=== PATIENT | female | born 1995 | race Caucasian/White ===

== ENCOUNTER 2022-12-24 20:24 | Observation (INO) | payer OTHER, MEDICAID, SELFPAY ==
[2022-12-24 20:27] VITALS: BP 158/90; PULSE 95; RESP 20; TEMP 36.2; O2SAT 100
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
[2022-12-24] MEDS: ACETAMINOPHEN 500 MG TABLET 1000 MG PO (21:48)
[2022-12-24 22:10] VITALS: BMI 48.3
[2022-12-24 22:14] VITALS: BP 117/56; PULSE 75; RESP 18; TEMP 36.4
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
--- NOTE | 2022-12-24 22:34 | PC.NURSE ---
Dr. Dale aware of difficulty monitoring FHT due to maternal size and gestational age. FHR 135, no contractions noted, PT reports she does not feel contractions.
--- NOTE | 2022-12-24 22:40 | LDADM ---
This patient, Geneva Allen, was admitted to OB Post 116 on 12/24/22 at 21:53. Plans for labor, pain management and were discussed with patient. Patient/family oriented to hospital policies and general routines including ID bracelet, bed and alarms, visiting hours, pain management, procedures, bathroom and other care routines, personal items, smoking policy, room service/diet and guest tray routines, infant security routines, and visiting hours. Patient/Family are encouraged to report perceived risks to care and to ask questions if they do not understand what they are told or what they should do. See OBIX for further documentation.
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
== END 2022-12-24 23:09 | disposition home or self-care (01) ==
LOC: ANHED 21:40 → ANHOBPP 21:57
PROVIDERS: Admitting Provider Obstetrics & Gynecology; Emergency Provider Emergency Medicine; PCP Nurse Practitioner Family; Visit Provider Obstetrics & Gynecology
DX: Z04.1 Encounter for examination and observation following transport accident (principal); Z3A.21 21 weeks gestation of pregnancy
CPT/HCPCS: 99285; A9270; G0378; G0379

== ENCOUNTER 2023-03-10 17:06 | Outpatient (CLI) | payer OTHER, MEDICAID, SELFPAY ==
--- NOTE | ~2023-03-10 | US_ITS ---
EXAMINATION: US OB BPP wo non-stress DATE: 03/10/2023 21:14 INDICATION: Nonreactive NST. TECHNIQUE: Real-time ultrasound of the pelvis was performed. COMPARISON: None. FINDINGS: There is a single living fetus in breech presentation, transverse lie. The placenta is posterior to the right. The cervix was obscured. heart rate is 143 bpm. The amniotic fluid index is 18.1 cm, which is normal (5th to 95th percentile is 8.6 to 24.2 cm). Biophysical profile performed by the technologist: breathing (30 sec sustained breathing in 30 minutes): 2 out of 2. movement (3 gross body movements in 30 minutes: 2 out of 2. tone (one episode of dkgcebr-ksyfpseoh-gdqkpqd limb movement): 2 out of 2. Amniotic fluid pocket (2 cm): 2 out of 2. Total score: 8 out of 8. IMPRESSION: Single living fetus in breech presentation. Biophysical profile 8 out of 8. Reviewed, dictated and finalized at location K.
[2023-03-10 17:34] VITALS: BP 96/65; PULSE 90
[2023-03-10 17:38] LABS: Basophils Percent Auto 0.2 % (0.2-1.2); Eosinophils Absolute Auto 0.1 K/mm3 (0-0.3); Eosinophils Percent Auto 0.7 % (0-4.4); Hemoglobin 10.2 g/dL (12.0-15.0); Immature Granulocyte Absolute 0.06 K/mm3 (0.00-0.031); Immature Granulocyte Percent A 0.5 % (0-0.5); Lymphocytes Absolute Auto 2.15 K/mm3 (0.9-3.2); Lymphocytes Percent Auto 16.8 % (18.3-44.2); Mean Corpuscular HGB Conc 31.9 g/dl (32-36); Mean Corpuscular Hemoglobin 24.8 pg (26-34); Mean Corpuscular Volume 77.9 fl (80-100); Mean Platelet Volume 9.5 fl (7.4-10.4); Monocytes Absolute Auto 1.1 K/mm3 (0.1-0.6); Monocytes Percent Auto 8.8 % (2.6-8.5); Neutrophils Absolute Auto 9.3 K/mm3 (1.3-6.7); Platelet Count Result 341 k/mm3 (150-375); Red Blood Count 4.11 M/mm3 (4.2-5.4); Red Cell Distribution Width 15.9 % (11.5-14.5); White Blood Count 12.8 K/mm3 (4.5-10.0)
[2023-03-10 17:45] LABS: Appearance Urine Cloudy (Clear); Bacteria Urine 2+ /hpf; Bilirubin Urine Negative (Negative); Blood Urine Negative (Negative); Color Urine Yellow (Yellow); Glucose Urine UA Negative (Negative); Ketones Urine Trace mg/dL (Negative); Leukocyte Esterase Ur Trace LEU/UL (NEGATIVE); Nitrate Urine Negative (Negative); Non Pathogenic Casts 0-2; Protein Urine Trace mg/dL (Negative); RBC Urine 0-2 /hpf (0-2); Specific Grav Ur 1.028 (1.001-1.035); Squamous Epithelial Cell Urine Many /hpf (Few); pH Urine 5.5 (5.0-9.0)
[2023-03-10 17:46] VITALS: BP 120/73; PULSE 86; TEMP 36.5
[2023-03-10 17:48] LABS: Alanine Aminotransferase 19 U/L (6-35); Albumin Level 3.6 g/dL (3.5-5.1); Alkaline Phosphatase 90 U/L (38-126); Anion Gap 7 mmol/L (8-16); Aspartate Amino Transferase 23 U/L (14-36); Bilirubin,Total 0.3 mg/dL (0.2-1.3); Blood Urea Nitrogen 9 mg/dL (7-17); Calcium 9.2 mg/dL (8.4-10.2); Carbon Dioxide 23 mmol/L (22-30); Chloride 100 mmol/L (98-107); Estimated Glomerular Filt Rate > 60; Glucose 85 mg/dL (65-110); Potassium 3.9 mmol/L (3.4-5.0); Sodium 130 mmol/L (137-145); Uric Acid 3.9 mg/dL (2.5-7.5)
[2023-03-10 17:49] LABS: Add Urine Microscopic? YES; Creatinine Urine 213.3 mg/dL
[2023-03-10 18:01] VITALS: BP 145/81; PULSE 88
[2023-03-10] MEDS: ACETAMINOPHEN 500 MG TABLET 1000 MG PO (18:15)
[2023-03-10 18:31] VITALS: BP 122/84; PULSE 90
[2023-03-10 18:46] VITALS: BP 129/65; PULSE 90
[2023-03-10 18:47] LABS: Total Protein Urine Random < 5 mg/dL; Ur Ttl Prot Creatinine Ratio < 0.02 mg/mg (0-0.20)
== END 2023-03-10 21:10 | disposition home or self-care (01) ==
LOC: ANHOBOP 17:13 → ANHOBPP 17:13
PROVIDERS: Advanced Practice Midwife; PCP Nurse Practitioner Family; Visit Provider Obstetrics & Gynecology
DX: O13.9 Gestational [pregnancy-induced] hypertension without significant proteinuria, unspecified trimester (principal); Z3A.00 Weeks of gestation of pregnancy not specified
CPT/HCPCS: 36415; 76819; 80053; 81001; 82570; 84156; 84550; 85025; 87086; 99199; A9270

== ENCOUNTER 2023-04-20 16:13 | Inpatient (IN) | payer OTHER, MEDICAID, SELFPAY ==
[2023-04-20] VITALS (11 sets, daily range): BP systolic 94–129; BP diastolic 57–98; PULSE 80–113; TEMP 36.1–36.5; BMI 51.7
--- NOTE | 2023-04-20 16:36 | LDADM ---
This patient, Geneva Allen, was admitted to Labor/Delivery/Recovery 104 on 04/20/23 at 16:13. Plans for labor, pain management and were discussed with patient. Patient/family oriented to hospital policies and general routines including ID bracelet, bed and alarms, visiting hours, pain management, procedures, bathroom and other care routines, personal items, smoking policy, room service/diet and guest tray routines, security routines, and visiting hours. Patient/Family are encouraged to report perceived risks to care and to ask questions if they do not understand what they are told or what they should do. See OBIX for further documentation.
[2023-04-20] MEDS: DINOPROSTONE 10 MG VAG INSERT VAGINAL (16:40)
[2023-04-20 16:42] LABS: Basophils Percent Auto 0.1 % (0.2-1.2); Eosinophils Absolute Auto 0.1 K/mm3 (0-0.3); Eosinophils Percent Auto 0.6 % (0-4.4); Hemoglobin 10.6 g/dL (12.0-15.0); Immature Granulocyte Absolute 0.03 K/mm3 (0.00-0.031); Immature Granulocyte Percent A 0.3 % (0-0.5); Lymphocytes Absolute Auto 2.25 K/mm3 (0.9-3.2); Lymphocytes Percent Auto 18.8 % (18.3-44.2); Mean Corpuscular HGB Conc 32.1 g/dl (32-36); Mean Corpuscular Hemoglobin 24.6 pg (26-34); Mean Corpuscular Volume 76.6 fl (80-100); Mean Platelet Volume 9.8 fl (7.4-10.4); Monocytes Percent Auto 8.5 % (2.6-8.5); Neutrophils Absolute Auto 8.6 K/mm3 (1.3-6.7); Neutrophils Percent Auto 71.7 % (45.5-73.1); Platelet Count Result 326 k/mm3 (150-375); Red Blood Count 4.31 M/mm3 (4.2-5.4); Red Cell Distribution Width 15.1 % (11.5-14.5)
[2023-04-20] MEDS: ESCITALOPRAM OXALATE 10 MG TABLET 20 MG PO (21:24)
[2023-04-20] MEDS: LABETALOL HCL 100 MG TABLET 200 MG PO (21:24)
[2023-04-21] VITALS (97 sets, daily range): BP systolic 121–176; BP diastolic 46–133; PULSE 65–96; TEMP 36.1–36.9; O2SAT 90–100
[2023-04-21] MEDS: miSOPROStol 25 MCG TABLET PO ×3 (02:41→11:25)
[2023-04-21] MEDS: LEVOTHYROXINE SODIUM 88 MCG TABLET PO (07:09)
--- NOTE | 2023-04-21 07:24 | WPDOBADMIT ---
Obstetrics - Admit Note Admission Note: record reviewed. No pertinent additions to the history and/or any subsequent changes in the physical findings that are not consistent with the expected course of the were found. Admit for IOL for chronic hypertension, obesity,plan cytotec, anticipate vaginal delivery Additions to the history and/or subsequent changes in the physical findings follow. None.
[2023-04-21] MEDS: LABETALOL HCL 100 MG TABLET 200 MG PO ×2 (08:51→21:07)
[2023-04-21] MEDS: fentaNYL CITRATE INJ (*CRX) 100 MCG/2 ML VIAL IV PUSH ×2 (12:40→17:40)
[2023-04-21 15:21] LABS: Rapid Plasma Reagin Non-Reactive (NonReactive)
[2023-04-21] MEDS: LACTATED RINGERS 1,000 ML 125 ML IV CONT ×2 (16:00→21:07)
[2023-04-21] MEDS: OXYTOCIN 30 UNITS/NS 500 ML 30 UNITS/500 ML BAG 6 UNITS IV CONT (16:01)
--- NOTE | 2023-04-21 17:55 | PM.OBPNVD ---
OB - PN: Subj Subjective Date/time seen: 04/21/23 17:55 sve 1.5/60/-3, cooks catheter placed 60cc each balloon, pt tolerated well, pitocin, anticipate vaginal delivery OB - PN: Obj Data Labs 04/20/23 16:22 Labs: Laboratory Results - last 24 hr 04/20/23 16:22 RPR Non-reactive OB - PN A/P Time Spent With Patient Time: Total time spent is greater than 50% in coordination of care (as documented) at patient's floor/unit and/or counseling patient:
--- NOTE | 2023-04-21 21:56 | WPDANESEPN ---
Anes - Epidural Procedure Note Date/Time: 04/21/23 21:56 Consent: I have discussed with the patient/family/POA, the placement of an epidural catheter and the use of epidural narcotic/local anesthetic for labor analgesia and/or postoperative pain management, including associated potential risks, benefits, complications and side effects. I have discussed alternative methods of labor analgesia and/or postoperative pain management. The patient/family/POA, understand(s) and wish(es) to proceed with epidural narcotic/local anesthetic for labor analgesia and/or postoperative pain management. Time-Out: A pre-procedural Time-Out was completed immediately before starting the procedure and confirmed: Patient Identification, Site, Procedure, Patient Position and the Availability of Requisite Equipment. Clinical Indications: Labor pain Epidural Insertion Note Patient position: sitting Skin prep: chlorhexidine and sterile drape Needle: 18g Tuohy-Schliff Catheter: 20g Unstyleted Technique: Loss of resistance. Level of insertion: L4/5 Catheter skin darren (cm): 15 Length in epidural space (cm): 10 Skin anesthesia: lidocaine 1% Test dose: 1.5% Lidocaine with 1:[id number] Epi, negative for subarachnoid Inj and negative for intravascular Inj Time of test dose: 21:46 Observations: tolerated well Complications: none
[2023-04-22] VITALS (368 sets, daily range): BP systolic 86–211; BP diastolic 48–185; PULSE 50–161; TEMP 35.9–36.4; O2SAT 85–100
--- NOTE | 2023-04-22 08:06 | PM.OBPNVD ---
OB - PN: Subj Subjective Date/time seen: 04/22/23 08:06 comfortable with epidural SVE 5/-2, AROM clear, odorless fluid, anticipate vaginal delivery OB - PN: Obj Data Labs 04/20/23 16:22 Labs: Laboratory Results - last 24 hr 04/20/23 16:22 RPR Non-reactive OB - PN A/P Time Spent With Patient Time: Total time spent is greater than 50% in coordination of care (as documented) at patient's floor/unit and/or counseling patient:
[2023-04-22] MEDS: LABETALOL HCL 100 MG TABLET 200 MG PO ×2 (09:35→19:24)
[2023-04-22] MEDS: LEVOTHYROXINE SODIUM 88 MCG TABLET PO (09:35)
[2023-04-22] MEDS: LACTATED RINGERS 1,000 ML 125 ML IV CONT ×2 (09:59→17:46)
[2023-04-22] MEDS: ESCITALOPRAM OXALATE 10 MG TABLET 20 MG PO (19:24)
[2023-04-23] VITALS (126 sets, daily range): BP systolic 68–156; BP diastolic 40–111; PULSE 42–154; RESP 16–20; TEMP 35.9–36.8; O2SAT 77–100
[2023-04-23] MEDS: ONDANSETRON INJ 4 MG/2 ML VIAL IV PUSH (01:31)
--- NOTE | 2023-04-23 01:47 | WPDANESEPN ---
Anes - Epidural Procedure Note Date/Time: 04/23/23 01:47 Consent: I have discussed with the patient/family/POA, the placement of an epidural catheter and the use of epidural narcotic/local anesthetic for labor analgesia and/or postoperative pain management, including associated potential risks, benefits, complications and side effects. I have discussed alternative methods of labor analgesia and/or postoperative pain management. The patient/family/POA, understand(s) and wish(es) to proceed with epidural narcotic/local anesthetic for labor analgesia and/or postoperative pain management. Time-Out: A pre-procedural Time-Out was completed immediately before starting the procedure and confirmed: Patient Identification, Site, Procedure, Patient Position and the Availability of Requisite Equipment. Clinical Indications: labor pain Epidural Insertion Note Patient position: sitting Skin prep: chlorhexidine and sterile drape Technique: Loss of resistance. Skin anesthesia: lidocaine 1% Test dose: 1.5% Lidocaine with 1:[id number] Epi, negative for subarachnoid Inj and negative for intravascular Inj Time of test dose: 21:46 Observations: tolerated well Complications: none
[2023-04-23] MEDS: diphenhydrAMINE HCl INJ 50 MG/ML VIAL IV PUSH (02:10)
--- NOTE | 2023-04-23 04:36 | PM.IMHP ---
H&P: HPI History of Present Illness Date/Time: 04/23/23 04:36 Chief Complaint: pt in labor. pt has been admitted since 04/20 for Induction of labor. has been complicated by chronic hypertension , obsesity, hypothyroidism, anxiety, marginal umbilical cord insertion and circumvallate placenta. Blood pressures have been stable throughout and pt denies any complaints of headache, visual changes, or any pain. pt is currently comfortable with epidural. FHR category 2, contractions now occasional, pitocin has been stopped. Review of Systems Review of Systems: All systems reviewed & are unremarkable except as noted in HPI and below PMFSH Past Medical History Medical History Hypertension Family History Family History (Updated 04/10/23 @ 14:48 by Liz Madera RN) Grandparent Asthma Grandparent Leukemia Grandparent History of heart surgery Social History Social History Smoking status: Never smoker Substance use: never Lack of Transportation: No Lack of Food: Never True Current Housing: I Have Housing Concerned About Future Housing: No Difficulty Paying Gas/Electric Bills: No Difficulty Paying for Meds: No Currently Unemployed: No Education: Don't Know Difficulty w/ Childcare or Family Care: No Spiritual care concerns: No Meds Home Medications and Allergies Home Medications Medication Instructions Recorded Confirmed Type aspirin 81 mg chewable tablet 81 mg PO DAILY 04/10/23 04/20/23 History escitalopram oxalate 20 mg tablet 20 mg PO DAILY 04/10/23 04/10/23 History labetalol 200 mg tablet 200 mg PO BID 04/10/23 04/10/23 History levothyroxine 88 mcg tablet 88 mcg PO DAILY 04/10/23 04/10/23 History ondansetron 4 mg disintegrating 4 mg PO DAILY 04/10/23 04/10/23 History tablet vit#24-iron amino acid 1 tablet PO DAILY 04/10/23 04/10/23 History chelat-folic acid 30 mg-975 mcg tablet Allergies Allergy/AdvReac Type Severity Reaction Status Date / Time No Known Allergies Allergy Mild Verified 04/10/23 14:30 Vital Signs Vital Signs - 24 hr 04/22/23 04:41 04/22/23 04:46 04/22/23 04:47 Temperature Pulse Rate 78 Blood Pressure 111/64 Pulse Oximetry 96 94 04/22/23 04:51 04/22/23 04:56 04/22/23 05:01 Temperature Pulse Rate Blood Pressure Pulse Oximetry 92 97 95 04/22/23 05:02 04/22/23 05:06 04/22/23 05:11 Temperature Pulse Rate 80 Blood Pressure 128/68 Pulse Oximetry 96 97 04/22/23 05:16 04/22/23 05:17 04/22/23 05:21 Temperature Pulse Rate 88 Blood Pressure 130/63 Pulse Oximetry 96 100 04/22/23 05:26 04/22/23 05:31 04/22/23 05:32 Temperature Pulse Rate 64 Blood Pressure 134/65 Pulse Oximetry 100 98 04/22/23 05:36 04/22/23 05:41 04/22/23 05:46 Temperature Pulse Rate Blood Pressure Pulse Oximetry 100 100 99 04/22/23 05:47 04/22/23 05:51 04/22/23 05:56 Temperature Pulse Rate 82 Blood Pressure 134/63 Pulse Oximetry 98 97 04/22/23 06:01 04/22/23 06:02 04/22/23 06:06 Temperature Pulse Rate 61 Blood Pressure 147/56 H Pulse Oximetry 94 97 04/22/23 06:11 04/22/23 06:16 04/22/23 06:17 Temperature Pulse Rate 64 Blood Pressure 150/64 H Pulse Oximetry 95 89 L 04/22/23 06:21 04/22/23 06:26 04/22/23 06:31 Temperature Pulse Rate Blood Pressure Pulse Oximetry 95 94 99 04/22/23 06:36 04/22/23 06:41 04/22/23 06:46 Temperature Pulse Rate Blood Pressure Pulse Oximetry 100 100 99 04/22/23 06:47 04/22/23 06:51 04/22/23 06:56 Temperature Pulse Rate 76 Blood Pressure 114/98 H Pulse Oximetry 100 100 04/22/23 07:01 04/22/23 07:05 04/22/23 07:06 Temperature Pulse Rate 67 Blood Pressure 86/65 L Pulse Oximetry 100 100 04/22/23 07:08 04/22/23 07:11 04/22/23 07:16 Tempera
[2023-04-23] MEDS: KETOROLAC 30 MG/ML VIAL (*BKC) IV PUSH ×2 (05:30→15:01)
--- NOTE | 2023-04-23 05:52 | P.PNAN_ITS ---
Anes - Eval Final PreProcedure Day of Procedure 04/23/23 05:52 Patient weight: super morbidly obese Heart: regular rate and rhythm Lungs: clear to auscultation Neurological: alert and oriented ASA classification: III Emergent: no Anesthetic plan: proceed Anesthesia type and monitoring: regional epidural and standard monitoring Other findings: existing epid for c/s exam per GW Results Review: All pre-operative results and documents have been reviewed as part of the pre- operative evaluation. Informed Consent: The patient's anesthetic plan and its attendant risks and benefits were discussed with the patient/family/POA. Questions were solicited and answers provided to the satisfaction of the patient/family/POA.
[2023-04-23] MEDS: OXYTOCIN 30 UNITS/NS 500 ML 30 UNITS/500 ML BAG 125 UNITS IV CONT (06:13)
--- NOTE | 2023-04-23 10:07 | OBPPTRN ---
0800 Patient transferred to post room #284 via stretcher. Support person present. Oriented to unit, room, information board, rooming in, admission packet and security measures. Patient verbalizes understanding.
[2023-04-23] MEDS: LACTATED RINGERS 1,000 ML 125 ML IV CONT (10:42)
[2023-04-23] MEDS: LABETALOL HCL 100 MG TABLET 200 MG PO ×2 (10:43→21:12)
[2023-04-23] MEDS: ESCITALOPRAM OXALATE 10 MG TABLET 20 MG PO (10:44)
--- NOTE | 2023-04-23 12:14 | PC.NURSE ---
[id number] Introductions were made, then consulted with patient to assess needs related to . Mother led the conversation with her?plans to feed?her infant and the?experience so far. There is separation between mother and infant at this time. RN recommended to mother to initiate hand expression or pumping as she desires to feed infant the colostrum. Mother opts to initiate pumping. Breast pump provided due to separation. Instructions given on cleaning, care, usage, that there should be no pain, pumping schedule for milk production, collection, and storage of human milk. Patient was assessed for correct placement, flange size, to pump for comfort and nipple stretching/stimulation for adequate milk production every 3 hours (8 times in 24 hours) 1-2 times at night. Mother voiced understanding of the education shared along with mom and baby guide for additional resource information. Reported to the primary RN.
[2023-04-23] MEDS: HYDROcodone/acetaminophen (*CRX) 5-325 MG TABLET 1 TAB PO ×2 (19:46→22:46)
[2023-04-23] MEDS: SIMETHICONE 80 MG TAB.CHEW PO ×2 (19:47→22:47)
[2023-04-23] MEDS: DOCUSATE SODIUM 100 MG CAPSULE PO (19:47)
[2023-04-23] MEDS: IBUPROFEN 600 MG TABLET PO (22:47)
[2023-04-24 00:04] VITALS: BP 134/62; PULSE 88; RESP 18; TEMP 36.3; O2SAT 100
[2023-04-24] MEDS: LORATADINE 10 MG TABLET PO (01:12)
[2023-04-24] MEDS: SIMETHICONE 80 MG TAB.CHEW PO (04:06)
[2023-04-24] MEDS: HYDROcodone/acetaminophen (*CRX) 10-325 MG TABLET 1 TAB PO ×4 (04:06→22:45)
[2023-04-24 04:38] LABS: Basophils Percent Auto 0.1 % (0.2-1.2); Eosinophils Absolute Auto 0.1 K/mm3 (0-0.3); Eosinophils Percent Auto 0.3 % (0-4.4); Hematocrit 31.5 % (37.0-47.0); Immature Granulocyte Absolute 0.11 K/mm3 (0.00-0.031); Immature Granulocyte Percent A 0.5 % (0-0.5); Lymphocytes Percent Auto 9.1 % (18.3-44.2); Mean Corpuscular HGB Conc 31.7 g/dl (32-36); Mean Corpuscular Hemoglobin 24.8 pg (26-34); Mean Corpuscular Volume 78.2 fl (80-100); Mean Platelet Volume 9.8 fl (7.4-10.4); Monocytes Percent Auto 9.2 % (2.6-8.5); Neutrophils Absolute Auto 17.7 K/mm3 (1.3-6.7); Neutrophils Percent Auto 80.8 % (45.5-73.1); Platelet Count Result 305 k/mm3 (150-375); Red Blood Count 4.03 M/mm3 (4.2-5.4); Red Cell Distribution Width 15.1 % (11.5-14.5)
[2023-04-24 05:08] VITALS: BP 145/68; PULSE 84; RESP 18; TEMP 35.8; O2SAT 100
--- NOTE | 2023-04-24 05:12 | P.PNOB_ITS ---
OB - PN: Subj Subjective Date/time seen: 04/24/23 05:12 pp day 1 s/p section, primary baby at [facility] doing well, Iv antibiotics pain managed flatus present OB - PN: Obj Data Labs 04/20/23 16:22 OB - PN A/P Plan day: 1 Plan: routine care and other (may go out on pass to see baby today) Time Spent With Patient Time: Total time spent is greater than 50% in coordination of care (as documented) at patient's floor/unit and/or counseling patient: Review of Systems Review of Systems: All systems reviewed & are unremarkable except as noted in HPI and below Exam Const: General: cooperative and healthy appearing Chest: Chest palpation & inspection: normal inspection of the chest Resp: Effort & Inspection: normal respiratory effort Cardio: Rate: regular rate Rhythm: regular rhythm GI: Other: Incision CDI Skin: General skin exam: normal color Neuro: General: patient oriented x3 Extrem: Right lower extremity: edema Left lower extremity: edema Psych: Appearance: grossly normal
[2023-04-24] MEDS: LEVOTHYROXINE SODIUM 88 MCG TABLET PO ×2 (06:54→07:00)
[2023-04-24 10:30] VITALS: BP 137/68; PULSE 90; RESP 18; TEMP 36.4; O2SAT 100
[2023-04-24] MEDS: IBUPROFEN 600 MG TABLET PO ×2 (10:44→19:35)
[2023-04-24 10:46] VITALS: PULSE 90
[2023-04-24] MEDS: LABETALOL HCL 100 MG TABLET 200 MG PO ×2 (10:46→20:45)
[2023-04-24] MEDS: DOCUSATE SODIUM 100 MG CAPSULE PO ×2 (10:52→19:37)
[2023-04-24] MEDS: MULTIVIT/MIN/PREN/FOL AC/IRON TABLET 1 TAB PO (10:52)
--- NOTE | 2023-04-24 11:30 | PC.NURSE ---
Patient left on pass to see at [facility]. Documentation signed and on front of chart.
--- NOTE | 2023-04-24 17:20 | WPDANLDPN2 ---
Anes-Prog Note L&D Date/Time: 04/24/23 17:20 Comfortable throughout: section Neuraxial method: epidural Epidural/Spinal procedure site: clean & non-tender Neuro status: Neuro function grossly intact. Cardiovascular status: normal Respiratory status: normal Airway patency: baseline Mental status: baseline Post-Op hydration status: normal Vital Signs: Last Vital Signs Temp 36.4 C 04/24/23 10:30 Pulse 90 04/24/23 10:46 Resp 18 04/24/23 10:30 BP 137/68 04/24/23 10:30 Pulse Ox 100 04/24/23 10:30 O2 Del Method Room Air 04/24/23 10:30 Pain score (VAS): no complaints I/O: Intake & Output 04/24/23 04/24/23 04/24/23 07:59 15:59 23:59 Intake Total 700 Output Total 800 Balance -100 Post-procedural complaints: none Patient feedback: Patient satisfied with anesthetic care.
--- NOTE | 2023-04-24 17:21 | WPDANLDNPN2 ---
Anes-Prog Note L&D-Neuraxial Date/Time: 04/24/23 17:21 Neuraxial medications: epidural PF morphine Opiod-related complaints: none Patient feedback: Patient satisfied with post-operative pain management.
[2023-04-24] MEDS: POLYSACCHARIDE IRON COMPLEX 150 MG CAPSULE PO (19:34)
[2023-04-24 20:45] VITALS: PULSE 102
[2023-04-24] MEDS: ESCITALOPRAM OXALATE 10 MG TABLET 20 MG PO (20:45)
[2023-04-25 00:01] VITALS: BP 157/82; PULSE 102; RESP 18; TEMP 37.1; O2SAT 98
[2023-04-25] MEDS: LEVOTHYROXINE SODIUM 88 MCG TABLET PO (06:54)
[2023-04-25] MEDS: HYDROcodone/acetaminophen (*CRX) 10-325 MG TABLET 1 TAB PO (06:57)
[2023-04-25 07:00] VITALS: BP 133/75; PULSE 73; RESP 18; TEMP 36.5
--- NOTE | 2023-04-25 08:54 | W.PM.PROC2 ---
Procedure Note - Detailed Date of Procedure 04/25/23 Pre-op Diagnosis failure to descend, nonreassuring FHT's Post-op Diagnosis Same Procedure Performed Low-transverse section Surgeon Yani Dale MD Anesthesia Spinal Findings Normal gestational maternal anatomy, average size , normal Apgars. Description of Procedure The patient was taken the operating room. She was prepped and draped in dorsal supine position with a leftward tilt. This was done after spinal anesthetic was applied. A low-transverse skin incision was made and carried down till of the fascia with the knife. The fascial incision was made with the knife. The fascial incision was extended laterally with Martinez scissors. The fascia was tented upward superiorly and inferiorly the rectus muscles were dissected off bluntly. The rectus muscles were the midline. The preperitoneal fat and peritoneum were dissected open bluntly at the superior aspect of the rectus muscles. The peritoneal incision was extended superior and inferior with good position of bladder. The uterine incision was made with a scalpel down to the level of the amniotic cavity. The amniotic cavity was entered bluntly. The was delivered. The cord was clamped and cut and the was handed off to waiting pediatric staff. Cord bloods were obtained. The placenta was removed manually. The uterus was exteriorized. The uterus was cleared of all clots, debris and membranes. The uterus was closed in 0 Vicryl running lock fashion. An imbricating over a was placed along the incision line as well. The uterus was returned to the abdomen. The gutters were cleared of all clots and debris. The fascia was closed with 0 Vicryl running fashion. The subcutaneous tissue was irrigated pinpoint bleeders were cauterized. The skin was closed with subcuticular absorbable salvador. The skin incision line was covered with glue. The patient tolerated the procedure well. She has taken recovery room in stable condition. Sponge lap and needle counts were correct x2. Estimated Blood Loss -558.0 Urine Output 800 Complications No immediate complications Condition Stable Disposition PACU
[2023-04-25 09:53] VITALS: PULSE 100
[2023-04-25] MEDS: MULTIVIT/MIN/PREN/FOL AC/IRON TABLET 1 TAB PO (09:53)
[2023-04-25] MEDS: LABETALOL HCL 100 MG TABLET 200 MG PO (09:53)
[2023-04-25] MEDS: DOCUSATE SODIUM 100 MG CAPSULE PO (09:53)
[2023-04-25] MEDS: TETANUS,DIPHTHERIA,AC PERTUSSIS ADULT (0.5 ML) BOOSTRIX IM (09:54)
--- NOTE | 2023-04-25 09:54 | PM.OBPNVD ---
OB - PN: Subj Subjective Date/time seen: 04/25/23 09:54 Patient comments: no complaints, pain well controlled, incisional pain, tolerating diet and flatus present OB - PN: Obj Data Labs 04/24/23 04:01 OB - PN A/P Plan day: 2 Plan: routine care Comments: POD#2 LTCS - no problems, Time Spent With Patient Time: Total time spent is greater than 50% in coordination of care (as documented) at patient's floor/unit and/or counseling patient: Exam Const: General: comfortable, no acute distress and alert Resp: Effort & Inspection: normal respiratory effort Auscultation: no crackles, no rales and no rhonchi Cardio: Rate: regular rate Heart sounds: no click, no murmurs and no rubs GI: Inspection: non-distended Auscultation: normal bowel sounds Other: Incision - CDI Extrem: General: normal to inspection, no pedal edema and no calf tenderness
--- NOTE | 2023-04-25 09:54 | PM.OBDSVD ---
DS: Admitting Diagnosis Discharge Date 04/25/23 Admitting Diagnosis term OB - DS: Summary OB Procedures : None OB Procedures Intrapartum: OB Procedures: : None Peripartum Data Procedures: Procedures Operation Date: 04/23/23 04:46 <No data on this case meets the specified criteria> Time Spent with Patient Time attestation: Total time spent providing and/or coordinating discharge services: Discharge Plan Discharge Discharging Clinician: Yani Dale Patient Disposition: Home, Self-Care Activity: pelvic rest Diet: regular Patient Instructions: Antibiotic Form Stand Alone Forms: General Discharge Information Follow-up/Referrals: Yani Dale MD [Physician] - Discharge Medications: New oxycodone-acetaminophen 5-325 mg tablet 1 tablet PO Q4H PRN (Reason: pain) Qty: 25 0RF Continued labetalol 200 mg tablet 200 mg PO BID levothyroxine 88 mcg tablet 88 mcg PO DAILY escitalopram oxalate 20 mg tablet 20 mg PO DAILY aspirin 81 mg Tablet,Chewable 81 mg PO DAILY ondansetron 4 mg tablet,disintegrating 4 mg PO DAILY PNV no.[id number]-[id number] acid 30-975 mg-mcg Tablet 1 tablet PO DAILY Date of admission: 04/20/23 16:13 Primary Care Provider: JaquanMicaela Admitting Provider: Yani Dale Attending physician on admission: Yani Dale Condition: Stable
[2023-04-26 08:51] VITALS: BP 133/59; PULSE 73; RESP 20; TEMP 36.9; O2SAT 98
== END 2023-04-25 10:40 | disposition home or self-care (01) | DRG 788 ==
LOC: ANHLDR 04-22 14:28 → ANHOB2 04-23 08:04
PROVIDERS: Advanced Practice Midwife; Admitting Provider Obstetrics & Gynecology; PCP Nurse Practitioner Family; Visit Provider Obstetrics & Gynecology
PROC: (CPT 59514; principal; 2023-04-23 04:45)
DX: O10.92 Unspecified pre-existing hypertension complicating childbirth (principal); Z37.0 Single live birth; Z3A.38 38 weeks gestation of pregnancy; O36.8330 Maternal care for abnormalities of the fetal heart rate or rhythm, third trimester, not applicable or unspecified; O32.4XX0 Maternal care for high head at term, not applicable or unspecified; O99.214 Obesity complicating childbirth; E66.01 Morbid (severe) obesity due to excess calories; O99.344 Other mental disorders complicating childbirth; O99.284 Endocrine, nutritional and metabolic diseases complicating childbirth; E03.9 Hypothyroidism, unspecified; O43.123 Velamentous insertion of umbilical cord, third trimester
CPT/HCPCS: 36415; 85025; 86592; 86850; 86900; 86901; 90715; A9270; J1200; J1885; J2274; J2405; J2590; J2795; J3010; J7120

== ENCOUNTER 2024-08-23 09:07 | Outpatient (CLI) | payer OTHER, MEDICAID, SELFPAY ==
[2024-08-23 09:47] LABS: Immature Reticulocyte Fraction 16.5 % (3.0-15.9); Reticulocyte Hemoglobin Conten 27.2 pg (28.2-36.6); Reticulocyte Percent 1.48 % (0.7-4.3); Reticulocytes Absolute 0.07 10^6/uL (0.02-0.10)
[2024-08-23 11:16] LABS: Iron 47 ug/dL (37-170)
[2024-08-23 11:26] LABS: Percent Iron Saturation 12 % (20-50)
[2024-08-23 12:26] LABS: Folic Acid 9.9 ng/mL (2.76->20)
--- OUTSIDE RECORDS SUMMARY | 2024-08-24 22:16 | XMS_ITS | Data Portability ---
Author Organization [facility] Address [address] [place] [address] [place] [address] Assessment No assessment recorded. Plan of Treatment Reminders Order Date Submit Date Provider Last Modified By Organization Details Last Modified Time Details Appointments None recorded. Lab test, urine 2022 023 [email or web address] [facility] [address], [address], [place], [address], 16:09:28 TSH, serum or plasma 2022 023 [facility] (Lab), [address], [place], [address], 03:53:44 Referral None recorded. Procedures None recorded. Surgeries None recorded. Imaging None recorded. Medication Orders None recorded. Patient TargetsNo targets recorded. Patient InstructionsNo instructions recorded. Reason for Referral None Reported. Results Created Date Observation Date Name Description Value Unit Range Abnormal Flag Note LastModifiedBy Organization Detail LastModifiedTime 06/02/2006/02/2023 TSH, REFLE X FREE T4 TSH 1.46 uIU/m L 0.30-5 .33 Not Available [facility] (Lab) [address], [place], [address], 06/03/2023 03:53:42 06/02/20 23 06/02/2023 pregn stormy test, urine HCG negati ve Not Available [facility] [address], [place], [address], 06/02/2023 16:09:02 04/02/20 23 04/02/2023 US, obste tric, bioph ysica l profi le + non-s tress test No observ ation record ed. [email or web address] [facility] [address], [place], [address], 04/02/2023 13:52:50 04/02/20 23 04/02/2023 US, obste tric, bioph ysica l profi le + non-s tress test No observ ation record ed. LINDA Walker [address], [place], [address], 04/19/2023 05:33:48 04/02/20 23 04/02/2023 non-s tress test No observ ation record ed. [email or web address] [facility] [address], [place], [address], 04/02/2023 21:57:47 04/09/20 23 04/09/2023 US, obste tric, bioph ysica l profi le + non-s tress test No observ ation record ed. [email or web address] [facility] [address], [place], [address], 04/09/2023 12:12:48 04/09/2004/09/2023 US, obste tric, bioph ysica l profi le + non-s tress test No observ ation record ed. LINDA Walker [address], [place], [address], 04/26/2023 05:35:43 04/09/20 23 04/09/2023 non-s tress test No observ ation record ed. [email or web address] [facility] [address], [place], [address], 04/09/2023 10:33:04 04/16/20 23 04/16/2023 US, obste tric, follo w-up No observ ation record ed. LINDA Denise [address], [place], [address], 04/30/2023 06:03:41 04/16/2004/16/2023 US, obste tric, bioph ysica l profi le + non-s tress test No observ ation record ed. [address], [place], [address], 04/16/2023 14:17:35 04/16/2004/16/2023 US, obste tric, follo w-up No observ ation record ed. [email or web address], [place], [address], 04/16/2023 14:17:27 04/16/2004/16/2023 non-s tress test No observ ation record ed. [email or web address] [facility] [address], [place], [address], 04/16/2023 13:58:54 Result Notes None recorded. Problems Name Problem SNOMED Code Status Onset Date Resolution Date Notes Provider Name and Address Organization Details Recorded Time Abnormal uterine bleeding 1979855376 9100 Completed 201801/20/2021 Other specifie d abnormal uterine and vaginal bleeding ;Recorde d Elsewher e: No Locat ion: [facility] S ource: EHR Software Development Analyst pam: N Practi ce ID: 0001 Darvin lable Time: 03:15:00 PM Zoë rodríguez [place] - [facility] 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 14:26:31 Bleeding [id number] Completed 201801/20/2021 Abnormal uterine and vaginal bleeding , unspecif ied;Walker rded Elsewher e: No [facility]at [facility] S ource: EHR Software Development Analyst pam: N Yoko ce ID: 0001 Darvin lable Time: 01:15:32 PM Zoë rodríguez, [facility] 14:26:[address] Concept Completed 201501/20/2021 Encounte r for surveill ance of other contrace ptives;R ecorded Elsewher e: No Locat ion: [facility] S ource: EHR Software Development Analyst pam: Ron Babcock ce ID: 0001 Darvin lable Time: 02:00:00 PM Zoë rodríguez, [facility] 14:26:36 Clinical finding Completed 201601/20/2021 Obesity; Recorded Elsewher e: No Locat ion: [facility] S ource: EHR Software Development Analyst pam: N Yoko ce ID: 0001 Darvin lable Time: 02:45:00 PM Zoë rodríguez, [facility] 14:26:20 Secondar y amenorrh ea [id number] Completed 201801/20/2021 Secondar y amenorrh ea;Recor ded Elsewher e: No Locat ion: [facility] S ource: EHR Software Development Analyst pam: N Yoko ce ID: 0001 Darvin lable Time: 01:00:00 PM Zoë rodríguez, [facility] 14:26:23 Finding of body mass index 295027678 Completed 201501/20/2021 Body mass index (BMI) 40.0-44. 9, adult;Re corded Elsewher e: No Locat ion: [facility] S ource: EHR Software Development Analyst pam: N Maurati ce ID: 0001 Darvin lable Time: 05:15:00 PM Zoë rodríguez [facility] 14:26:28 Pregnanc y test negative [id number] Completed 201601/20/2021 Encounte r for pregnanc y test, result negative ;Recorde d Elsewher e: No Locat ion: [facility] S ource: EHR Software Development Analyst pam: N Maurati ce ID: 0001 Darvin lable Time: 01:00:00 PM Zoë rodríguez [facility] 14:26:26 Educatio n Completed 201601/20/2021 Encounte r for other general counseli ng and advice on contrace ption;Re corded Elsewher e: No Locat ion: [facility] S ource: EHR Software Development Analyst pam: N Maurati ce ID: 0001 Darvin lable Time: 02:45:00 PM Zoë rodríguez [facility] 14:26:32 Hyperten sive disorder 86331510 Completed 201601/20/2021 Hyperten layla;Rec orded Elsewher e: No Locat ion: [facility] S ource: EHR Software Development Analyst pam: N Maurati ce ID: 0001 Darvin lable Time: 02:45:00 PM Zoë rodríguez [facility] 14:26:38 Amenorrh ea [id number] Completed 201801/20/2021 Amenorrh ea;Recor ded Elsewher e: No Locat ion: [facility] S ource: EHR Software Development Analyst pam: N Maurati ce ID: 0001 Darvin lable Time: 03:30:00 PM Zoë rodríguez [facility] 14:26:21 Procedur e Completed 201601/20/2021 Encounte r for checking , reinsert ion or removal of implanta ble subderma l contrace ptive;Re corded Elsewher e: No Locat ion: [facility] S ource: EHR Software Development Analyst pam: Ron Babcock ce ID: 0001 Darvin lable Time: 02:45:00 PM Zoë rodríguez, [facility] [address] 14:26:[address] Concept Completed 201601/20/2021 Encntr for general adult medical exam w/o abnormal findings ;Recorde d Elsewher e: No Locat ion: [facility] S ource: EHR Software Development Analyst pam: N Yoko ce ID: 0001 Darvin lable Time: 08:30:00 AM Zoë rodríguez, [facility] 1 14:26:29 Pregnanc y 07931339 Completed 202205/03/2023 [facility] 3 14:26:38 Severe obesity complica ting pregnanc y 1583017324 4638064 Completed BMI 46 [facility], [facility] 3 14:26:28 Chronic hyperten layla in obstetri c context 4601097 Completed [employer] [facility] 3 14:26:28 Hypothyr oidism 43845544 Completed 11/23 increase d to 50 levo, rpt 4-6 wks Emmy [facility], [facility] 3 14:26:28 Polycyst ic ovary syndrome 407243413 Active 2022 Linda Chu MD [address], [place], [address], [place] [facility] 3 17:51:33 Severe obesity complica ting pregnanc y 5014566889 1768314 Active BMI 46 Britaney Leland null, [facility] 3 14:26:28 Chronic hyperten layla in obstetri c context 2515522 [facility] 14:26:28 Hypothyr oidism 89669262 Active 11/23 increase d to 50 levo, rpt 4-6 wks [facility]y [facility], [facility] 3 14:26:28 Anxiety in pregnanc y 4530906212 9109 Active Emmy Ha [facility] 3 14:26:28 Anxiety in pregnanc y 4183145664 9109 Completed [facility] 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 also MCI and circumva llate [facility], [facility] 3 15:48:22 Subchori onic hematoma 672836162 Completed SUBAMNIO TIC HEM [facility], [facility] 3 14:26:28 Placenta circumva llata 8384718 Completed [facility]y [facility], [facility] 3 14:26:28 Marginal insertio n of umbilica l cord 41458393 Completed Emmy Ha [facility] 3 14:26:28 Anemia 376121519 Completed 2022 1 tab slowfe BID Emm[facility] 3 14:26:28 Problem Notes None recorded. Procedures Surgical History Date Name Laterality Status Provider Name and Address Organization Details Recorded Time 06/02/20 23 Control Implant Insertion completed Crow Dale MD [address], [place], [address], [place] [facility] 06/02/2023 16:26:12 04/23/20 23 Caesarean Section completed Martina Greenwood [facility] 07/05/2024 15:40:47 09/15/19 23 Date of Last Pap Smear completed Alize Vaughan [facility] 09/15/2022 15:22:04 01/29/20 17 Tonsillectomy completed Zoë Eduardo [facility] 01/20/2021 14:29:08 08/02/19 14 extraction of wisdom tooth completed Alize Vaughan [facility] 09/15/2022 15:23:13 Imaging Results Imaging Date Name Status LastModified by Organiz ation Details LastModified Time 04/02/2023 US, obstetric, biophysical profile + non-stress test completed [address], [place], [address], 04/02/2023 13:52:50 04/02/2023 US, obstetric, biophysical profile + non-stress test active LINDA Denise [address], [place], [address], 04/19/2023 05:33:48 04/02/2023 non-stress test completed [email or web address], [place], [address], 04/02/2023 21:57:47 04/09/2023 US, obstetric, biophysical profile + non-stress test completed [address], [place], [address], 04/09/2023 12:12:48 04/09/2023 US, obstetric, biophysical profile + non-stress test active LINDA Denise [address], [place], [address], 04/26/2023 05:35:43 04/09/2023 non-stress test completed [email or web address] [facility] [address], [place], [address], 04/09/2023 10:33:04 04/16/2023 US, obstetric, follow-up active LINDA Walker [address] [facility], [place], [address], 04/30/2023 06:03:41 04/16/2023 US, obstetric, biophysical profile + non-stress test completed [address], [place], [address], 04/16/2023 14:17:35 04/16/2023 US, obstetric, follow-up completed [facility] [address] [place] [address] [address], [place], [address], 04/16/2023 14:17:27 04/16/2023 non-stress test completed [email or web address] [facility] [address], [place], [address], 04/16/2023 13:58:54 Procedure Notes None recorded. Medical Equipment None Reported. Allergies No known drug allergies Medications Name Sig Start Date Stop Date Status Note LastModified by Organization Details LastModified Time labetalol 200 mg tablet TAKE 1 TABLET BY MOUTH TWICE DAILY 07/05 completed Not Available Not Available Not Available fluconazo le 150 mg tablet TAKE 1 TABLET BY MOUTH EVERY 72 HOURS FOR 6 DAYS 02/10 completed Not Available Not Available Not Available ondansetr on HCl 4 mg tablet TAKE 1 TABLET BY MOUTH EVERY 4 TO 6 HOURS NEEDED 04/02 completed Not Available Not Available Not Available Prometriu m 100 mg capsule take 2 capsule by oral route every day for 12 days in the evening sequenti ally per 28 day cycle 12/09 completed Prescrib ed Elsewher e: No Locat ion: [facility] odify By: [email or web address] hale DateTime : 12/09/19 04:14:03 PM Not Available Not Available Not Available levothyro xine 25 mcg tablet TAKE 1 TABLET BY MOUTH EVERY DAY 12/16 completed Not Available Not Available Not Available oxycodone -acetamin ophen 5 mg-325 mg tablet TAKE 1 TABLET BY MOUTH EVERY 4 HOURS NEEDED FOR PAIN 07/05 completed Not Available Not Available Not Available levothyro xine 88 mcg tablet TAKE 1 TABLET BY MOUTH EVERY DAY 07/05 completed Not Available Not Available Not Available levothyro xine 50 mcg tablet TAKE 1 TABLET BY MOUTH EVERY DAY DIRECTED 07/05 completed Not Available Not Available Not Available lisinopri l 10 mg tablet TAKE 1 TABLET BY MOUTH EVERY DAY 09/15 completed Not Available Not Available Not Available progester one micronize d 200 mg capsule Take 1 capsule every day by oral route for 10 days. 09/15 completed Not Available Not Available Not Available norethind juan jose acetate 5 mg tablet TAKE 1 TABLET BY MOUTH EVERY DAY FOR 10 CONSECUT MISAEL DAYS PER MONTH 04/13 completed Not Available Not Available Not Available ergocalci ferol (vitamin D2) 1,250 mcg (50,000 unit) capsule TAKE 1 CAPSULE BY MOUTH 1 TIME EVERY WEEK FOR 8 WEEKS active Not Available Not Available No t Available lisinopri l 40 mg tablet TAKE 1 TABLET BY MOUTH EVERY DAY DIRECTED active Not Available Not Available No t Available ondansetr on 4 mg disintegr ating tablet Place 1 tablet every 8 hours by translin gual route. 07/05 completed Not Available Not Available Not Available metformin ER 500 mg tablet,ex tended release 24 hr TAKE 1 TABLET BY MOUTH EVERY DAY DIRECTED active Not Available Not Available No t Available Unisom (doxylami ne) 25 mg tablet Take 1 tablet every day by oral route. 02/10 completed Not Available Not Available Not Available escitalop tasha 10 mg tablet TAKE 1 TABLET BY MOUTH EVERY DAY 04/02 completed Not Available Not Available Not Available escitalop tasha 20 mg tablet TAKE 1 TABLET BY MOUTH EVERY DAY DIRECTED active Not Available Not Available No t Available Jolivette 0.35 mg tablet take 1 tablet by oral route every day 11/29 completed Prescrib ed Elsewher e: No Locat ion: [facility] odify By: mary Valadezte r DateTime : 04/01/20 18 02:15:00 PM Not Available Not Available Not Available Lexapro 5 mg tablet take 2 tablet by oral route every day 11/17 completed Prescrib ed Elsewher e: Yes Loca tion: [facility] odify By: renea Hilton ncounter DateTime : 04/01/20 18 02:15:00 PM Not Available Not Available Not Available Cymbalta 30 mg capsule,d elayed release take 1 capsule by oral route every day 11/06 completed Prescrib ed Elsewher e: Yes Loca tion: [facility] odify By: nader [address] ncounter DateTime : 11/18/19 19 11:15:00 AM Not Available Not Available Not Available aspirin 11/20 completed Not Available Not Available Not Available Unisom (doxylami ne) 11/20 completed Not Available Not Available Not Available 11/20 completed Not Available Not Available Not Available Vitamin B6 02/10 completed Not Available Not Available Not Available Asprin Ec Low Dose active Not Available Not Available Not Available Protonix 40 mg granules delayed-r elease packet take 1 packet by oral route every day mixed in 1 teaspoon ful of applesau ce or apple juice 01/20 completed Prescrib ed Elsewher e: Yes Loca tion: [facility] odify By: mary De Los Santos r DateTime : 12/24/19 19 02:15:00 PM Not Available Not Available Not Available Nexplanon 68 mg subdermal implant Inject by subcutan eous route. active Not Available Not Available No t Available + DHA 07/05 completed Not Available Not Available Not Available Trulicity 0.75 mg/0.5 mL subcutane ous pen injector ADMINIST ER 0.75 MG UNDER THE SKIN EVERY WEEK DIRECTED active Not Available Not Available No t Available Vitals Date Recorded Body height Body mass index (BMI) Body weight Systolic blood pressure Diastolic blood pressure Provider Name and Address Organization Details Last Updated DateTime 04/30/2023 171.45 cm 50 kg/m2 838786.9 2788 g 126 mm[Hg] 76 mm[Hg] [facility] 3 10:37:34 Date Recorded Body height Body mass index (BMI) Body weight Systolic blood pressure Diastolic blood pressure Provider Name and Address Organization Details Last Updated DateTime 05/05/2023 171.45 cm 49.4 kg/m2 572926.5 6 g 136 mm[Hg] 78 mm[Hg] [facility] 3 18:26:45 Date Recorded Body height Body mass index (BMI) Body weight Systolic blood pressure Diastolic blood pressure Provider Name and Address Organization Details Last Updated DateTime 05/27/2023 171.45 cm 50 kg/m2 762933.9 3 g 142 mm[Hg] 80 mm[Hg] [facility] 3 15:02:59 Date Recorded Body height Body mass index (BMI) Body weight Systolic blood pressure Diastolic blood pressure Provider Name and Address Organization Details Last Updated DateTime 06/02/2023 171.45 cm 50 kg/m2 438209.9 3 g 135 mm[Hg] 82 mm[Hg] [facility] 3 16:05:41 Date Recorded Body weight Body mass index (BMI) Body height Systolic blood pressure Diastolic blood pressure Provider Name and Address Organization Details Last Updated DateTime 07/05/2024 574735.6 7 g 51.2 kg/m2 171.45 cm 136 mm[Hg] 76 mm[Hg] Martina Greenwood [facility] 4 15:38:52 Social History Question Answer Notes LastModified by Organizat ion Details LastModified Time Tobacco Smoking Status Never [facility] 11/20/2022 16:55:49 Do You Have An Advance Directive? No Information not available 04/13/2022 What Is Your Level Of Alcohol Consumption? None [email or web address] Information not available 09/15/2022 If You Are , What Was Your Level Of Alcohol Consumption Prior To ? Occasional [email or web address] Information not available 11/20/2022 How Many Years Have You Consumed Alcohol? 3 Information not available 04/13/2022 Are You Blind Or Do You Have Difficulty Seeing? No Information not available 04/13/2022 What Is Your Level Of Caffeine Consumption? Occasional Information not available 04/13/2022 How Much Tobacco Do You Chew? None Information not available 04/13/2022 In The 14 Days Before Symptom Onset, Have You Had Close Contact With A Laboratory-confir med COVID-19 While That Case Was Ill? No Information not available 04/13/2022 In The 14 Days Before Symptom Onset, Have You Had Close Contact With A Person Who Is Under Investigation For COVID-19 While That Person Was Ill? No Information not available 04/13/2022 Have You Been To An Area Known To Be High Risk For COVID-19? No Information not available 04/13/2022 Are You Deaf Or Do You Have Serious Difficulty Hearing? No Information not available 04/13/2022 What Type Of Diet Are You Following? REGULAR Information not available 04/13/2022 What Is The Highest Grade Or Level Of School You Have Completed Or The Highest Degree You Have Received? 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 No Information not available 04/13/2022 Do You Use Protection During Sex? No Information not available 04/13/2022 Do You Use Your Seat Belt Or Car Seat Routinely? Yes Information not available 04/13/2022 Do You Have Smoke And Carbon Monoxide Detectors In Your Home? Yes Information not available 04/13/2022 How Much Tobacco Do You Smoke? No Information not available 04/13/2022 Do You Feel Stressed (tense, Restless, Nervous, Or Anxious, Or Unable To Sleep At Night)? [id number] Information not available 04/13/2022 Do You Use Any Illicit Or Recreational Drugs? No [email or web address] Information not available 09/15/2022 Do You Use Sunscreen Routinely? Yes Information not available 04/13/2022 Have You Used IV Drugs? No Information not available 04/13/2022 Sex: Unknown Functional Status Question Answer Note LastModified by Organizat ion Details LastModified Time Do you have difficulty walking or climbing stairs? No [email or web address] Information not available 11/20/2022 Are you able to walk? [email or web address] Information not available 04/13/2022 Are you able to care for yourself? Yes [email or web address] Information not available 11/20/2022 Do you have difficulty dressing or bathing? No [email or web address] Information not available 11/20/2022 What is your exercise level? Occasional Information not available 04/13/2022 Mental Status None recorded. Family History Relationship Description Onset Age of this Age Resolved Age Notes LastModified by Organization Details LastModified Time Maternal Grandmother Diabetes mellitus [email or web address] Not available 2020 14:28:11 Maternal Grandmother Asthma [email or web address] Not available 01/20 14:28:25 Paternal Grandfather Hypertensive disorder [email or web address] Not available 2020 14:28:18 Medical History Condition Response Allergies (Food, seasonal, environmental ) N Other N Drug/Latex Allergies/Reactions N Blood Transfusion N Breast Cancer N Dermatologic Disorders N Lung Disease N Defects or Inherited Disease N Breast Problem N Gestational Diabetes N Hematologic disorders N Anesthesia Complications N History of STI N Deep Vein Thrombosis N Polycystic ovary syndrome Y Anxiety Disorder Y Autoimmune disease N Arthritis N Polyps N Infertility N Acid Reflux (GERD) N History of abnormal pap N Cancer N Varicosities N Stroke N Neurologic/Epilepsy N Endometriosis N High Cholesterol N Fibromyalgia N Headaches N Kidney Disease N Heart Problems N Thyroid Problems N Kidney or Bladder Problems N GI Problems N Eating Disorder N Anemia N Art (IVF or FET) N Psychiatric Illness N Ovarian Cancer N Diabetes Y Pulmonary (TB, Asthma) N Hepatitis/Liver Disease N No Past Medical History N Eczema N Urinary Tract Infection N Abuse/Domestic Violence N Asthma N Trauma/Violence N Depression/ depression Y Heart Disease N Pre-Eclampsia N Hypertension Y Osteoporosis N Thrombophilias N Gynecological History Statement/Question Response Flow Moderate Date of LMP 05/19/2024 On BCP's at Conception? N N Was last menstrual period normal N STIs/STDs N HPV Vaccine Y Duration of Flow (days) 4 Current Control Method Implant Age at First Child 27 Are cycles usually normal N Frequency of Cycle (Q days) Sexually Active? Y Menses Monthly N Age of first menstrual cycle 15 Date of Last Pap Smear 09/15/2022 Sexual Problems? N Desired Control Method None LMP Definite N Obstetrics History GPAL:G 1 P 1 0 0 1 Type Value Full Term 1 Living 1 Total 1 Past Encounters Encounter ID Performer Location Encounter Start Date Encounter Closed Date Diagnosis/Indication Diagnosis SNOMED-CT Code Diagnosis ICD10 Code Diagnosis Note [id number] Kimmie Alfred [facility] [address] [address] 01/21/2021 15:23:43 01/21/2021 17:25:38 Hypertensive disorder 23487506 I10 Gynecologi c examination 17469711 Z01.419 Z11.3 Z11.8 Take Calcium with Vitamin D 1200mg daily if not receiving in daily diet. It is strongly advised to have an annual flu shot and up can obtain at most pharmacies . If you have not had a TDap shot in the last 10 years you should obtain one as well. Discussed with patient & provided with informatio n regarding Gardisil vaccine to prevent the 4 strains for HPV that cause cervical cancer if under age 26. Encourage safe sexual practices, to use condoms and limit partners if not already in a monogamous relationsh ip. Do monthly self breast exams. Have mammogram yearly or every other year depending on family history. BRCA testing is now available for patients with strong genetic history of female cancer. If interested contact the office. Engage in daily exercise of low impact aerobic exercise 45-60 minutes 4-5 times weekly. Avoid tobacco and illicit drugs as well as using moderation with alcohol intake less than 1-2 8 oz beverages daily. This lifestyle behavior pattern will lead to less health conditions and longer life span. If BMI greater than 25 weight watchers or dietary consult advised. Patient received above instructio ns, and questions have been answered. If you have any questions please call or respond to this email. Patient was made aware of the patient portal and may obtain a paper copy of today's plan if desired. [id number] SUSANNA Valera [facility] [address] [address] 04/13/2022 12:05:47 04/13/2022 14:01:57 Polycystic ovary syndrome 044766325 E28.2 Gynecologi c examination 84989982 Z01.419 Take Calcium with Vitamin D 1200mg daily if not receiving in daily diet. It is strongly advised to have an annual flu shot and up can obtain at most pharmacies . If you have not had a TDap shot in the last 10 years you should obtain one as well. Discussed with patient & provided with informatio n regarding Gardisil vaccine to prevent the 4 strains for HPV that cause cervical cancer if under age 26. Encourage safe sexual practices, to use condoms and limit partners if not already in a monogamous relationsh ip. Do monthly self breast exams. Have mammogram yearly or every other year depending on family history. BRCA testing is now available for patients with strong genetic history of female cancer. If interested contact the office. Engage in daily exercise of low impact aerobic exercise 45-60 minutes 4-5 times weekly. Avoid tobacco and illicit drugs as well as using moderation with alcohol intake less than 1-2 8 oz beverages daily. This lifestyle behavior pattern will lead to less health conditions and longer life span. If BMI greater than 25 weight watchers or dietary consult advised. Patient received above instructio ns, and questions have been answered. If you have any questions please call or respond to this email. Patient was made aware of the patient portal and may obtain a paper copy of today's plan if desired. WWEBC - not practiced. Not trying but not preventing . Encouraged daily PNV.Hx of PCOS - takings cyclic progestin monthly to produce a withdrawal bleed.No hx of abnormal papsLast pap 01/21/2021 NILMMonoga mous relationsh ipPap every 3 years per ASCCP guidelines We discussed PCOS, exercise, nutrition. She is interested in the weight management program at [facility], she will schedule an appointmen tBP today 136/90, encouraged her to schedule an appointmen t with PCP for BP check. No symptomsRT C in 1 year for WWE or sooner if needed [id number] SUSANNA Valera [facility] [address] [address] 05/15/2022 10:35:32 05/15/2022 11:53:02 Obesity [id number] E66.9 26yo R1Qtdzzdul for initial weight management consultati onShe has struggled to loose weight on her own over the yearsShe often eats / binge eats when she feels anxiousShe eats about 3 meals a day, often will snack. Her portion sizes are large, and will often eat fast foodsNo exercise currentlyM edical hx : PCOS, HTNMedicat ions: Lisinopril - started 4 days ago by PCP, cyclic prometrium Often feels anxious and that triggers binge eating. No thoughts of harming herself or othersSA with steady male partner, BC not currently practiced We discussed the weight management program in-depth. Discussed potential weight loss medication s.-Labs ordered-St art exercising . 150 minutes of moderate-i ntense exercise per week, 2 strength sessions per week-Start tracking food on my fitness pal-Andrés evans with distance education director- We discussed anxiety in-depth. Most of her binge eating is triggered by anxiety. We agreed to treat her anxiety with Lexapro. R/B of medication discussed and accepted by patient. Rx sent.ED precaution s discussed (any SI, etc)-Bing nue to monitor BP at home and notify PCP if elevation continues. ED precaution s discussed- RTC in 2 weeks for f/u appointmen t. Will discuss labs and medication options at that time Time spent in visit is a total of 50 mins with at least 50% of visit consisting of counseling and review of plan of care. Anxiety 48799164 F41.9 Family his tory of Obesity 992221139 Z83.49 [id number] SUSANNA Valera [facility] [address] [address] 05/29/2022 12:20:31 05/29/2022 13:15:42 Obesity 993907655 E66.9 Doing very well since ERIN, has lost 10lbs with diet and exercise alone!We discussed weight management medication options in-depthDi scussed R/B of all medication sShe denies any personal or fam hx of thyroid cancerShe is interested in the new GLP1 agonist mounjaro but she would like to do her own research about it first.We discussed BC options while being on weight loss medication - she is considerin g POP or strict condom use.She also could continue with diet and exercise alone as she is having successShe will RTC in 1 week for f/u Time spent in visit is a total of 30 mins with at least 50% of visit consisting of counseling and review of plan of care. [id number] SUSANNA Valera [facility] [address],[place] [address] 06/05/2022 12:40:19 06/05/2022 14:13:06 Obesity 075359742 E66.9 Doing very well since ERIN, has lost 18lbs with diet and exercise alone!We discussed weight management medication options in-depthSh e would like to hold off on starting any weight management medication s at this timeContin ue with exercise!C ontinue following with distance education director! Doing well!RTC for f/u in 4 weeks Time spent in visit is a total of 20 mins with at least 50% of visit consisting of counseling and review of plan of care. [id number] Gabby Metcalf [facility] [address],[place] [address] 09/15/2022 14:20:34 09/15/2022 15:03:01 [id number] Kimmie Lehungselena [facility] [address],[place] [address] 09/15/2022 14:22:07 09/16/2022 12:23:16 Amenorrhea 60875592 N91.2 Gynecologi c examination 12036278 Z01.419 Z11.3 test positive 762198861 Z32.01 Risk factors addressed: Tobacco Cessation, Safe Sexual Practices, environmen radha, work hazards, travel restrictio ns, seat belt use.Eat a health well balanced diet, avoid alcohol, tobacco, and street drugs.Enga ge in daily low impact exercise, avoid temperatur e extremes, and cat, rodent, and bird feces.Avoi d travel to areas where zika virus is a concern.Of fered cf/sma/nip t. Handouts given and discussed with patient.Ch ildbirth classes recommende d.New OB sheet given.If previous , counseling .Pt verbalizes that she understand s the importance of above instructio ns.All questions were answered.P atient reminded to have annual well woman examinatio n and address preventati ve healthcare . Chronic hy pertension complicating AND/OR reason for care during 56069298 O16.9 Doing well on Labetalol. Instructed to start a baby aspirin daily. Anticipate additional labs and testing. [id number] [facility] [address] [address] 10/02/2022 10:28:30 10/02/2022 11:16:16 [id number] Gabby Metcalf [facility] [address],[place] [address] 10/21/2022 11:31:16 10/21/2022 12:11:52 screening 577927279 Z36.82 [id number] Linda Chu MD [facility] [address],[place] [address] 10/21/2022 11:34:25 10/22/2022 15:05:02 Routine care 328344600 Z34.91 Chronic hy pertension in obstetric context 9441833 O16.9 Severe obe sity complicating 4464174161 0405259 O99.211 Anxiety in 507 8954916 9109 F41.9 [id number] [facility] [address] [place] [address] 11/20/2022 16:55:40 11/20/2022 17:35:41 Routine care 530390742 Z34.92 [id number] [facility] [address] [place] [address] 11/27/2022 12:29:29 11/27/2022 14:05:15 Routine care 386718021 Z34.92 [id number] [facility] [address] [place] [address] 12/16/2022 09:32:32 12/16/2022 12:29:50 Routine care 854941285 Z34.92 [id number] [facility] [address],[place] [address] 12/16/2022 09:33:05 12/16/2022 10:49:58 screening for malformation 619805902 Z36.3 [id number] [facility] [address],[place] [address] 12/25/2022 14:37:44 12/25/2022 15:59:42 Traumatic injury during 786610545 Z3A.21 [id number] [facility] [address],[place] [address] 01/13/2023 15:27:05 01/13/2023 16:45:06 screening 269160803 Z36.2 [id number] Linda Chu MD [facility] [address],[place] [address] 01/13/2023 15:27:28 01/13/2023 17:31:26 Chronic hypertension in obstetric context 3566711 O16.9 Hypothyroidism 47180744 E03.9 Severe obe sity complicating 2246700258 7526280 O99.211 Anomaly of placenta 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 O43.109 Candidal intertrigo 2661 03392 B37.2 [id number] Trudi Leonard CNM [facility] [address],[place] [address] 02/10/2023 10:09:15 02/10/2023 10:45:04 Routine care 758265872 Z34.92 [id number] Trudi Leonard CNM [facility] [address] [place] [address] 02/24/2023 16:58:37 02/24/2023 18:22:28 Routine care 034771031 Z34.92 [id number] Denia Delgadillo [facility] [address] [place] [address] 02/24/2023 16:57:23 02/25/2023 13:51:19 Marginal insertion of umbilical cord 51783683 O43.129 O16.9 O99.213 Z3A.30 [id number] [facility] [address],[place] [address] 03/12/2023 09:08:56 03/12/2023 10:52:09 Chronic hypertension complicating AND/OR reason for care during 10067734 O16.9 O99.210 Z3A.32 [id number] [facility] [address],[place] [address] 03/12/2023 09:09:14 03/12/2023 10:51:50 Severe obesity complicating 8059781262 5446296 O99.213 [id number] [facility] [address],[place] [address] 03/12/2023 09:09:37 03/12/2023 10:56:02 Routine care 407641922 Z34.92 [id number] [facility] [address],[place] [address] 03/19/2023 09:11:41 03/19/2023 10:37:12 Chronic hypertension complicating AND/OR reason for care during 24191103 O16.9 O99.210 Z3A.33 [id number] [facility] [address],[place] [address] 03/19/2023 09:12:31 03/19/2023 09:59:29 Chronic hypertension complicating AND/OR reason for care during 30703875 O16.9 O99.210 Z3A.33 [id number] [facility] [address],[place] [address] 03/19/2023 09:12:49 03/19/2023 10:57:22 Routine care 805118702 Z34.92 [id number] [facility] [address] [place] [address] 03/26/2023 10:00:39 03/26/2023 11:35:10 Routine care 654298922 Z34.92 [id number] Lisa Joelle [facility] [address],[place] [address] 03/26/2023 10:14:52 03/26/2023 11:36:16 Chronic hypertension complicating AND/OR reason for care during 75381070 O16.9 O99.210 Z3A.33 [id number] Denia Delgadillo [facility] [address],[place] [address] 03/26/2023 10:14:52 03/26/2023 11:36:16 Chronic hypertension complicating AND/OR reason for care during 45525443 O16.9 O43.109 Z3A.34 [id number] [facility] [address],[place] [address] 04/02/2023 09:16:13 04/02/2023 09:41:40 Chronic hypertension complicating AND/OR reason for care during 58118767 O16.9 O99.210 Z3A.35 [id number] Michelle Luevano [facility] [address],[place] [address] 04/02/2023 09:16:42 04/02/2023 12:16:36 Chronic hypertension in obstetric context 4846160 O16.9 [id number] [facility] [address],[place] [address] 04/02/2023 09:17:01 04/02/2023 12:17:31 Routine care 425300573 Z34.92 [id number] Nevaeh [facility] [address],[place] [address] 04/09/2023 09:12:17 04/09/2023 09:50:34 Chronic hypertension complicating AND/OR reason for care during 67528941 O16.9 O99.210 Z3A.36 [id number] Shelbi Fitzgerald [facility] [address],[place] [address] 04/09/2023 09:12:37 04/09/2023 11:44:26 Chronic hypertension complicating AND/OR reason for care during 27722241 O16.9 O99.210 Z3A.36 [id number] MARGARETTE TOPETE MD [facility] [address],[place] [address] 04/09/2023 09:12:56 04/09/2023 11:44:02 Routine care 996870314 Z34.93 [id number] Denia Delgadillo [facility] [address],[place] [address] 04/16/2023 09:11:49 04/16/2023 10:14:25 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 She is 1 week postop from a delivery. Her incision is clean dry and intact. She has no complaints . Her bleeding is minimal. She denies any nausea, vomiting, fever, chills. She denies any chest pain or shortness of breath. Her baby is doing well. Her mood is good. [id number] Crow Dale MD [facility] [address],[place] [address] 05/05/2023 17:46:03 05/06/2023 14:14:56 Complication of obstetrical surgical wound 81408723 O90.89 27-YEAR-OL D FEMALE PRESENTS FOR OBSTETRICA L WOUND CONCERNs. She feels a mass in the subcutaneo us tissue. Is on lateral aspect of the incision. Is palpated. Is bunched tissue at the start of the fascial closure. It is the area of the anchor of the running suture closing the fascia. It is nontender. It does not appear infected. Very unlikely that it is a hernia given her lack of pain. Otherwise she is doing well. She will follow-up in 3 weeks for routine . [id number] Crow Dale MD [facility] [address],[place] [address] 05/27/2023 14:54:02 05/27/2023 15:34:31 care 482630361 Z39.2 27-year-ol d female presents for follow-up. She is breastfeed ing, she is not bleeding, she would like Nexplanon for contracept ion. Her baby is doing well. Her mood is good. She is not had sex she will return in 2-3 months for well-woman . She will return for Nexplanon 1 week. [id number] Crow Dale MD [facility] [address],[place] [address] 06/02/2023 15:55:14 06/02/2023 16:28:15 Contraception care management 222187466 Z30.9 Nexplanon inserted without complicati ons. [id number] Crow Dale MD [facility] [address],[place] [address] 07/05/2024 15:24:13 07/05/2024 16:18:33 Contraception care management 380807669 Z30.9 Patient is a 28-year-ol d female with a recent Nexplanon insertion. She had concern about movement of the Nexplanon. It is at the site where her insertion scar is. It does not appear to have moved. It is palpable. She was given reassuranc e. She will contact us with any problems. Health Concerns Section Related Observation LastModified by Organization Detai ls LastModified Time None Recorded Concern Status LastModified by Organization Details LastModified Time None Recorded Advance Directives Directive N: Payers Encounter Date Sequence Insurance Name Policy Number Policy Ball Covered Member ID Ball Member ID Guarantor Name 04/30/2023 1 [facility] [id number] Kenny Castillo [id number] [facility] 04/30/2023 1 [place] [id number]/05/2023 1 [facility] [id number] Kenny Castillo [id number] [facility] 05[facility]05/2023 1 [place] [facility] [id number] [facility] 05/27/2023 1 [facility] [id number] Kenny Castillo [id number] [facility] 05/27/2023 1 [place] [facility] [id number] [facility] 06/02/2023 1 [facility] [id number] Kenny Castillo [id number] [facility] 06/02/2023 1 [place] [facility] [id number] [facility] 07/05/2024 1 [facility] (MEDICAID HMO) [id number] [facility] [id number] [facility] Notes Date Note Type Note Provider Name and Address Organization Details Recorded Time 04/30/2023 text/html This patient is a 27-year-old female who presents for postop follow-up. She is 1 week postop from a delivery. Her incision is clean dry and intact. She has no complaints. Her bleeding is minimal. She denies any nausea, vomiting, fever, chills. She denies any chest pain or shortness of breath. Her baby is doing well. Her mood is good. Crow Dale MD [address], [place], [address], [facility] 04/30/2023 11:23:03 05/05/2023 text/html 27-YEAR-OLD FEMA LE PRESENTS FOR OBSTETRICAL WOUND CONCERNs. She feels a mass in the subcutaneous tissue. Is on lateral aspect of the incision. Is palpated. Is bunched tissue at the start of the fascial closure. It is the area of the anchor of the running suture closing the fascia. It is nontender. It does not appear infected. Very unlikely that it is a hernia given her lack of pain. Otherwise she is doing well. She will follow-up in 3 weeks for routine . Crow Dale MD [address], [place], [address], [facility] 05/05/2023 18:38:12 05/27/2023 text/html 27-year-old femray evans presents for follow-up. She is , she is not bleeding, she would like Nexplanon for contraception. Her baby is doing well. Her mood is good. She is not had sex she will return in 2-3 months for well-woman. She will return for Nexplanon 1 week. Crow Dale MD [address], [place], [address], [facility] 05/27/2023 15:33:53 06/02/2023 text/html patient presents for Nexplanon insertion Crow Dale MD [address], [place], [address], [facility] 06/02/2023 16:26:48 07/05/2024 text/html Patient is a 28-year-old female with a recent Nexplanon insertion. She had concern about movement of the Nexplanon. It is at the site where her insertion scar is. It does not appear to have moved. It is palpable. She was given reassurance. She will contact us with any problems. Crow Dale MD [address], [place], [address], [facility] 07/05/2024 16:12:36 OBGyn Episode Ob Episode Information Episode Created Date Number of Fetuses Patient Bloodtype Patient rh Status Prepregnancy Weight lbs Domestic Partner Domestic Partner Phone Father Name Store Receiving Specialist Status 10/22/19 1 A Positive 295 CLOSED Fetus Data First Name Last Name Admitted to NICU Weight (g) Sex Living Outcome Pediatric Complications Fetus ID Race Codes Race Delivery Type 2919.99 85 F true Full Term failure to descend, arrest of dilation 24552 Primary Problems Problem Notes chorionic bump - 01/27/23 945 A u/s and ov Problem Name Start Date End Date Resolution Snomed Code Not e Severe obesity complicating [id number] BMI 46 Chronic hypertension in obstetric context 1385011 Anemia 03/12/2023 MEDICATION 380827630 1 tab sl owfe BID Hypothyroidism 10/26/2022 15320366 11/23 increased to 50 levo, rpt 4-6 wks Anxiety in 645352697 54856 Subchorionic hematoma 629190876 SUBAMNIOTIC HEM 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 16794257 Seferino Calculation Initial Seferino Date Initial Exam Date Initial Exam Provider Initial Ultrasound Date Last Menstrual Period Date Ultra Sound Weeks Gestation 05/03/2023 10/21/2022 09/15/2022 7 Eighteen To Twenty Week Seferino Update Ultra Sound Date Fundal Height At Umbil Quickening Date Ultra Sound Latest Weeks Gestation Final Seferino Confirmed By Final Seferino Confirmed Date Final Seferino Date Ultra Sound Latest Days Gestation 0 [id number] 10/21/2022 05/03/20 0 Pre-kanwal Flowsheet Flowsheet Date 10/21/2022 Marinelli Score Blood Edema Fundus Height Fundus Units Glucose Ketones Leukocytes Nitrite Labor Signs Protein Cervic Dilation Cervic Effacement Cervic Station neg none none trace Type Weight in lbs Pre/Post Dialysis Refused Weight 300.613250913229 BP Diastolic BP Location Tested BP Systolic BP Type 84 147 78 142 Fetus Heart Rate Present A 170 Fetus Movement A No Comments [place] is a 27yo G1 at 12.2 for care. She has cHTN and a BMI of 46+. She is on labetalol 200 BID and will start ASA. Will do baseline PIH labs with PNL. Discussed testing, growth US, and risks associated with cHTN and MO in . She is on escitalopram for anxiety for about a year. We discussed risks and benefits and she wishes to stay on it for now, at least until the third trimester. Normal NT today. Desires NIPT. Flowsheet Date 11/20/2022 Marinelli Score Blood Edema Fundus Height Fundus Units Glucose Ketones Leukocytes Nitrite Labor Signs Protein Cervic Dilation Cervic Effacement Cervic Station neg none none trace Type Weight in lbs Pre/Post Dialysis Refused Weight 312.265106591256 BP Diastolic BP Location Tested BP Systolic BP Type 70 136 Fetus Heart Rate Present Fetus Movement A Yes Comments patient states that having s ome leg pain, nausea and vomiting. discussed precautions FHR by US, ok for magnesium for leg cramps. precautions reviewed anatomy in 4 weeks Flowsheet Date 11/27/2022 Marinelli Score Blood Edema Fundus Height Fundus Units Glucose Ketones Leukocytes Nitrite Labor Signs Protein Cervic Dilation Cervic Effacement Cervic Station neg none none trace Type Weight in lbs Pre/Post Dialysis Refused Weight 311.053227698434 BP Diastolic BP Location Tested BP Systolic BP Type 60 140 Fetus Heart Rate Present A 144 Fetus Movement Comments patient is here for follow u p blood pressure check. has not been feeling well at school, dizzy and falling asleep in class, wants 2 week leave of absense note written for school, discussed hydration, small meals with protein, check bp over the weekend, precautions reviewed f/u anatomy as scheduled Flowsheet Date 12/16/2022 Marinelli Score Blood Edema Fundus Height Fundus Units Glucose Ketones Leukocytes Nitrite Labor Signs Protein Cervic Dilation Cervic Effacement Cervic Station Type Weight in lbs Pre/Post Dialysis Refused BP Diastolic BP Location Tested BP Systolic BP Type Fetus Heart Rate Present Fetus Movement Comments Flowsheet Date 12/16/2022 Marinelli Score Blood Edema Fundus Height Fundus Units Glucose Ketones Leukocytes Nitrite Labor Signs Protein Cervic Dilation Cervic Effacement Cervic Station neg none none trace Type Weight in lbs Pre/Post Dialysis Refused Weight 320.245456022893 BP Diastolic BP Location Tested BP Systolic BP Type 80 132 Fetus Heart Rate Present Fetus Movement A Yes Comments patient states that eye is t witching, nausea and vomiting. anatomy incomplete, MCI, circumvallate , reviewed , reviewed precautions, education done, planning bard/diedrikson for peds, planning classes at [employer] Flowsheet Date 12/25/2022 Marinelli Score Blood Edema Fundus Height Fundus Units Glucose Ketones Leukocytes Nitrite Labor Signs Protein Cervic Dilation Cervic Effacement Cervic Station Type Weight in lbs Pre/Post Dialysis Refused BP Diastolic BP Location Tested BP Systolic BP Type Fetus Heart Rate Present Fetus Movement Comments Flowsheet Date 01/13/2023 Marinelli Score Blood Edema Fundus Height Fundus Units Glucose Ketones Leukocytes Nitrite Labor Signs Protein Cervic Dilation Cervic Effacement Cervic Station Type Weight in lbs Pre/Post Dialysis Refused BP Diastolic BP Location Tested BP Systolic BP Type Fetus Heart Rate Present Fetus Movement Comments Flowsheet Date 01/13/2023 Marinelli Score Blood Edema Fundus Height Fundus Units Glucose Ketones Leukocytes Nitrite Labor Signs Protein Cervic Dilation Cervic Effacement Cervic Station none none trace Type Weight in lbs Pre/Post Dialysis Refused Weight 323.640913197841 BP Diastolic BP Location Tested BP Systolic BP Type 77 146 70 142 Fetus Heart Rate Present A 135 Fetus Movement A Yes Comments Doing fine except for painfu l axillary intertrigo- lotrimin cream and will send diflucan. Repeat TSH today. US today anatomy now complete and wnl, 47%. Placenta MCI and circumvallate but also today possible subamniotic hemorrhage vs venous anomaly/finnegan. Will have MFM take a look. testing at 32w for cHTN, growth US until then. GCT next visit. Flowsheet Date 02/10/2023 Marinelli Score Blood Edema Fundus Height Fundus Units Glucose Ketones Leukocytes Nitrite Labor Signs Protein Cervic Dilation Cervic Effacement Cervic Station neg none none trace Type Weight in lbs Pre/Post Dialysis Refused Weight 333.550322436286 BP Diastolic BP Location Tested BP Systolic BP Type 74 123 Fetus Heart Rate Present Fetus Movement A Yes Comments patient is having some nause a and vomiting. ok for zofran, testing scheduled, gct and tsh today f/u 2 weeks. precautions reviewed Flowsheet Date 02/24/2023 Marinelli Score Blood Edema Fundus Height Fundus Units Glucose Ketones Leukocytes Nitrite Labor Signs Protein Cervic Dilation Cervic Effacement Cervic Station Type Weight in lbs Pre/Post Dialysis Refused BP Diastolic BP Location Tested BP Systolic BP Type Fetus Heart Rate Present Fetus Movement Comments Flowsheet Date 02/24/2023 Marinelli Score Blood Edema Fundus Height Fundus Units Glucose Ketones Leukocytes Nitrite Labor Signs Protein Cervic Dilation Cervic Effacement Cervic Station neg none none trace Type Weight in lbs Pre/Post Dialysis Refused Weight 329.360504452988 BP Diastolic BP Location Tested BP Systolic BP Type 75 129 Fetus Heart Rate Present Fetus Movement A Yes Comments patient is having some leg c ramps, trouble sleeping, nausea and vomiting. Patient did have a rash on her face yesterday. rash resolved on its own, ok for magnesium at hs to help with leg cramps, unisom to sleep, check TSH today, refill zofran and lexapro, precautions reviewed testing scheduled Flowsheet Date 03/12/2023 Marinelli Score Blood Edema Fundus Height Fundus Units Glucose Ketones Leukocytes Nitrite Labor Signs Protein Cervic Dilation Cervic Effacement Cervic Station Type Weight in lbs Pre/Post Dialysis Refused BP Diastolic BP Location Tested BP Systolic BP Type Fetus Heart Rate Present Fetus Movement Comments Flowsheet Date 03/12/2023 Marinelli Score Blood Edema Fundus Height Fundus Units Glucose Ketones Leukocytes Nitrite Labor Signs Protein Cervic Dilation Cervic Effacement Cervic Station Type Weight in lbs Pre/Post Dialysis Refused BP Diastolic BP Location Tested BP Systolic BP Type Fetus Heart Rate Present Fetus Movement Comments Flowsheet Date 03/12/2023 Marinelli Score Blood Edema Fundus Height Fundus Units Glucose Ketones Leukocytes Nitrite Labor Signs Protein Cervic Dilation Cervic Effacement Cervic Station neg none none trace Type Weight in lbs Pre/Post Dialysis Refused Weight 328.48567529146 BP Diastolic BP Location Tested BP Systolic BP Type 75 113 Fetus Heart Rate Present Fetus Movement A Yes Comments patient is having issues wit h blood pressure, pain, nausea and vomiting. was in LD pressures wnl, labs ok, discussed staring NIMISHA at school. discussed spinning babies, delivery around 38 weeks, pih precautions, call for preadmit weekly f/u Flowsheet Date 03/19/2023 Marinelli Score Blood Edema Fundus Height Fundus Units Glucose Ketones Leukocytes Nitrite Labor Signs Protein Cervic Dilation Cervic Effacement Cervic Station Type Weight in lbs Pre/Post Dialysis Refused BP Diastolic BP Location Tested BP Systolic BP Type Fetus Heart Rate Present Fetus Movement Comments Flowsheet Date 03/19/2023 Marinelli Score Blood Edema Fundus Height Fundus Units Glucose Ketones Leukocytes Nitrite Labor Signs Protein Cervic Dilation Cervic Effacement Cervic Station Type Weight in lbs Pre/Post Dialysis Refused BP Diastolic BP Location Tested BP Systolic BP Type Fetus Heart Rate Present Fetus Movement Comments Flowsheet Date 03/19/2023 Marinelli Score Blood Edema Fundus Height Fundus Units Glucose Ketones Leukocytes Nitrite Labor Signs Protein Cervic Dilation Cervic Effacement Cervic Station neg none none trace Type Weight in lbs Pre/Post Dialysis Refused Weight 334.586819065242 BP Diastolic BP Location Tested BP Systolic BP Type 77 122 Fetus Heart Rate Present Fetus Movement A Yes Comments patient is having some nause a and vomiting. bpp 8/8 footling breech, cont exercises, discussed section, precautions reviewedbaby shower tomorrow! Flowsheet Date 03/26/2023 Marinelli Score Blood Edema Fundus Height Fundus Units Glucose Ketones Leukocytes Nitrite Labor Signs Protein Cervic Dilation Cervic Effacement Cervic Station Type Weight in lbs Pre/Post Dialysis Refused BP Diastolic BP Location Tested BP Systolic BP Type Fetus Heart Rate Present Fetus Movement Comments Flowsheet Date 03/26/2023 Marinelli Score Blood Edema Fundus Height Fundus Units Glucose Ketones Leukocytes Nitrite Labor Signs Protein Cervic Dilation Cervic Effacement Cervic Station Type Weight in lbs Pre/Post Dialysis Refused BP Diastolic BP Location Tested BP Systolic BP Type Fetus Heart Rate Present Fetus Movement Comments Flowsheet Date 03/26/2023 Marinelli Score Blood Edema Fundus Height Fundus Units Glucose Ketones Leukocytes Nitrite Labor Signs Protein Cervic Dilation Cervic Effacement Cervic Station neg none none trace Type Weight in lbs Pre/Post Dialysis Refused Weight 328.40687320748 BP Diastolic BP Location Tested BP Systolic BP Type 74 124 Fetus Heart Rate Present Fetus Movement A Yes Comments patient is having some disch arge, back pain, pressure, nausea and vomiting. bpp 8/8, rec birthing ball, hip circles, call for preadmit efw 58% discussed IOL around 38 weeks for CHTN Flowsheet Date 04/02/2023 Marinelli Score Blood Edema Fundus Height Fundus Units Glucose Ketones Leukocytes Nitrite Labor Signs Protein Cervic Dilation Cervic Effacement Cervic Station Type Weight in lbs Pre/Post Dialysis Refused BP Diastolic BP Location Tested BP Systolic BP Type Fetus Heart Rate Present Fetus Movement Comments Flowsheet Date 04/02/2023 Marinelli Score Blood Edema Fundus Height Fundus Units Glucose Ketones Leukocytes Nitrite Labor Signs Protein Cervic Dilation Cervic Effacement Cervic Station Type Weight in lbs Pre/Post Dialysis Refused BP Diastolic BP Location Tested BP Systolic BP Type Fetus Heart Rate Present Fetus Movement Comments Flowsheet Date 04/02/2023 Marinelli Score Blood Edema Fundus Height Fundus Units Glucose Ketones Leukocytes Nitrite Labor Signs Protein Cervic Dilation Cervic Effacement Cervic Station neg none none trace Type Weight in lbs Pre/Post Dialysis Refused Weight 330.296655751367 BP Diastolic BP Location Tested BP Systolic BP Type 79 132 Fetus Heart Rate Present Fetus Movement A Yes Comments patient is having some nause a and vomiting. IOL scheduled 04/13 cervidil at [facility]sbpp 8, preadmit done, doing well, education and precautions reviewed f/u one week, gbs collected Flowsheet Date 04/09/2023 Marinelli Score Blood Edema Fundus Height Fundus Units Glucose Ketones Leukocytes Nitrite Labor Signs Protein Cervic Dilation Cervic Effacement Cervic Station Type Weight in lbs Pre/Post Dialysis Refused BP Diastolic BP Location Tested BP Systolic BP Type Fetus Heart Rate Present Fetus Movement Comments Flowsheet Date 04/09/2023 Marinelli Score Blood Edema Fundus Height Fundus Units Glucose Ketones Leukocytes Nitrite Labor Signs Protein Cervic Dilation Cervic Effacement Cervic Station Type Weight in lbs Pre/Post Dialysis Refused BP Diastolic BP Location Tested BP Systolic BP Type Fetus Heart Rate Present Fetus Movement Comments Flowsheet Date 04/09/2023 Marinelli Score Blood Edema Fundus Height Fundus Units Glucose Ketones Leukocytes Nitrite Labor Signs Protein Cervic Dilation Cervic Effacement Cervic Station neg none none trace 0cm 50% -2 Type Weight in lbs Pre/Post Dialysis Refused Weight 334.68486179660 BP Diastolic BP Location Tested BP Systolic BP Type 75 117 Fetus Heart Rate Present Fetus Movement A Yes Comments patient states that having s ome pressure, nausea and vomiting. Denies preeclampsia sx. BPP 8, GBS neg Flowsheet Date 04/16/2023 Marinelli Score Blood Edema Fundus Height Fundus Units Glucose Ketones Leukocytes Nitrite Labor Signs Protein Cervic Dilation Cervic Effacement Cervic Station Type Weight in lbs Pre/Post Dialysis Refused BP Diastolic BP Location Tested BP Systolic BP Type Fetus Heart Rate Present Fetus Movement Comments Flowsheet Date 04/16/2023 Marinelli Score Blood Edema Fundus Height Fundus Units Glucose Ketones Leukocytes Nitrite Labor Signs Protein Cervic Dilation Cervic Effacement Cervic Station Type Weight in lbs Pre/Post Dialysis Refused BP Diastolic BP Location Tested BP Systolic BP Type Fetus Heart Rate Present Fetus Movement Comments Flowsheet Date 04/16/2023 Marinelli Score Blood Edema Fundus Height Fundus Units Glucose Ketones Leukocytes Nitrite Labor Signs Protein Cervic Dilation Cervic Effacement Cervic Station neg none none trace Type Weight in lbs Pre/Post Dialysis Refused Weight 332.945170002252 BP Diastolic BP Location Tested BP Systolic BP Type 83 137 Fetus Heart Rate Present Fetus Movement A Yes Comments patient is having pressure a nd discharge, nausea and vomiting. 0/50/-2, IOL next week, +FM EFW 56%, bpp 8/8 Flowsheet Date 04/30/2023 Marinelli Score Blood Edema Fundus Height Fundus Units Glucose Ketones Leukocytes Nitrite Labor Signs Protein Cervic Dilation Cervic Effacement Cervic Station Type Weight in lbs Pre/Post Dialysis Refused Weight 324.928088973975 BP Diastolic BP Location Tested BP Systolic BP Type 76 R arm 126 sitting Fetus Heart Rate Present Fetus Movement Comments Menstrual History Last Menstrual Date Menses Monthly On Bcp Conception Prior Menses Frequency Hcg Plus Date Menarche Onset Age Genetic Screening And Infection History Question Response Note Mental Retardation/Autism false Patient's Age Will Be 35 Years Or Older At Estim ated Date of Delivery false Thalassemia (Togolese, Estonian, Mediterranean, Or Background): MCV < 80 false Neural Tube Defect (Meningomyelocele, Spina Bifi da, Or Anencephaly) false Congenital Heart Defect false Down Syndrome false Brayden-Sachs (eg, Congregational, Cajun, Dutch-[place]) f alse Aleena Disease false Sickle Cell Disease Or Trait () false Hemophilia Or Other Blood Disorders false Muscular Dystrophy false Cystic Fibrosis false [place]'s [place] false Intellectual Disability/Autism false If Yes, Was Person Tested For Fragile X? false Other Inherited Genetic Or Chromosomal Disorder false Maternal Metabolic Disorder (eg, Type 1 Diabetes , PKU) false Patient Or Baby's Father Had A Child With Defects Not Listed Above false Recurrent Loss, Or A Stillbirth false Medications (including Suppl ements, Vitamins, Herbs, OTC Drugs), Illicit/Recreational Drugs, Alcohol true If Yes, Agent(s) And Strength/Dosage false Any Other Genetic History false Live With Someone With TB Or Exposed To TB false Patient Or Partner Has History Of Genital Herpes false Rash Or Viral Illness Since Last Menstrual Perio d false History Of STD, Gonorrhea, Chlamydia, HPV, Syphi lis false Other Infection History false History of HIV false History of Hepatitis false Prior GBS-infected child false Hemoglobinopathy Or Carrier false Other Structural Defect false Recent Travel History Outside of Country false Delivery Information Delivery Date Delivery Type Labor Anesthesia Weeks Gestation Incision Type Labor Labor Length Hrs Delivered By Post Complications Tubal Sterilization Discharge Date Comments 3 None Regional-Ep idural 38.4 false [place] MD Anemia, Anxiety in , Chronic hypertens ion in obstetric context, Hypothyro idism, Marginal insertion of umbilical cord, Placenta circumval ronaldo, Severe obesity complicat ing , Subchorio pam hematoma Discharge Information Feeding Method Contraceptive Method Maternal HG B and HCT Levels
--- OUTSIDE RECORDS SUMMARY | 2024-08-24 22:16 | XMS_ITS | Continuity of Care Document ---
Author Name [facility] Organization [facility] Care Team Providers Care Roping Tender Name Role Phone [facility] Unavailable Unavailable Social History Combined list of available smoking, tobacco, and other social history from [facility] Defense and [facility] facilities. Social History Type Response Date Comment Sourc e This section is an empty social history section. [facility]
--- OUTSIDE RECORDS SUMMARY | 2024-08-24 22:16 | XMS_ITS | Data Portability ---
Author Organization [facility] blog[employer], Main Office Address [address] [place] [address] Assessment Encounter Date Assessment Date Assessment LastModified by Organization Details LastModified Time 05/12/2024 05/12/2024 Flu shot: recommended at pharmacy COVID vaccines: declines Tdap: 2022 [email or web address] Not available 05/12/2024 14:46:52 Plan of Treatment Reminders Order Date Submit Date Provider Last Modified By Organization Details Last Modified Time Details Appointments Follow Up 15 2024 01:00P WILTON Bauman Not available Not available Not available Lab CMP, serum or plasma 2023 [facility] (Lab), [address] [place], [address], 05/12/2024 20:46:16 CBC w/ auto diff [address] (Lab), [address] [place], [address], 05/19/2024 08:02:26 lipid panel, serum [address] (Lab), [address] [place], [address], 05/19/2024 08:02:26 glycohemo globin, total, blood [address] (Lab), [address] [place], [address], 05/19/2024 08:02:26 TSH, serum or plasma [address] (Lab), [address] [place], [address], 05/19/2024 08:02:26 vitamin D, 25-hydrox y, total, serum [address] (Lab), [address] [place], [address], 05/19/2024 08:02:27 iron + total iron-bind ing capacity (TIBC), serum [address] (Lab), [address] [place], [address], 05/19/2024 08:02:27 CBC w/ auto diff 2023 024 [facility] (Lab), [address] [place], [address], 06/13/2024 20:48:03 iron + total iron-bind ing capacity (TIBC), serum [address] (Lab), [address] [place], [address], 06/20/2024 08:30:24 vitamin B12 + folate, serum or blood [address] (Lab), [address] [place], [address], 06/20/2024 08:30:24 Referral None recorded. Procedures None recorded. Surgeries None recorded. Imaging US, thyroid - Please call pt to schedule 2024 025 [facility] (One Call Scheduling), [address] [place], [address], 08/23/2024 09:32:41 Medication Orders escitalop tasha 20 mg tablet 10/11/ 2024 10/11/2 024 [facility] #54527, [address], [place], [place], [id number], 05/12/2024 14:42:15 Trulicity 0.75 mg/0.5 mL subcutane ous pen injector 2023 024 [facility] #58774, [address], [place], [place], [id number], 08/18/2024 15:00:53 lisinopri l 40 mg tablet 2023 024 [facility] #58676, [address], [place], [place], [id number], 06/13/2024 15:56:56 Trulicity 3 mg/0.5 mL subcutane ous pen injector 2024 025 [facility] #38452, [address], [place], [place], [id number], 08/18/2024 15:19:16 lisinopri l 20 mg tablet 2024 025 [facility] #49595, [address], [place], [place], [id number], 08/18/2024 15:19:17 Patient TargetsNo targets recorded. Patient InstructionsNo instructions recorded. Reason for Referral None Reported. Results Created Date Observation Date Name Description Value Unit Range Abnormal Flag Note LastModifiedBy Organization Detail LastModifiedTime 08/13/1908/14/2021 HEMOG LOBIN A1C hemoglobin A1C 5.4 %_of_ total _HGB <5.7 normal Not Available [email or web address] [address] [place], [address], 08/14/2021 09:57:12 08/13/1908/14/2021 VITAM IN D,25- OH,TO LILLY,I A vitamin D,25-oh,tota l,ia 17 NG/mL 30-100 low Vitam in D Statu s 25-OH Vitam in D: Defic iency : <20 ng/mL Insuf ficie ncy: 20 - 29 ng/mL Optim al: > or = 30 ng/mL For 25-OH Vitam in D testi ng on patie nts on D2-bishop pplem entat ion and patie nts for whom quant itati on of D2 and D3 fract ions is requi red, the [facility] eD(TM ) 25-OH VIT D, (D2,D 3), LC/MS /MS is recom shane d: order code 03802 (jamil ents >2yrs ). See Note 1 Note 1 For addit ional infor renae kelly refer to http: //[facility] corey mendez.Feroz stDia gnost ics.c om/fa q/FAQ 199 (This link is being provi ded for infor makayla vega/ promise roy purpo ses only. ) Not Available [email or web address] [facility] [address] [place], [address], 08/14/2021 09:57:12 08/13/19 22 08/14/2021 T4, FREE T4, free 1.2 NG/dL 0.8-1. 8 normal Not Available [email or web address] [address] [place], [address], 08/14/2021 09:57:11 08/13/19 22 08/14/2021 TSH W/REF ANAMIKA TO FT4 TSH w/reflex to FT4 8.18 mIU/L high Refer ence Range > or = 20 Years 0.40- 4.50 Pregn stormy Range s First trime ster 0.26- 2.66 Secon d trime ster 0.55- 2.73 Third trime ster 0.43- 2.91 Not Available [email or web address] [address] [place], [address], 08/14/2021 09:57:11 08/13/19 22 08/14/2021 CBC (INCL UDES DIFF/ PLT) white blood cell count 7.0 thous and/u L 3.8-10 .8 normal Not Available [address], [address], 08/14/2021 09:57:10 08/13/19 22 08/14/2021 CBC (INCL UDES DIFF/ PLT) red blood cell count 5.36 peggy on/uL 3.80-5 .10 high Not Available [address], [address], 08/14/2021 09:57:10 08/13/1908/14/2021 CBC (INCL UDES DIFF/ PLT) hemoglobin 12.0 g/dL 11.7-1 5.5 normal Not Available [address], [address], 08/14/2021 09:57:10 08/13/1908/14/2021 CBC (INCL UDES DIFF/ PLT) hematocrit 39.2 % 35.0-4 5.0 normal Not Available [address], [address], 08/14/2021 09:57:10 08/13/19 22 08/14/2021 CBC (INCL UDES DIFF/ PLT) MCV 73.1 fL 80.0-1 00.0 low Not Available [address], [address], 08/14/2021 09:57:10 08/13/19 22 08/14/2021 CBC (INCL UDES DIFF/ PLT) MCH 22.4 pg 27.0-3 3.0 low Not Available [address], [address], 08/14/2021 09:57:10 08/13/1908/14/2021 CBC (INCL UDES DIFF/ PLT) MCHC 30.6 g/dL 32.0-3 6.0 low Not Available [address], [address], 08/14/2021 09:57:10 08/13/19 22 08/14/2021 CBC (INCL UDES DIFF/ PLT) RDW 15.7 % 11.0-1 5.0 high Not Available [address], [address], 08/14/2021 09:57:10 08/13/19 22 08/14/2021 CBC (INCL UDES DIFF/ PLT) platelet count 384 thous and/u L 140-40 0 normal Not Available [address], [address], 08/14/2021 09:57:10 08/13/1908/14/2021 CBC (INCL UDES DIFF/ PLT) MPV 9.6 fL 7.5-12 .5 normal Not Available [address], [address], 08/14/2021 09:57:10 08/13/19 22 08/14/2021 CBC (INCL UDES DIFF/ PLT) absolute neutrophils 2870 cells /uL 1500-7 800 normal Not Available [address], [address], 08/14/2021 09:57:10 08/13/19 22 08/14/2021 CBC (INCL UDES DIFF/ PLT) absolute lymphocytes 3318 cells /uL 850-39 00 normal Not Available [address], [address], 08/14/2021 09:57:10 08/13/19 22 08/14/2021 CBC (INCL UDES DIFF/ PLT) absolute monocytes 686 cells /uL 200-95 0 normal Not Available [address], [address], 08/14/2021 09:57:10 08/13/19 22 08/14/2021 CBC (INCL UDES DIFF/ PLT) absolute eosinophils 98 cells /uL 15-500 normal Not Available [address], [address], 08/14/2021 09:57:10 08/13/19 22 08/14/2021 CBC (INCL UDES DIFF/ PLT) absolute basophils 28 cells /uL 0-200 normal Not Available [facility] [address], [address], 08/14/2021 09:57:10 08/13/19 22 08/14/2021 CBC (INCL UDES DIFF/ PLT) neutrophils 41 % normal Not Available [facility] [address], [address], 08/14/2021 09:57:10 08/13/19 22 08/14/2021 CBC (INCL UDES DIFF/ PLT) lymphocytes 47.4 % normal Not Available [facility] [address], [address], 08/14/2021 09:57:10 08/13/19 22 08/14/2021 CBC (INCL UDES DIFF/ PLT) monocytes 9.8 % normal Not Available [facility] [address], [address], 08/14/2021 09:57:10 08/13/19 22 08/14/2021 CBC (INCL UDES DIFF/ PLT) eosinophils 1.4 % normal Not Available [facility] [address], [address], 08/14/2021 09:57:10 08/13/19 22 08/14/2021 CBC (INCL UDES DIFF/ PLT) basophils 0.4 % normal Not Available [facility] [address], [address], 08/14/2021 09:57:10 08/13/19 22 08/14/2021 COMPR EHENS MISAEL METAB OLIC PANEL glucose 81 mg/dL 65-99 normal Fasti ng refer ence inter lydia Not Available [address], [address], 08/14/2021 09:57:09 08/13/19 22 08/14/2021 COMPR EHENS MISAEL METAB OLIC PANEL urea nitrogen (BUN) 10 mg/dL 7-25 normal Not Available [address], [address], 08/14/2021 09:57:09 08/13/19 22 08/14/2021 COMPR EHENS MISAEL METAB OLIC PANEL creatinine 0.59 mg/dL 0.50-1 .10 normal Not Available [address], [address], 08/14/2021 09:57:09 08/13/19 22 08/14/2021 COMPR EHENS MISAEL METAB OLIC PANEL eGFR non-afr. liberian 129 mL/mi n/1.7 3m2 > or = 60 normal Not Available [address], [address], 08/14/2021 09:57:09 08/13/19 22 08/14/2021 COMPR EHENS MISAEL METAB OLIC PANEL eGFR 150 mL/mi n/1.7 3m2 > or = 60 normal Not Available [address], [address], 08/14/2021 09:57:09 08/13/19 22 08/14/2021 COMPR EHENS MISAEL METAB OLIC PANEL BUN/creatini ne ratio not applic able (calc ) 6-22 Not Available [address], [address], 08/14/2021 09:57:09 08/13/19 22 08/14/2021 COMPR EHENS MISAEL METAB OLIC PANEL sodium 139 mmol/ L 135-14 6 normal Not Available [address], [address], 08/14/2021 09:57:09 08/13/19 22 08/14/2021 COMPR EHENS MISAEL METAB OLIC PANEL potassium 4.5 mmol/ L 3.5-5. 3 normal Not Available [address], [address], 08/14/2021 09:57:09 08/13/19 22 08/14/2021 COMPR EHENS MISAEL METAB OLIC PANEL chloride 103 mmol/ L 98-110 normal Not Available [address], [address], 08/14/2021 09:57:09 08/13/1908/14/2021 COMPR EHENS MISAEL METAB OLIC PANEL carbon dioxide 27 mmol/ L 20-32 normal Not Available [address], [address], 08/14/2021 09:57:09 08/13/19 22 08/14/2021 COMPR EHENS MISAEL METAB OLIC PANEL calcium 9.3 mg/dL 8.6-10 .2 normal Not Available [address], [address], 08/14/2021 09:57:09 08/13/1908/14/2021 COMPR EHENS MISAEL METAB OLIC PANEL protein, total 7.5 g/dL 6.1-8. 1 normal Not Available [address], [address], 08/14/2021 09:57:09 08/13/19 22 08/14/2021 COMPR EHENS MISAEL METAB OLIC PANEL albumin 4.5 g/dL 3.6-5. 1 normal Not Available [address], [address], 08/14/2021 09:57:09 08/13/19 22 08/14/2021 COMPR EHENS MISAEL METAB OLIC PANEL globulin 3.0 g/dL_ (calc ) 1.9-3. 7 normal Not Available [address], [address], 08/14/2021 09:57:09 08/13/19 22 08/14/2021 COMPR EHENS MISAEL METAB OLIC PANEL albumin/glob ulin ratio 1.5 (calc ) 1.0-2. 5 normal Not Available [address], [address], 08/14/2021 09:57:09 08/13/19 22 08/14/2021 COMPR EHENS MISAEL METAB OLIC PANEL bilirubin, total 0.7 mg/dL 0.2-1. 2 normal Not Available [address], [address], 08/14/2021 09:57:09 08/13/19 22 08/14/2021 COMPR EHENS MISAEL METAB OLIC PANEL alkaline phosphatase 66 U/L 31-125 normal Not Available [address], [address], 08/14/2021 09:57:09 08/13/19 22 08/14/2021 COMPR EHENS MISAEL METAB OLIC PANEL AST 16 U/L 10-30 normal Not Available [address], [address], 08/14/2021 09:57:09 08/13/19 22 08/14/2021 COMPR EHENS MISAEL METAB OLIC PANEL ALT 15 U/L 6-29 normal Not Available [address], [address], 08/14/2021 09:57:09 08/13/19 22 08/14/2021 LIPID PANEL , STAND KORI non HDL cholesterol 141 mg/dL _(rama c) <130 high For patie nts with diabe kristine plus 1 major ASCVD risk facto r, treat ing to a non-H DL-C goal of <100 mg/dL (LDL- C of <70 mg/dL ) is jake alejandro optio n. Not Available [address] [address] [place], [address], 08/14/2021 09:57:09 08/13/19 22 08/14/2021 LIPID PANEL , STAND KORI cholesterol, total 173 mg/dL <200 normal Not Available [facility] [address] [address] [place], [address], 08/14/2021 09:57:09 08/13/19 22 08/14/2021 LIPID PANEL , STAND KORI HDL cholesterol 32 mg/dL > or = 50 low Not Available [address], [address], 08/14/2021 09:57:09 08/13/19 22 08/14/2021 LIPID PANEL , STAND KORI triglyceride s 168 mg/dL <150 high Not Available [facility] [address], [address], 08/14/2021 09:57:09 08/13/1908/14/2021 LIPID PANEL , STAND KORI LDL-choleste rol 113 mg/dL _(rama c) high Refer ence range : <100 Margot able range <100 mg/dL for prima ry preve ntion ; <70 mg/dL for patie nts with CHD or diabe tic patie nts with > or = 2 CHD risk facto rs. LDL-C is now calcu lated using the Parul n-Hop kins nenita mendez, which is a valid ated novel jadao d anish carrington r accur acy than the Fried akshat equat ion in the estim ation of LDL-C . Parul mendez SS et al. HARSHAL. 2013; 310(1 9): 2061- 2068 (http ://ed ucati on.Qu estDi agnos LabourNet. com/f aq/FA Q164) Not Available [address], [address], 08/14/2021 09:57:09 08/13/19 22 08/14/2021 LIPID PANEL , STAND KORI chol/HDLC ratio 5.4 (calc ) <5.0 high Not Available [address], [address], 08/14/2021 09:57:09 08/13/19 22 08/14/2021 IRON, TIBC AND KYLE TIN PANEL iron, total 74 mcg/d L 40-190 normal Not Available [address], [address], 08/14/2021 09:57:08 08/13/1908/14/2021 IRON, TIBC AND KYLE TIN PANEL iron binding capacity 443 mcg/d L_(ca lc) 250-45 0 normal Not Available [address], [address], 08/14/2021 09:57:08 08/13/19 22 08/14/2021 IRON, TIBC AND KYLE TIN PANEL % saturation 17 %_(ca lc) 16-45 normal Not Available [address], [address], 08/14/2021 09:57:08 08/13/1908/14/2021 IRON, TIBC AND KYLE TIN PANEL ferritin 16 NG/mL 16-154 normal Not Available [address], [address], 08/14/2021 09:57:08 10/12/19 22 10/12/2021 TSH TSH 4.06 mIU/L normal Refer ence Range > or = 20 Years 0.40- 4.50 Pregn stormy Range s First trime ster 0.26- 2.66 Secon d trime ster 0.55- 2.73 Third trime ster 0.43- 2.91 Not Available [address], [address], 10/12/2021 12:35:36 10/12/19 22 10/12/2021 T4, FREE T4, free 1.0 NG/dL 0.8-1. 8 normal Not Available [address], [address], 10/12/2021 12:35:35 10/12/19 22 10/12/2021 LIPID PANEL , STAND KORI cholesterol, total 179 mg/dL <200 normal Not Available [address], [address], 10/12/2021 12:35:35 10/12/19 22 10/12/2021 LIPID PANEL , STAND KORI HDL cholesterol 35 mg/dL > or = 50 low Not Available [address], [address], 10/12/2021 12:35:35 10/12/19 22 10/12/2021 LIPID PANEL , STAND KORI triglyceride s 127 mg/dL <150 normal Not Available [address], [address], 10/12/2021 12:35:35 10/12/19 22 10/12/2021 LIPID PANEL , STAND KORI LDL-choleste rol 120 mg/dL _(rama c) high Refer ence range : <100 Margot able range <100 mg/dL for prima ry preve ntion ; <70 mg/dL for patie nts with CHD or diabe tic patie nts with > or = 2 CHD risk facto rs. LDL-C is now calcu lated using the Parul n-Hop kins calcu juan n, which is a valid ated novel metho d anish carrington r accur acy than the Fried akshat equat ion in the estim ation of LDL-C . Parul mendez SS et al. HARSHAL. 2013; 310(1 9): 2061- 2068 (http ://ed ucati on.LiveMinutes shereenEquaMetrics. Pinchd/f aq/FA Q164) Not Available [facility] [address], [place], [address], 10/12/2021 12:35:35 10/12/19 22 10/12/2021 LIPID PANEL , STAND KORI chol/HDLC ratio 5.1 (calc ) <5.0 high Not Available [facility] [address], [place], [address], 10/12/2021 12:35:35 10/12/19 22 10/12/2021 LIPID PANEL , STAND KORI non HDL cholesterol 144 mg/dL _(rama c) <130 high For patie nts with diabe kristine plus 1 major ASCVD risk facto r, treat ing to a non-H DL-C goal of <100 mg/dL (LDL- C of <70 mg/dL ) is consi dered a olenaa david c optio n. Not Available [facility] [address], [place], [address], 10/12/2021 12:35:35 03/10/20 23 03/10/2023 US, obste tric No observ ation record ed. [email or web address] [facility] [address], [place], [address], 03/11/2023 07:37:18 08/23/19 25 08/23/2024 US, thyro id No observ ation record ed. [facility] [address] [facility], [place], [address], 08/23/2024 14:40:37 Result Notes None recorded. Problems Name Problem SNOMED Code Status Onset Date Resolution Date Notes Provider Name and Address Organization Details Recorded Time Morbid obesity 883708245 Active 2021 Not Available [facility] 20:41:57 Mixed hyperlipidemi a 466840905 Active 10/20/ 2022 Not Available [facility] 3 20:41:57 Adult health examination Active 2021 Not Available [facility] 3 20:41:57 Thyroid stimulating hormone level above reference range 532452075 Active 2021 Not Available [facility] 3 20:41:57 Vitamin D deficiency 94736961 Active 2021 Not Available [facility] 3 20:41:57 Obese 885401006 Active 2021 Not Available [facility] 3 20:41:58 Hyperlipidemi a 28561294 Active 2021 Not Available [facility] 3 20:41:58 Essential hypertension 08465808 Active 2021 Not Available [facility] 3 20:41:58 Iron deficiency anemia 66971621 Active 2021 Not Available [facility] 3 20:41:58 Anxiety 19578223 Active 2023 WILTON Ramsay [address], [address], [place], [address] , [employer] [facility] [employer] [facility] 4 14:31:45 Fatigue 87867369 Active 2023 WILTON Ramsay [address], [address], [place], [address] , [employer] [facility] [employer] [facility] 4 14:41:50 Prediabetes 295168679 Active 2023 WILTON Ramsay [address], [address], [place], [address] , [employer] [facility] 4 09:28:23 Anemia 785714460 Active 2023 WILTON Ramsay [address], [address], [place], [address] , [employer] [facility] 4 15:44:11 Leukocytosis 471207624 Active [address], [place], [address] , [facility] [employer] 4 09:41:05 Alice thyroiditis 26017145 Active 2024 WILTON Ramsay [address] [facility], [address], [place], [address] , [facility] [employer] [facility] [employer] 10:19:49 Problem Notes None recorded. Procedures Surgical History Date Name Laterality Status Provider Name and Address Organization Details Recorded Time tonsilectom y/adenoids completed Not Available [facility] 09/30/2022 20:40:40 Imaging Results Imaging Date Name Status LastModified by Organiz ation Details LastModified Time 03/10/2023 US, obstetric completed [email or web address] Orlando romo [address] [facility] [address], [place], [address], 03/11/2023 07:37:18 08/23/2024 US, thyroid completed [facility] [address] [facility], [place], [address], 08/23/2024 14:40:37 Procedure Notes None recorded. Medical Equipment None Reported. Allergies No known drug allergies Medications Name Sig Start Date Stop Date Status Note LastModified by Organization Details LastModified Time labetalol 200 mg tablet TAKE 1 TABLET BY MOUTH TWICE DAILY 08/18 completed Not Available Not Available Not Available fluconazole 150 mg tablet TAKE 1 TABLET BY MOUTH EVERY 3 DAYS FOR 3 DOSES 08/12 completed Not Available Not Available Not Available lisinopril 20 mg tablet Take 1 tablet every day by oral route as directed for 90 days. 2024 active Not Available Not Available Not Avai lable ondansetron HCl 4 mg tablet 12/01 completed Not Available Not Available Not Available prednisone 20 mg tablet 12/01 completed Not Available Not Available Not Available metronidazo le 500 mg tablet 12/01 completed Not Available Not Available Not Available levothyroxi ne 25 mcg tablet Take 1 tablet every day by oral route as directed for 90 days. 2024 active Not Available Not Available Not Avai lable pantoprazol e 40 mg tablet,santhosh yed release Take 1 tablet every day by oral route. 01/19 completed Not Available Not Available Not Available oseltamivir 75 mg capsule 12/01 completed Not Available Not Available Not Available esomeprazol e magnesium 40 mg capsule,del ayed release Take 1 capsule every day by oral route. active Not Available Not Available No t Available ranitidine 150 mg tablet 12/01 completed Not Available Not Available Not Available lisinopril 10 mg tablet TAKE 1 TABLET BY MOUTH EVERY DAY 05/12 completed Not Available Not Available Not Available polymyxin B sulfate 10,000 unit-trimet hoprim 1 mg/mL eye drops INSTILL 1 DROP INTO AFFECTED EYE(S) BY OPHTHALMI C ROUTE EVERY 6 HOURS x 7 days 05/12 completed Not Available Not Available Not Available progesteron e micronized 200 mg capsule TK 1 C PO QD 05/12 completed Not Available Not Available Not Available norethindro ne acetate 5 mg tablet TAKE 1 TABLET BY MOUTH EVERY DAY FOR 10 CONSECUTI VE DAYS OF EACH MONTH 04/29 completed Not Available Not Available Not Available ergocalcife rol (vitamin D2) 1,250 mcg (50,000 unit) capsule TAKE 1 CAPSULE BY MOUTH 1 TIME EVERY WEEK FOR 8 WEEKS active Not Available Not Available No t Available levofloxaci n 500 mg tablet 12/01 completed Not Available Not Available Not Available norethindro ne (contracept misael) 0.35 mg tablet TK 1 T PO QD 12/01 completed Not Available Not Available Not Available lisinopril 40 mg tablet TAKE 1 TABLET BY MOUTH EVERY DAY DIRECTED active Not Available Not Available No t Available cefdinir 300 mg capsule 12/01 completed Not Available Not Available Not Available metformin ER 500 mg tablet,exte nded release 24 hr TAKE 1 TABLET BY MOUTH EVERY DAY DIRECTED 08/18 completed Not Available Not Available Not Available amoxicillin 875 mg-potassiu m clavulanate 125 mg tablet TAKE 1 TABLET BY MOUTH EVERY 12 HOURS FOR 10 DAYS 08/12 completed Not Available Not Available Not Available escitalopra m 10 mg tablet TAKE 1 TABLET BY MOUTH EVERY DAY 05/12 completed Not Available Not Available Not Available escitalopra m 20 mg tablet TAKE 1 TABLET BY MOUTH EVERY DAY DIRECTED active Not Available Not Available No t Available duloxetine 30 mg capsule,del ayed release TAKE 1 CAPSULE BY MOUTH EVERY DAY 01/19 completed Not Available Not Available Not Available duloxetine 60 mg capsule,del ayed release 01/19 completed Not Available Not Available Not Available progesteron e take 1 by mouth for 10 days a month 05/12 completed Not Available Not Available Not Available Trulicity 1.5 mg/0.5 mL subcutaneou s pen injector Inject 1.5 mg every week by subcutane ous route as directed for 28 days. active Not Available Not Available No t Available Trulicity 0.75 mg/0.5 mL subcutaneou s pen injector ADMINISTE R 0.75 MG UNDER THE SKIN EVERY WEEK DIRECTED 08/18 completed Not Available Not Available Not Available Trulicity 3 mg/0.5 mL subcutaneou s pen injector Inject 0.5 mL every week by subcutane ous route as directed for 28 days. 2024 active Not Available Not Available Not Avai lable Ozempic 0.25 mg or 0.5 mg (2 mg/3 mL) subcutaneou s pen injector Inject 0.25 mL every week by subcutane ous route. 08/18 completed Not Available Not Available Not Available Vitals Date Recorded Body mass index (BMI) Body height Oxygen saturation Oxygen saturation in Arterial blood by Pulse oximetry Heart rate Body temperature Body weight Systolic blood pressure Diastolic blood pressure Provider Name and Address Organization Details Last Updated DateTime 2 33.5 kg/m2 170.18 cm 98 % 98 % 67.98 /min 97.39 [degF] 12061.7 7 g 142 mm[Hg] 82 mm[Hg] Not Available [facility] 3 20:41:33 Date Recorded Body mass index (BMI) Body height Oxygen saturation Oxygen saturation in Arterial blood by Pulse oximetry Heart rate Body temperature Body weight Systolic blood pressure Diastolic blood pressure Provider Name and Address Organization Details Last Updated DateTime 2 47.5 kg/m2 170.18 cm 98 % 98 % 84 /min 98.5 [degF] 687009. 49 g 144 mm[Hg] 88 mm[Hg] Not Available [facility] 3 20:41:34 Date Recorded Body weight Body mass index (BMI) Body height Body temperature Heart rate Respiratory rate Oxygen saturation Oxygen saturation in Arterial blood by Pulse oximetry Systolic blood pressure Diastolic blood pressure Provider Name and Address Organization Details Last Updated DateTime 4 915214. 24 g 51 kg/m2 172.72 cm 97.3 [degF] 88 /min 20 /min 97 % 97 % 120 mm[Hg] 70 mm[Hg] Micaela Bliss RN [facility] [employer] [facility] 4 14:18:40 Date Recorded Body height Body mass index (BMI) Body weight Body temperature Heart rate Respiratory rate Oxygen saturation Oxygen saturation in Arterial blood by Pulse oximetry Systolic blood pressure Diastolic blood pressure Provider Name and Address Organization Details Last Updated DateTime 4 172.72 cm 50.4 kg/m2 005018. 17 g 97.2 [degF] 72 /min 20 /min 98 % 98 % 164 mm[Hg] 90 mm[Hg] Micaela Bliss RN [facility] [employer] [facility] 4 15:39:48 Date Recorded Body height Body mass index (BMI) Body weight Body temperature Heart rate Respiratory rate Oxygen saturation Oxygen saturation in Arterial blood by Pulse oximetry Systolic blood pressure Diastolic blood pressure Provider Name and Address Organization Details Last Updated DateTime 5 172.72 cm 48.4 kg/m2 276665. 77 g 97.5 [degF] 105 /min 24 /min 97 % 97 % 118 mm[Hg] 66 mm[Hg] Micaela Bliss RN [facility] [employer] [facility] 5 15:03:29 Social History Question Answer Notes LastModified by Organizat ion Details LastModified Time Tobacco Smoking Status Never Smoker Not Available [employer] 09/30/2022 20:40:26 Do You Have An Advance Directive? No Information not available 05/12/2024 What Is Your Level Of Caffeine Consumption? Occasional MIGRATION.[id number] Information not available 09/30/2022 In The 14 Days Before Symptom Onset, Have You Had Close Contact With A Laboratory-confi rmed COVID-19 While That Case Was Ill? No MIGRATION.[id number] Information not available 09/30/2022 In The 14 Days Before Symptom Onset, Have You Had Close Contact With A Person Who Is Under Investigation For COVID-19 While That Person Was Ill? No MIGRATION.24374 45753 Information not available 09/30/2022 Are You Currently Employed? Yes Information not available 05/12/2024 What Type Of Diet Are You Following? SPECIFIC MIGRATION.28862 04404 Information not available 09/30/2022 Do You Or Have You Ever Used E-cigarettes Or Vape? Current User Of Electronic Cigarettes MIGRATION.43217 67588 Information not available 09/30/2022 What Is The Highest Grade Or Level Of School You Have Completed Or The Highest Degree You Have Received? 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 No MIGRATION.35253 00956 Information not available 09/30/2022 Do You Use Insect Repellent Routinely? Yes MIGRATION.77909 08270 Information not available 09/30/2022 Where Do You Live? [place]House MIGRATION.16365 08357 Information not available 09/30/2022 Do You Have A Medical Power Of Integration Project Manager? No Information not available 05/12/2024 How Many Children Do You Have? 1 Information not available 05/12/2024 Do You Have Any Pets? Yes MIGRATION.09056 86801 Information not available 09/30/2022 What Is Your Relationship Status? Single MIGRATION.38311 00666 Information not available 09/30/2022 Do You Use Your Seat Belt Or Car Seat Routinely? Yes MIGRATION.58743 36614 Information not available 09/30/2022 Do You Have Smoke And Carbon Monoxide Detectors In Your Home? Yes MIGRATION.48592 53119 Information not available 09/30/2022 Are You Passively Exposed To Smoke? No MIGRATION.07928 29401 Information not available 09/30/2022 Are There Any Smokers In Your House? No MIGRATION.53623 52043 Information not available 09/30/2022 Do You Participate In Social Media? Yes MIGRATION.78853 08569 Information not available 09/30/2022 Do You Feel Stressed (tense, Restless, Nervous, Or Anxious, Or Unable To Sleep At Night)? [id number] Information not available 05/12/2024 Do You Use Sunscreen Routinely? Yes MIGRATION.01553 89641 Information not available 09/30/2022 Have You Recently Traveled Abroad? No Information not available 05/12/2024 Are You Currently In School? No MIGRATION.73419 94363 Information not available 09/30/2022 Do You Have Any Dietary Restrictions? No MIGRATION.58016 80739 Information not available 09/30/2022 Sex: Female Functional Status Question Answer Note LastModified by Organizat ion Details LastModified Time What is your exercise level? Occasional [id number] 26 Information not available 09/30/2022 Mental Status None recorded. Family History Relationship Description Onset Age of this Age Resolved Age Notes LastModified by Organization Details LastModified Time Unspecified Relation Diabetes mellitus MIGRATION.466 [id number] Not available 09/30/2022 20:40:42 Unspecified Relation Family history of malignant neoplasm MIGRATION.184 [id number] Not available 09/30/2022 20:40:42 Unspecified Relation Hypertensive disorder MIGRATION.783 [id number] Not available 09/30/2022 20:40:42 Unspecified Relation Chronic obstructive pulmonary disease MIGRATION.811 [id number] Not available 09/30/2022 20:40:42 Medical History Condition Response BLINDNESS N RHEUMATIC FEVER N BLADDER PROBLEMS N KIDNEY STONES N MRSA N OTHER # 1 Y POLIO N LUNG DISEASE/DISORDER N RADIATION / CHEMOTHERAPY N COPD N Other # 2 Y BLOOD DISEASES N SURGERY N EAR OR HEARING PROBLEMS N MUMPS N BOWEL PROBLEMS N DEPRESSION (INCLUDING POST ) N FEMALE PROBLEMS / INFECTIONS N STROKE/TIA N THYROID DISEASE N ULCERS N BENIGN PROSTATIC HYPERPLASIA N MEASLES N CERVICALGIA N TB SKIN TEST N MYOCARDIAL INFARCTION N PARAPELGIA N OBESITY N GERD/NAUSEA N ANEURYSM N URINARY/BLADDER/KIDNEY PROBLEMS N CORONARY ARTERY DISEASE (CAD) N MENIERE'S DISEASE N ADDICTION CONCERNS N ENDOMETRIOSIS N USE OF BLOOD THINNERS N SKIN PROBLEMS N EMPHYSEMA N GASTROINTESTINAL DISORDER N MUSCLE,JOINT OR BONE PROBLEMS N GASTROINTESTINAL BLEEDING N BLOOD CLOTS N ASTHMA N CATARACTS N ERECTILE DYSFUNCTION N GI PROBLEMS N CHF N Low Testosterone N NEUROPATHY N INFERTILITY N AIDS/HIV N FRACTURES N CHEMOTHERAPY / RADIATION N VISION/EYE PROBLEMS N LIVER DISEASE N MALE HYPOGONADISM N HYPERTENSION Y ANXIETY DISORDER N BLOOD TRANSFUSION N ANEMIA/BLOOD DISORDER N CHRONIC EAR INFECTIONS N BRONCHITIS N TUBERCULOSIS N GLAUCOMA N FOOT PROBLEM N DIVERTICULITIS N SLEEP APNEA N CHICKENPOX N ALLERGIES/HAYFEVER N INFECTIOUS DISEASE N PROSTATE N HEART ARRHYTHMIA N INSOMNIA N HIGH CHOLESTEROL / HYPERLIPIDEMIA N EYE PROBLEMS N HYPERTHYROIDISM N EATING DISORDER N NEUROLOGICAL PROBLEMS N EDEMA N CHRONIC PAIN SYNDROME N HYPOTHYROIDISM N CAROTID BLOCKAGE N CONSTIPATION N BACK / NECK PROBLEMS N HAVE YOU BEEN HOSPITALIZED OR SEEN IN [facility] ER IN THE PAST YEAR ? N ATHEROSCLEROSIS N BREAST PROBLEMS N DIALYSIS N ECZEMA N FIBROMYALGIA N OSTEOPOROSIS N ARTHRITIS N NO SIGNIFICANT PAST MEDICAL HISTORY N APPENDICITIS N DIABETES, TYPE N BAD TEETH N HEARTBURN / REFLUX N ADD/ADHD N AUTISM SPECTRUM DISORDER (ASD) N HEPATITIS / LIVER DISEASE N PULMONARY DISEASE N GOUT N SLEEP DISORDER N ALZHEIMER'S DISEASE N PAIN N DEMENTIA N HERPES N SEIZURES/EPILEPSY N HEADACHES/MIGRAINES N VASCULAR DISEASE N PACEMAKER N DIZZINESS N HEART DISEASE/HEART PROBLEMS N KIDNEY DISEASE N SCARLET FEVER N MULTIPLE SCLEROSIS N DEVELOPMENTAL OR BEHAVIORAL DISORDERS N MENTAL DISORDER/ILLNESS N CANCER: SPECIFY N CARDIAC ARRHYTHMIA N PNEUMONIA N ATRIAL FIBRILLATION N Gall Stones N PULMONARY EMBOLISM N AUTOIMMUNE DISEASE N Gynecological History Statement/Question Response Date of Last Colonoscopy Date of LMP 08/31/2021 Most Recent Bone Density Date of Last Pap Smear Current Control Method Other Most Recent Mammogram Obstetrics History GPAL:G 0 P 0 0 0 0 Past Encounters Encounter ID Performer Location Encounter Start Date Encounter Closed Date Diagnosis/Indication Diagnosis SNOMED-CT Code Diagnosis ICD10 Code Diagnosis Note [id number] [address] [address] 11/01/2020 00:00:00 01/29/2021 18:03:[id number] [address] 1 08/12/2021 00:00:00 08/12/2021 12:01:[id number] [address] 1 09/12/2021 00:00:00 09/12/2021 19:08:[id number] [address] 1 04/29/2022 00:00:00 04/29/2022 16:42:07 [id number] WILTON Ramsay [address] [address] 1 05/12/2024 14:07:51 05/12/2024 14:52:22 Adult health examination 380363284 Z00.00 Encouraged high protein, low carb, low sugar foodEncour aged increased cardiovasc ular exercise Essential hypertension 96717135 I10 She will trial 1/2 tab of labetlol BID and keep BP log Anxiety 33676291 F41.9 Fatigue 30768994 R53.83 [id number] WILTON Ramsay [address] [address] 06/13/2024 15:27:12 06/13/2024 16:49:16 Anemia 440545871 D64.9 Prediabetes 395359379 R7 3.03 Did not tolerate Metformin, N/V/DOzemp ic sample given in office Essential hypertension 63316653 I10 She will trial 1/2 tab of labetlol BID and keep BP log [id number] WILTON Ramsay [facility] [address] [place] [address] 08/18/2024 14:50:46 08/18/2024 17:07:53 Prediabetes 219666532 R73.03 Did not tolerate Metformin, N/V/D, stopping metforminO zempic sample given in office Essential hypertension 79778332 I10 She will trial 1/2 tab of labetlol BID and keep BP log Thyroid st imulating hormone level above reference range 506354621 R79.89 Health Concerns Section Related Observation LastModified by Organization Detai ls LastModified Time None Recorded Concern Status LastModified by Organization Details LastModified Time None Recorded Advance Directives Directive N: Payers Encounter Date Sequence Insurance Name Policy Number Policy Ball Covered Member ID Ball Member ID Guarantor Name 05/12/2024 1 [employer] (MEDICAID HMO) [id number] Geneva Allen [id number] Geneva Allen 06/13/2024 1 [employer] (MEDICAID HMO) [id number] Geneva Allen [id number] Geneva Allen 08/18/2024 1 [employer] (MEDICAID HMO) [id number] Geneva Allen [id number] Geneva Allen Notes Date Note Type Note Provider Name and Address Organization Details Recorded Time 05/12/2024 text/html Geneva Allen is a 28 year old female patient here today for an annual wellness visit. He has a history of anxiety. She is taking lexapro 20 mg PO daily, states her anxiety is well managed. She is taking labetalol 200 mg BID for hypertension. Her BP on arrival is 120/70. States at home will averages 120s/65-80. She has concerns with weight. Her BMI is 51. She is watching her food and exercising as tolerated.She has a history of PCOS She has a history of iron deficiency anemia. She states she is feeling fatigued. Flu shot: recommended at [facility] vaccines: declinesTdap: 2022 WILTON Ramsay [address], [place], [address], [employer] 05/12/2024 14:47:33 06/13/2024 text/html Geneva Allen is a 28 year old female patient here today to follow up on labs. She had annual labs on 05/12/24 which identified an abnormal CBC, vitamin D, and A1C. She began Metformin and had GI side effects included nausea and diarrhea. She has concerns with menstrual abnormalities since starting Metformin and Ozempic sample. WILTON Ramsay [address], [place], [address], [employer] 06/13/2024 16:48:56 08/18/2024 text/html Geneva Allen is a 28 year old female patient here today to follow up on medications. She had annual labs on 05/12/24 which identified an abnormal CBC, vitamin D, and A1C. She began Metformin and had GI side effects included nausea and diarrhea.Is Has had some issues with blood pressure. She was taking labetalol during this was not controlling BP. Bp is now controlled 120s/60s.Has concerns with light headedness with changing positions. WILTON Ramsay [address], [place], [address], [employer] 08/18/2024 16:47:48 OBGyn Episode No OBEpisode recorded.
== END 2024-08-23 09:08 | disposition home or self-care (01) ==
LOC: ANHLAB 09:08
PROVIDERS: Internal Medicine Medical Oncology; PCP Nurse Practitioner Family; Visit Provider Internal Medicine Hematology & Oncology
DX: D72.829 Elevated white blood cell count, unspecified (principal); D50.9 Iron deficiency anemia, unspecified
CPT/HCPCS: 36415; 82607; 82728; 82746; 83540; 83550; 85046; 88184

== ENCOUNTER 2024-08-31 11:12 | Outpatient (CLI) | payer OTHER, MEDICAID, SELFPAY ==
--- OUTSIDE RECORDS SUMMARY | 2024-08-31 12:10 | XMS_ITS | Encounter Summary ---
Author Organization [facility] Address [address] [place] [address] Care Team Providers Care Warble Saw Operator Name Role Phone Jacquelyn Craft MD Primary Care Provider + Encounter Details Date Type Department Care Team (Late st Contact Info) Description 08/21/2016 Orders Only [facility] ProviderJuan MD [address] [place] [address] Social History Tobacco Use Types Packs/Day Years Used Date Smoking Tobacco: Never Assessed Comments Unknown Sex and Gender Information Value Date Recorded Sex Assigned at Not on file 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 Historical Provider [facility] ARIE CASTRO Final Result documented in this encounter Visit Diagnoses Not on filedocumented in this encounter Care Teams Warble Saw Operator Relationship Specialty Start Date End Date Jacquelyn Craft MD [address] [place] [address] PCP - General 10/30/16 documented as of this encounter
--- OUTSIDE RECORDS SUMMARY | 2024-08-31 12:10 | XMS_ITS | Referral Summary ---
Author Organization [facility] [address] Address [address] [place] [address] Care Team Providers Care Heel Splitter Name Role Phone Jacquelyn Craft MD Primary Care Provider + Allergies No known active allergies Medications etonogestrel (NEXPLANON) 68 mg implant 68 mg. 0 0 7 Active Additional Information Patient not taking.Reported on 03/02/2017 NORETHINDRONE (JOLIVETTE ORAL) Take by mouth daily. Active Active Problems Problem Noted Date Diagnosed Date Morbid obesity with BMI of 45.0-49.9, adult 12/2016 Assessment & Plan (03/07/2017 10:12 PM CDT): Wt up 8#; unable to loose wt Discussed low carb diets, risks and benefits; discussed [place] and [place] diet, etc. Precordial pain 03/07/2017 Assessment & Plan (03/07/2017 10:12 PM CDT): Noncardiac CP seems to have abated. Lifestyle problems 03/07/2017 Assessment & Plan (03/07/2017 10:14 PM CDT): Has some poor lifestyle habits. Congratualted on reducing soda consumption. 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 Gender Identity Not on file Sexual Orientation Not on file Last Filed Vital Signs Vital Sign Reading Time Taken Comments Blood Pressure 126/74 03/02/2017 9:13 AM CDT Pulse 78 03/02/2017 9:13 AM CDT Temperature - - Respiratory Rate - - Oxygen Saturation 98% 03/02/2017 9:13 AM CDT Inhaled Oxygen Concentration - - Weight 137.9 kg (304 lb) 03/02/2017 9:13 AM CDT Height 170.2 cm (5' 7 ) 03/02/2017 9:13 AM CDT Body Mass Index 47.61 03/02/2017 9:13 AM CDT Plan of Treatment Not on file Insurance Care Teams Heel Splitter Relationship Specialty Start Date End Date Jacquelyn Craft MD [address] [place] [address] PCP - General 10/30/16
--- OUTSIDE RECORDS SUMMARY | 2024-08-31 12:10 | XMS_ITS | Encounter Summary ---
Author Organization [facility] Address [address] [place] [address] Care Team Providers Care Medical Genetics Director Name Role Phone Jacquelyn Craft MD Primary Care Provider + Encounter Details Date Type Department Care Team (Late st Contact Info) Description 09/17/2016 Orders Only [facility] ProviderJuan MD [address] [place] [address] Social History Tobacco Use Types Packs/Day Years Used Date Smoking Tobacco: Never Alcohol Use Standard Drinks/Week Comments No 0 (1 standard drink = 0.6 oz pur e alcohol) Comments Unknown Sex and Gender Information Value Date Recorded Sex Assigned at Not on file 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 Historical Provider [facility] PROCE DURES Final Result * CARDIOLOGY REPORT (09/17/2016) Anatomical Region Laterality Modality Other Narrative 09/17/2016 Ordered by an unspecified provider. Historical Provider [facility] PROCE DURES Final Result documented in this encounter Visit Diagnoses Not on filedocumented in this encounter Care Teams Medical Genetics Director Relationship Specialty Start Date End Date Jacquelyn Craft MD [address] [place] [address] PCP - General 10/30/16 documented as of this encounter
--- OUTSIDE RECORDS SUMMARY | 2024-08-31 12:10 | XMS_ITS | Encounter Summary ---
Author Organization [facility] [employer] [facility] Address [address] [place] [address] Care Team Providers Care Fourdrinier Machine Tender Name Role Phone Unavailable Primary Care Provider Unavailabl e Encounter Details Date Type Department Care Team (Late Contact Info) Description 08/29/2024 Orders Only [facility] Oncology and Hematology [facility] [address] [place] [address] Jonathon Ordonez MD [facility] [address] [place] [address] Social History Tobacco Use Types Packs/Day Years Used Date Smoking Tobacco: Never Smokeless Tobacco: Never Alcohol Use Standard Drinks/Week Comments Yes 0 (1 standard drink = 0.6 oz pur e alcohol) Occasionally Comments Unknown Sex and Gender Information Value Date Recorded Sex Assigned at Not on file Legal Sex Female 10:24 AM TACK PICKER Gender Identity Not on file Sexual Orientation Not on file documented as of this encounter Plan of Treatment Upcoming Encounters Date Type Department Care Team (Late Contact Info) Description 09/07/2024 4:30 PM TACK PICKER Telephone Check Up [facility] Oncology and Hematology [place] [address] [place] [address] Jonathon Ordonez MD [facility] [address] [place] [address] documented as of this encounter Procedures Procedure Name Priority Date/Time Associated Diagnosis Comments BCR/ABL DIAGNOSTIC ASSAY W/REFLEX Routine 08/23/2024 3:15 PM TACK PICKER documented in this encounter Results * BCR/ABL DIAGNOSTIC ASSAY W/REFLEX (08/23/2024 3:15 PM TACK PICKER) us Jonathon Ordonez MD BODY FLUIDS AND STOOLS Final Re sult documented in this encounter Visit Diagnoses Not on filedocumented in this encounter
--- OUTSIDE RECORDS SUMMARY | 2024-08-31 12:10 | XMS_ITS | Patient Health Summary ---
Author Organization [facility] Address [address] [place] [address] Care Team Providers Care Customer Service Correspondence Clerk Name Role Phone Ana Akins MD Primary Care Provider [phone] Note from [facility],non-owned Affiliates and Associated Physician Practices is amultiple site organization consisting of ambulatory clinics and hospital sitesin [place], [place], [place] and [place]. This disclosure is being madepursuant to the Care Everywhere program and may not contain all information available regarding this patient. Last updated 18.[facility] Allergies No known active allergies Medications Be aware that medications may not be up to date on this document. Always verify current medications with the patient. No known medications Active Problems Problem Noted Date Diagnosed Date Marginal insertion of umbili rama cord affecting management of mother 01/25/2023 Circumvallate placenta in second trimester 01/25 Placental abnormality in second trimester 2022 Social History Tobacco Use Types Packs/Day Years Used Date Smoking Tobacco: Never Smokeless Tobacco: Never Alcohol Use Standard Drinks/Week Comments No 0 (1 standard drink = 0.6 oz pur e alcohol) Sex and Gender Information Value Date Recorded Sex Assigned at Not on file Gender Identity Not on file Sexual Orientation Not on file Last Filed Vital Signs Vital Sign Reading Time Taken Comments Blood Pressure 123/65 01/27/2023 10:51 AM CDT Pulse 79 01/27/2023 10:51 AM CDT Temperature 37.2 ??C (99 ??F) 12/24/2017 5:58 PM CDT Respiratory Rate 16 12/24/2017 5:58 PM CDT Oxygen Saturation 98% 12/24/2017 5:58 PM CDT Inhaled Oxygen Concentration - - Weight 148.2 kg (326 lb 12.8 oz) 2022 10:51 AM CDT Height 170.2 cm (5' 7 ) 01/27/2023 10:5 1 AM CDT Body Mass Index 51.18 01/27/2023 10:51 AM CDT Procedures * SONOGRAM - COMPLETE(Performed 01/27/2023) Performed for Placental abnormality in second trimester ([facility]), Circumvallate placenta in second trimester ([facility]), Marginal insertion of umbilical cord affecting management of mother ([facility]), History of chronic hypertension, Morbid obesity with BMI of 50.0-59.9, adult ([facility]), Subclinical hypothyroidism,PCOS (polycystic ovarian syndrome), 26 weeks gestation of ([facility]) Results * SONOGRAM - COMPLETE (01/27/2023 10:03 AM CDT) Anatomical Region Laterality Modality Other 01/27/2023 10:0 3 AM CDT Narrative 01/27/2023 10:55 AM CDT ? [facility] ?PHONE: ??FAX: Pat. Name: ?GENEVA NIELSEN Pat. No: ?[id number] Study Date: ?? 01/27/2023 ??10:03am , Age: ? 1995, 27 Pregnancies: ?? 1 Height: ? 67 in Weight: ? 323 lb LMP: ?Unknown GA by US: ? 26w3d ?? MELANIE: 05/02/2023 GA Selected: ??26w2d (From Known E) MELANIE: ?05/03/2023 Referring MD: Linda Chu MD Footwear Sales Leader: ??Nancy Fajardo RDMS CPT4: ? 49012 BMI: ?50.58 Hist/Ind: ? Possible [place] ?CHTN: Labetalol ?Class IV Obesity (50) ?Hypothyroidism ?LR NIPT (F) MEASUREMENTS & AGE ? GROWTH EVALUATION Measurement ??GA ? Range ? Srce %for GA Ratios ----- ---- ------- BPD ??6.6 cm 26w4d (70l1d-05z1h) Hadl BPD 50% FL/BPD 0.73 (0.71 - 0.87) HC ??23.9 cm 26w0d (79k2l-67r6o) Hadl HC ??15% FL/AC ??0.21 (0.20 - 0.24) AC ??22.8 cm 27w1d (06z8p-52x9t) Hadl AC ??70% HC/AC ??1.05 (1.00 - 1.19) FL ?? 4.8 cm 26w0d (71c9n-33o8y) Hadl FL ??27% CI ? 0.78 (0.70 - 0.86) HL ?? 4.5 cm 26w5d (21g1u-85z9d) Zaheer HL ??56% Cere 3.1 cm 26w4d (93g4b-80f4b) Hill Cere58% GA for sonogram 26w3d (03x5r-51c0b) ?? Weight Estimate: based on (BPD,HC,AC,FL,Cere) Avg ? Weight: 961 gm (821-1101gm) Hadlo ? : 2lbs, 1oz ? Normal: 954 gm (715- 1192gm) Hadlo ? Wt% ? 53% for 26w2d Heart Rate: 138 bpm Amniotic Fluid Index: 07.4cm (Deepest Pocket) EVAL, PLACENTA Presentation: cephalic Umbilical Cord: 3 Vessels Placenta: right lateral Heart Rate: 138 bpm Amniotic Fluid Volume: normal Anatomy!Normal!Abnormal!Suboptimal!Prev. Seen!Comments Cranium ?! ?? x ??! ?! ?! ?! Mdl (CSP/Thal! ?? x ??! ?! ?! ?! Ventricles ?? ! ?? x ??! ?! ?! ?! Choroid Plexu! ?? x ??! ?! ?! ?! Cerebellum ?? ! ?? x ??! ?! ?! ?! Cisterna M. ??! ?? x ??! ?! ?! ?! Orbits ? ! ?? x ??! ?! ?! ?! Profile ?! ?? x ??! ?! ?! ?! Nasal Bone ?? ! ?? x ??! ?! ?! ?! Lip ?! ?! ?! ? x ?! ?! Lungs ?! ?? x ??! ?! ?! ?! 4 Chamber Hea! ?? x ??! ?! ?! ?! LVOT ? ! ?? x ??! ?! ?! ?! RVOT ? ! ?! ?! ? x ?! ?! 3 Vessel View! ?? x ??! ?! ?! ?! 3 Vessel Trac! ?! ?! ? x ?! ?! Cross-over ?? ! ?! ?! ? x ?! ?! Ductal Arch ??! ?? x ??! ?! ?! ?! Aortic Arch ??! ?? x ??! ?! ?! ?! Caval View ?? ! ?? x ??! ?! ?! ?! Situs ?! ?! ?! ? x ?! ?! Diaphragm ?! ?? x ??! ?! ?! ?! Stomach ?! ?? x ??! ?! ?! ?! Bowel ?! ?? x ??! ?! ?! ?! Kidneys ?! ?? x ??! ?! ?! ?! Bladder ?! ?? x ??! ?! ?! ?! 3 Vessel Cord! ?? x ??! ?! ?! ?! Cord In! ?? x ??! ?! ?! ?! Upper Extremi! ?? x ??! ?! ?! ?! Hands ?! ?? x ??! ?! ?! ?! Lower Extremi! ?? x ??! ?! ?! ?! Feet ? ! ?? x ??! ?! ?! ?! Placental Cor! ?? x ??! ?! ?! ?! CLINICAL SUMMARY A single fetus is seen in cephalic presentation. ??The measurements today are consistent with appropriate growth for the MELANIE provided. ??The MELANIE is based on a prior ultrasound examination (confirmed). ??The amniotic fluid volume is within normal limits. ?? We were asked to consult on the appearance of the placenta which is normal. ??She has cHTN and is on Labetalol with reported good control. ??Also on Levothyroxine for hypothyroid, also reportedly under good control. ??She is M.O. and is on LDASA. ??She has no comps today. ??She reports good FM, denies LOF, bleeding, DC, cramps/ctxs/pain, HAs, vis change or significant swelling. ??This is her first . IMPRESSION: Single, live, intrauterine at 26w2d ?? size is within normal limits ?? Amniotic fluid volume: within normal limits ?? Incomplete anatomic survey No major malformations were seen within the limitations of ultrasound RECOMMEND: Ultrasound in 4 weeks for growth and to complete anatomic survey Begin weekly BPP at 32 weeks, sooner if clinically indicated Cont LD ASA, 162 mg/day Cont Labetalol and Levothyroxine Reviewed kick counts, preecl, PTL warning signs/symptoms Keep all appts with Dr. Dale's office Thank you for allowing us the opportunity to care for your patient Ish Vasquez MD <Electronic Signature> ??01/27/2023 10:54am Linda Chu MD [facility] ORDERABLES Care Teams Customer Service Correspondence Clerk Relationship Specialty Start Date End Date Ana Akins MD [facility] [address] [place] [address] PCP - General Pediatrics 05/09/15
--- OUTSIDE RECORDS SUMMARY | 2024-08-31 12:10 | XMS_ITS | Clinical Summary ---
Author Organization [facility] [address] Address [address] [place] [address] Care Team Providers Care Footwear Sales Associate Name Role Phone Jacquelyn Craft MD Primary [...] Morbid obesity with BMI of 45.0-49.9, adult Surgical History Surgery Date Site/Laterality Comments ADENOIDECTOMY Adenoidectomy TONSILLECTOMY Tonsillectomy Family History Medical History Relation Name Comments Other Father A&W, oc neded t x for HTN; Other Mother 2 Alive and well; Cancer Other Family history of Cancer, unknown; Diabetes Other Family history of Diabetes mellitus; Heart disease Other Family history of Cardiovascular disease; Hyperlipidemia Other Family histor y of Hyperlipidemia; Hypertension Other Family history of Hypertension; Relation Name Status Comments Father Mother 1 Alive Mother 2 Other Social History Tobacco Use Types Packs/Day Years [...] on file 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
--- OUTSIDE RECORDS SUMMARY | 2024-08-31 12:10 | XMS_ITS | Continuity of Care Document ---
Author Name [facility] Organization [facility] Care Team Providers Care Furniture Arranger Name Role Phone [facility] Unavailable Unavailable Social History Combined list of available smoking, tobacco, and other social history from Department of Defense and Veterans Affairs facilities. Social History Type Response Date Comment Sourc e This section is an empty social history section. [facility]
--- OUTSIDE RECORDS SUMMARY | 2024-08-31 12:10 | XMS_ITS | Encounter Summary ---
Author Organization [facility] Address [address] [place] [address] Care Team Providers Care Rehabilitation Counselor Name Role Phone Jacquelyn Craft MD Primary Care Provider + Encounter Details Date Type Department Care Team (Late st Contact Info) Description 09/21/2016 Orders Only [facility] ProviderJuan MD [address] [place] [id number] Social History Tobacco Use Types Packs/Day Years Used Date Smoking Tobacco: Never Alcohol Use Standard Drinks/Week Comments No 0 (1 standard drink = 0.6 oz pur e alcohol) Comments Unknown Sex and Gender Information Value Date Recorded Sex Assigned at Not on file 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 Historical Provider [facility] ARIE CASTRO Final Result documented in this encounter Visit Diagnoses Not on filedocumented in this encounter Care Teams Rehabilitation Counselor Relationship Specialty Start Date End Date Jacquelyn Craft MD [address] [place] [address] PCP - General 10/30/16 documented as of this encounter
--- OUTSIDE RECORDS SUMMARY | 2024-08-31 12:11 | XMS_ITS | Data Portability ---
Author Organization [facility] [place] Address [address] [place] [address] [place] [address] Assessment No assessment recorded. Plan of Treatment Reminders Order Date Submit Date Provider Last Modified By Organization Details Last Modified Time Details Appointments None recorded. Lab test, urine 2022 023 [email or web address] [place] [facility] [address], [address], [place], [address], 16:09:28 TSH, serum or plasma 2022 023 [facility] (Lab), [address], [place], [address], 03:53:44 Referral None recorded. Procedures None recorded. Surgeries None recorded. Imaging None recorded. Medication Orders None recorded. Patient TargetsNo targets recorded. Patient InstructionsNo instructions recorded. Reason for Referral None Reported. Results Created Date Observation Date Name Description Value Unit Range Abnormal Flag Note LastModifiedBy Organization Detail LastModifiedTime 06/02/2006/02/2023 TSH, REFLE X FREE T4 TSH 1.46 uIU/m L 0.30-5 .33 Not Available [facility] (Lab) [address], [place], [address], 06/03/2023 03:53:42 06/02/20 23 06/02/2023 pregn stormy test, urine HCG negati ve Not Available [place] [address], [place], [address], 06/02/2023 16:09:02 04/02/20 23 04/02/2023 US, obste tric, bioph ysica l profi le + non-s tress test No observ ation record ed. [email or web address] [place] [address], [place], [address], 04/02/2023 13:52:50 04/02/20 23 04/02/2023 US, obste tric, bioph ysica l profi le + non-s tress test No observ ation record ed. LINDA Walker [address], [place], [address], 04/19/2023 05:33:48 04/02/20 23 04/02/2023 non-s tress test No observ ation record ed. [email or web address] [place] [address], [place], [address], 04/02/2023 21:57:47 04/09/20 23 04/09/2023 US, obste tric, bioph ysica l profi le + non-s tress test No observ ation record ed. [email or web address] [place] [address], [place], [address], 04/09/2023 12:12:48 04/09/2004/09/2023 US, obste tric, bioph ysica l profi le + non-s tress test No observ ation record ed. LINDA Walker [address], [place], [address], 04/26/2023 05:35:43 04/09/20 23 04/09/2023 non-s tress test No observ ation record ed. [email or web address] [place] [address], [place], [address], 04/09/2023 10:33:04 04/16/20 23 04/16/2023 US, obste tric, follo w-up No observ ation record ed. LINDA Denise [address], [place], [address], 04/30/2023 06:03:41 04/16/2004/16/2023 US, obste tric, bioph ysica l profi le + non-s tress test No observ ation record ed. [address], [place], [address], 04/16/2023 14:17:35 04/16/2004/16/2023 US, obste tric, follo w-up No observ ation record ed. [email or web address], [place], [address], 04/16/2023 14:17:27 04/16/2004/16/2023 non-s tress test No observ ation record ed. [email or web address] [place] [address], [place], [address], 04/16/2023 13:58:54 Result Notes None recorded. Problems Name Problem SNOMED Code Status Onset Date Resolution Date Notes Provider Name and Address Organization Details Recorded Time Abnormal uterine bleeding 7515171901 9100 Completed 201801/20/2021 Other specifie d abnormal uterine and vaginal bleeding ;Recorde d Elsewher e: No Locat ion: [facility] S ource: EHR Computational Geneticist pam: N Practi ce ID: 0001 Darvin lable Time: 03:15:00 PM Zoë rodríguez [place] - [facility] 14:26:[address] Concept Completed 201501/20/2021 Encounte r for routine cancer program director exam w/o abnormal finding; Recorded Elsewher e: No [facility]: EHR Computational Geneticist pam: N Practi ce ID: 0001 Darvin lable Time: 05:15:00 PM Zëo rodríguez, [facility] 14:26:31 Bleeding 165088059 Completed 201801/20/2021 Abnormal uterine and vaginal bleeding , unspecif ied;Walker rded Elsewher e: No [facility] S ource: EHR Computational Geneticist pam: N Yoko ce ID: 0001 Darvin lable Time: 01:15:32 PM Zoë rodríguez, [facility] 14:26:[address] Concept Completed 201501/20/2021 Encounte r for surveill ance of other contrace ptives;R ecorded Elsewher e: No Locat ion: [facility] S ource: EHR Computational Geneticist pam: Ron Babcock ce ID: 0001 Darvin lable Time: 02:00:00 PM Zoë rodríguez, [facility] 14:26:36 Clinical finding Completed 201601/20/2021 Obesity; Recorded Elsewher e: No Locat ion: [facility] S ource: EHR Computational Geneticist pam: N Yoko ce ID: 0001 Darvin lable Time: 02:45:00 PM Zoë rodríguez, [facility] 14:26:20 Secondar y amenorrh ea 759136807 Completed 201801/20/2021 Secondar y amenorrh ea;Recor ded Elsewher e: No Locat ion: [facility] S ource: EHR Computational Geneticist pam: N Yoko ce ID: 0001 Darvin lable Time: 01:00:00 PM Zoë rodríguez, [facility] 14:26:23 Finding of body mass index 913835262 Completed 201501/20/2021 Body mass index (BMI) 40.0-44. 9, adult;Re corded Elsewher e: No Locat ion: [facility] S ource: EHR Computational Geneticist pam: N Maurati ce ID: 0001 Darvin lable Time: 05:15:00 PM Zoë rodríguez [facility] 14:26:28 Pregnanc y test negative 956600802 Completed 201601/20/2021 Encounte r for pregnanc y test, result negative ;Recorde d Elsewher e: No Locat ion: [facility] S ource: EHR Computational Geneticist pam: N Maurati ce ID: 0001 Darvin lable Time: 01:00:00 PM Zoë rodríguez [facility] 14:26:26 Educatio n Completed 201601/20/2021 Encounte r for other general counseli ng and advice on contrace ption;Re corded Elsewher e: No Locat ion: [facility] S ource: EHR Computational Geneticist pam: N Maurati ce ID: 0001 Darvin lable Time: 02:45:00 PM Zoë rodríguez [facility] 14:26:32 Hyperten sive disorder 28572244 Completed 201601/20/2021 Hyperten layla;Rec orded Elsewher e: No Locat ion: [facility] S ource: EHR Computational Geneticist pam: N Maurati ce ID: 0001 Darvin lable Time: 02:45:00 PM Zoë rodríguez [facility] 14:26:38 Amenorrh ea 39806901 Completed 201801/20/2021 Amenorrh ea;Recor ded Elsewher e: No Locat ion: [facility]ani [facility] S ource: EHR Computational Geneticist pam: N Maurati ce ID: 0001 Darvin lable Time: 03:30:00 PM Zoë rodríguez [facility] 14:26:21 Procedur e Completed 201601/20/2021 Encounte r for checking , reinsert ion or removal of implanta ble subderma l contrace ptive;Re corded Elsewher e: No Locat ion: [facility] S ource: EHR Computational Geneticist pam: Ron Babcock ce ID: 0001 Darvin lable Time: 02:45:00 PM Zoë rodríguez, [facility] [address] 14:26:[address] Concept Completed 201601/20/2021 Encntr for general adult medical exam w/o abnormal findings ;Recorde d Elsewher e: No Locat ion: [facility] S ource: EHR Computational Geneticist pam: N Yoko ce ID: 0001 Darvin lable Time: 08:30:00 AM Zoë rodríguez, [facility] 1 14:26:29 Pregnanc y 29622423 Completed 202205/03/2023 Sonjaevens [facility], [facility] 3 14:26:38 Severe obesity complica ting pregnanc y 1673358011 4616193 Completed BMI 46 [facility], [facility] 3 14:26:28 Chronic hyperten layla in obstetri c context 8288796 [facility] 3 14:26:28 Hypothyr oidism 28340103 Completed 11/23 increase d to 50 levo, rpt 4-6 wks Emmy L[facility], [facility] 3 14:26:28 Polycyst ic ovary syndrome 072076913 Active 2022 Linda Chu MD [address], [place], [address], [place] [facility] 3 17:51:33 Severe obesity complica ting pregnanc y 2274600950 5178351 Active BMI 46 Britaney Leland null, [facility] 3 14:26:28 Chronic hyperten layla in obstetri c context 3746510 [facility] 14:26:28 Hypothyr oidism 49167910 Active 11/23 increase d to 50 levo, rpt 4-6 wks Emmy Ha [facility], [facility] 3 14:26:28 Anxiety in pregnanc y 8979071961 9109 Active Emmy Ha [facility] 3 14:26:28 Anxiety in pregnanc y 3857948632 9109 [facility]pleted [facility] 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 also MCI and circumva llate [facility], [facility] 3 15:48:22 Subchori onic hematoma 123370300 Completed SUBAMNIO TIC HEM [facility], [facility] 3 14:26:28 Placenta circumva llata 7836559 Completed Emmy Ha [facility], [facility] 3 14:26:28 Marginal insertio n of umbilica l cord 74063165 Completed Emmy Ha [facility] 3 14:26:28 Anemia 337470478 Completed 2022 1 tab slowfe BID Emmy Ha [facility] 3 14:26:28 Problem Notes None recorded. Procedures Surgical History Date Name Laterality Status Provider Name and Address Organization Details Recorded Time 06/02/20 23 Control Implant Insertion completed Crow Dale MD [address], [place], [address], [place] [facility] 06/02/2023 16:26:12 04/23/20 23 Caesarean Section completed Martina Greenwood [facility] 07/05/2024 15:40:47 09/15/19 23 Date of Last Pap Smear completed Alize Vaughan [facility] 09/15/2022 15:22:04 01/29/20 17 Tonsillectomy completed Zoë Eduardo [facility] 01/20/2021 14:29:08 08/02/19 14 extraction of wisdom tooth completed Alize Vaughan [facility] 09/15/2022 15:23:13 Imaging Results Imaging Date Name Status LastModified by Organiz ation Details LastModified Time 04/02/2023 US, obstetric, biophysical profile + non-stress test completed [address], [place], [address], 04/02/2023 13:52:50 04/02/2023 US, obstetric, biophysical profile + non-stress test active LINDA Denise [address], [place], [address], 04/19/2023 05:33:48 04/02/2023 non-stress test completed [email or web address], [place], [address], 04/02/2023 21:57:47 04/09/2023 US, obstetric, biophysical profile + non-stress test completed [address], [place], [address], 04/09/2023 12:12:48 04/09/2023 US, obstetric, biophysical profile + non-stress test active LINDA Denise [address], [place], [address], 04/26/2023 05:35:43 04/09/2023 non-stress test completed [email or web address] [place] [address], [place], [address], 04/09/2023 10:33:04 04/16/2023 US, obstetric, follow-up active LINDA Walker [address], [facility], [place], [address], 04/30/2023 06:03:41 04/16/2023 US, obstetric, biophysical profile + non-stress test completed [address], [place], [address], 04/16/2023 14:17:35 04/16/2023 US, obstetric, follow-up [email or web address] [place] [address] [address], [place], [address], 04/16/2023 14:17:27 04/16/2023 non-stress test completed [place] [address], [place], [address], 04/16/2023 13:58:54 Procedure Notes None recorded. Medical [...] Elsewher e: No Locat ion: [facility] M odify By: [email or web address] hale DateTime [...] Elsewher e: No Locat ion: [facility] odify By: mary Valadezte r DateTime : 04/01/20 18 02:15:00 PM Not Available Not Available Not Available Lexapro 5 mg tablet take 2 tablet by oral route every day 11/17 completed Prescrib ed Elsewher e: Yes Loca tion: [facility] odify By: renea [address] ncounter DateTime : 04/01/20 18 02:15:00 PM Not Available Not Available Not Available Cymbalta 30 mg capsule,d elayed release take 1 capsule by oral route every day 11/06 completed Prescrib ed Elsewher e: Yes Loca tion: [place] [facility] odify By: nader Hilton ncounter DateTime : [...] Elsewher e: Yes Loca tion: [place] [facility] odify By: mary De Los Santos r [...] Updated DateTime 04/30/2023 171.45 cm 50 kg/m2 523325.9 2788 g 126 mm[Hg] 76 mm[Hg] [facility] 3 10:37:34 Date Recorded Body height Body mass index (BMI) Body weight Systolic blood pressure Diastolic blood pressure Provider Name and Address Organization Details Last Updated DateTime 05/05/2023 171.45 cm 49.4 kg/m2 526796.5 6 g 136 mm[Hg] 78 mm[Hg] [facility] 3 18:26:45 Date Recorded Body height Body mass index (BMI) Body weight Systolic blood pressure Diastolic blood pressure Provider Name and Address Organization Details Last Updated DateTime 05/27/2023 171.45 cm 50 kg/m2 557692.9 3 g 142 mm[Hg] 80 mm[Hg] [facility] 3 15:02:59 Date Recorded Body height Body mass index (BMI) Body weight Systolic blood pressure Diastolic blood pressure Provider Name and Address Organization Details Last Updated DateTime 06/02/2023 171.45 cm 50 kg/m2 013112.9 3 g 135 mm[Hg] 82 mm[Hg] [facility] 3 16:05:41 Date Recorded Body weight Body mass index (BMI) Body height Systolic blood pressure Diastolic blood pressure Provider Name and Address Organization Details Last Updated DateTime 07/05/2024 181245.6 7 g 51.2 kg/m2 171.45 cm 136 mm[Hg] 76 mm[Hg] Martina Greenwood [facility] 4 15:38:52 Social History Question Answer Notes LastModified by Organizat ion Details LastModified Time Tobacco Smoking Status Never Smoker [facility] 11/20/2022 16:55:49 Do You Have An Advance Directive? No Information not available 04/13/2022 What Is Your Level Of Alcohol Consumption? None [email or web address] Information not available 09/15/2022 If You Are , What Was Your Level Of Alcohol Consumption Prior To ? Occasional [email or web address] Information not available 11/20/2022 How Many Years [...] Or The Highest Degree You Have Received? 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 [id number] Information not available 04/13/2022 Do You Use Any Illicit Or Recreational Drugs? No [email or web address] Information not available 09/15/2022 Do You Use Sunscreen Routinely? Yes Information not available 04/13/2022 Have You Used IV Drugs? No Information not available 04/13/2022 Sex: Unknown Functional Status Question Answer Note LastModified by Organizat ion Details LastModified Time Do you have difficulty walking or climbing stairs? No [email or web address] Information not available 11/20/2022 Are you able to walk? YESWOREST Information not available 04/13/2022 Are you able to care for yourself? Yes Information not available 11/20/2022 Do you have difficulty dressing or bathing? No [email or web address] Information not available 11/20/2022 What is your exercise level? Occasional Information not available 04/13/2022 Mental Status None recorded. Family History Relationship Description Onset Age of this Age Resolved Age Notes LastModified by Organization Details LastModified Time Maternal Grandmother Diabetes mellitus [email or web address] Not available 2020 14:28:11 Maternal Grandmother Asthma [email or web address] Not available 01/20 14:28:25 Paternal Grandfather Hypertensive disorder Not available 2020 14:28:18 Medical History Condition Response Allergies (Food, seasonal, environmental ) N Other N Breast Cancer N Drug/Latex Allergies/Reactions N Blood Transfusion N Dermatologic Disorders N Lung Disease N Defects or Inherited Disease N Breast Problem N Gestational Diabetes N Hematologic disorders N Anesthesia Complications N History of STI N Deep Vein Thrombosis N Polycystic ovary syndrome Y Anxiety Disorder Y Autoimmune disease N Arthritis N Infertility N Polyps N Acid Reflux (GERD) N History of abnormal pap N Cancer N Stroke N Varicosities N Neurologic/Epilepsy N Endometriosis N High Cholesterol N Headaches N Fibromyalgia N Kidney Disease N Heart Problems N Kidney or Bladder Problems N Thyroid Problems N GI Problems N Eating Disorder [...] SNOMED-CT Code Diagnosis ICD10 Code Diagnosis Note [id number] Kimmie Alfred [place] [address] [address] 01/21/2021 15:23:43 01/21/2021 17:25:38 Hypertensive disorder 05800533 I10 Gynecologi c examination 18199275 Z01.419 Z11.3 Z11.8 Take Calcium with Vitamin [...] paper copy of today's plan if desired. [id number] SUSANNA Valera [place] [address] [address] 04/13/2022 12:05:47 04/13/2022 14:01:57 Polycystic ovary syndrome 351329856 E28.2 Gynecologi c examination 21330143 Z01.419 Take Calcium with Vitamin D 1200mg [...] interested in the weight management program at [facility], she will schedule an appointmen tBP today 136/90, encouraged her to schedule an appointmen t with PCP for BP check. No symptomsRT C in 1 year for WWE or sooner if needed [id number] SUSANNA Valera [place] [address] [address] 05/15/2022 10:35:32 05/15/2022 11:53:02 Obesity 967750003 E66.9 26yo H1Vipoilgm for initial weight management consultati onShe has [...] food on my fitness pal-Andrés evans with straddle bug- We discussed anxiety in-depth. Most of her [...] and review of plan of care. Anxiety 56218658 F41.9 Family his tory of Obesity 826201623 Z83.49 [id number] SUSANNA [place] [address] [address] 05/29/2022 12:20:31 05/29/2022 13:15:42 Obesity 045204988 E66.9 Doing very well since ERIN, has [...] counseling and review of plan of care. [id number] SUSANNA Valera [place] [address] [address] 06/05/2022 12:40:19 06/05/2022 14:13:06 Obesity 084235773 E66.9 Doing very well since ERIN, has lost 18lbs with diet and exercise alone!We discussed weight management medication options in-depthSh e would like to hold off on starting any weight management medication s at this timeContin ue with exercise!C ontinue following with straddle bug! Doing well!RTC for f/u in 4 weeks Time spent in visit is a total of 20 mins with at least 50% of visit consisting of counseling and review of plan of care. [id number] Gabby Metcalf [place] [address],[place] [address] 09/15/2022 14:20:34 09/15/2022 15:03:01 [id number] Kimmie Lehungselena [place] [address] [address] 09/15/2022 14:22:07 09/16/2022 12:23:16 Amenorrhea 14314738 N91.2 Gynecologi c examination 54192696 Z01.419 Z11.3 test positive 462708395 Z32.01 Risk factors addressed: Tobacco Cessation, Safe [...] pertension complicating AND/OR reason for care during 21359005 O16.9 Doing well on Labetalol. Instructed to start a baby aspirin daily. Anticipate additional labs and testing. [id number] [facility] [address],[place] [address] 10/02/2022 10:28:30 10/02/2022 11:16:16 [id number] Gabyb Metcalf [place] [address],[place] [address] 10/21/2022 11:31:16 10/21/2022 12:11:52 screening 868513351 Z36.82 [id number] Linda Chu MD [place] [address],[place] [address] 10/21/2022 11:34:25 10/22/2022 15:05:02 Routine care 038257769 Z34.91 Chronic hy pertension in obstetric context 7140236 O16.9 Severe obe sity complicating 6944543681 3519993 O99.211 Anxiety in 093 7193499 9109 F41.9 [id number] Trudi Leonard [facility] [address] [place] [address] 11/20/2022 16:55:40 11/20/2022 17:35:41 Routine care 676692624 Z34.92 [id number] [facility] [address] [place] [address] 11/27/2022 12:29:29 11/27/2022 14:05:15 Routine care 009006306 Z34.92 [id number] [facility] [address] [place] [address] 12/16/2022 09:32:32 12/16/2022 12:29:50 Routine care 047510253 Z34.92 [id number] [facility] [address],[place] [address] 12/16/2022 09:33:05 12/16/2022 10:49:58 screening for malformation 246843524 Z36.3 [id number] [facility] [address],[place] [address] 12/25/2022 14:37:44 12/25/2022 15:59:42 Traumatic injury during 032076868 Z3A.21 [id number] [facility] [address],[place] [address] 01/13/2023 15:27:05 01/13/2023 16:45:06 screening 421729692 Z36.2 [id number] Linda Chu MD [place] [address],[place] [address] 01/13/2023 15:27:28 01/13/2023 17:31:26 Chronic hypertension in obstetric context 7627531 O16.9 Hypothyroidism 77119248 E03.9 Severe obe sity complicating 3789869581 6967554 O99.211 Anomaly of placenta 3355 2004 O43.109 Candidal intertrigo 2661 60048 B37.2 [id number] Trudi Leonard CNM [place] [address],[place] [address] 02/10/2023 10:09:15 02/10/2023 10:45:04 Routine care 776341501 Z34.92 [id number] Trudi Leonard CNM [place] [address] [place] [address] 02/24/2023 16:58:37 02/24/2023 18:22:28 Routine care 021125227 Z34.92 [id number] Denia Delgadillo [place] [address] [place] [address] 02/24/2023 16:57:23 02/25/2023 13:51:19 Marginal insertion of umbilical cord 86654793 O43.129 O16.9 O99.213 Z3A.30 [id number] [facility] [address],[place] [address] 03/12/2023 09:08:56 03/12/2023 10:52:09 Chronic hypertension complicating AND/OR reason for care during 68530572 O16.9 O99.210 Z3A.32 [id number] [facility] [address],[place] [address] 03/12/2023 09:09:14 03/12/2023 10:51:50 Severe obesity complicating 0282112429 3404029 O99.213 [id number] [facility] [address],[place] [address] 03/12/2023 09:09:37 03/12/2023 10:56:02 Routine care 449818161 Z34.92 [id number] [facility] [address],[place] [address] 03/19/2023 09:11:41 03/19/2023 10:37:12 Chronic hypertension complicating AND/OR reason for care during 20398560 O16.9 O99.210 Z3A.33 [id number] [facility] [address] [address] 03/19/2023 09:12:31 03/19/2023 09:59:29 Chronic hypertension complicating AND/OR reason for care during 81347895 O16.9 O99.210 Z3A.33 [id number] [facility] [address] [address] 03/19/2023 09:12:49 03/19/2023 10:57:22 Routine care 633871891 Z34.92 [id number] [facility] [address] [place] [address] 03/26/2023 10:00:39 03/26/2023 11:35:10 Routine care 970316699 Z34.92 [id number] Lisa Joelle [place] [address] [address] 03/26/2023 10:14:52 03/26/2023 11:36:16 Chronic hypertension complicating AND/OR reason for care during 35355990 O16.9 O99.210 Z3A.33 [id number] Denia Delgadillo [place] [address] [address] 03/26/2023 10:14:52 03/26/2023 11:36:16 Chronic hypertension complicating AND/OR reason for care during 68749181 O16.9 O43.109 Z3A.34 [id number] [facility] [address] [address] 04/02/2023 09:16:13 04/02/2023 09:41:40 Chronic hypertension complicating AND/OR reason for care during 88959673 O16.9 O99.210 Z3A.35 [id number] Michelle Luevano [place] [address] [address] 1 04/02/2023 09:16:42 04/02/2023 12:16:36 Chronic hypertension in obstetric context 1181064 O16.9 [id number] [facility] [address],[place] [address] 04/02/2023 09:17:01 04/02/2023 12:17:31 Routine care [id number] Z34.92 [id number] Nevaeh [facility] [address],[place] [address] 1 04/09/2023 09:12:17 04/09/2023 09:50:34 Chronic hypertension complicating AND/OR reason for care during 15218237 O16.9 O99.210 Z3A.36 [id number] Shelbi Fitzgerald [place] [address],[place] [address] 1 04/09/2023 09:12:37 04/09/2023 11:44:26 Chronic hypertension complicating AND/OR reason for care during 91856643 O16.9 O99.210 Z3A.36 [id number] MARGARETTE TOPETE MD [place] [address],[place] [address] 1 04/09/2023 09:12:56 04/09/2023 11:44:02 Routine care 305820696 Z34.93 [id number] Denia Delgadillo [place] [address],[place] [address] 1 04/16/2023 09:11:49 04/16/2023 10:14:25 Placenta circumvallata 5953833 O43.113 O16.9 O99.213 Z3A.37 [id number] Michelle Luevano [place] [address],[place] [address] 1 04/16/2023 09:12:54 04/16/2023 14:44:11 Chronic hypertension in obstetric context 6398236 O16.9 [id number] Trudi Leonard CNM [place] [address],[place] [address] 1 04/16/2023 09:13:18 04/16/2023 10:43:41 Routine care 656990520 Z34.93 [id number] Crow Dale MD [place] [address],[place] [address] 1 04/30/2023 10:27:53 04/30/2023 11:23:13 Postoperative care 952314764 Z48.89 This patient is a 27-year-ol d female who presents for postop follow-up. She is 1 week postop from a delivery. Her incision is clean dry and intact. She has no complaints . Her bleeding is minimal. She denies any nausea, vomiting, fever, chills. She denies any chest pain or shortness of breath. Her baby is doing well. Her mood is good. [id number] Corw Dale MD [place] [address],[place] [address] 1 05/05/2023 17:46:03 05/06/2023 14:14:56 Complication of obstetrical surgical wound 38671792 O90.89 27-YEAR-OL D FEMALE PRESENTS FOR OBSTETRICA [...] follow-up in 3 weeks for routine . [id number] Crow Dale MD [place] [address],[place] [address] 05/27/2023 14:54:02 05/27/2023 15:34:31 care 510007246 Z39.2 27-year-ol d female presents for follow-up. She is breastfeed ing, she is not bleeding, she would like Nexplanon for contracept ion. Her baby is doing well. Her mood is good. She is not had sex she will return in 2-3 months for well-woman . She will return for Nexplanon 1 week. [id number] Crow Dale MD [place] [address],[place] [address] 06/02/2023 15:55:14 06/02/2023 16:28:15 Contraception care management 700226745 Z30.9 Nexplanon inserted without complicati ons. [id number] Crow Dale MD [place] [address],[place] [address] 07/05/2024 15:24:13 07/05/2024 16:18:33 Contraception care management 614840184 Z30.9 Patient is a 28-year-ol d female [...] Ball Member ID Guarantor Name 04/30/2023 1 [facility] [id number] Kenny Castillo [id number] [facility] 04/30/2023 1 [place] [facility] [id number] [facility] 05/05/2023 1 [facility] [id number] Kenny Castillo [id number] [facility] 05/05/2023 1 [place] [facility] [id number] [facility] 05/27/2023 1 [facility] [id number] Kenny Castillo [id number] [facility] 05/27/2023 1 [place] [facility] [id number] [facility] 06/02/2023 1 [facility] [id number] Kenny Castillo [id number] [facility] 06/02/2023 1 [place] [facility] [id number] [facility] 07/05/2024 1 [facility] (MEDICAID HMO) [id number] [facility] [id number] [facility] Notes Date Note Type Note Provider [...] good. Crow Dale MD [address], [place], [address], [facility] 04/30/2023 11:23:03 05/05/2023 text/html 27-YEAR-OLD FEMA [...] . Crow Dale MD [address], [place], [address], [facility] 05/05/2023 18:38:12 05/27/2023 text/html 27-year-old femray evans presents for follow-up. She is , she is not bleeding, she would like Nexplanon for contraception. Her baby is doing well. Her mood is good. She is not had sex she will return in 2-3 months for well-woman. She will return for Nexplanon 1 week. Crow Dale MD [address], [place], [address], [facility] 05/27/2023 15:33:53 06/02/2023 text/html patient presents for Nexplanon insertion Crow Dale MD [address], [place], [address], [facility] 06/02/2023 16:26:48 07/05/2024 text/html Patient is a 28-year-old female with a recent Nexplanon insertion. She had concern about movement of the Nexplanon. It is at the site where her insertion scar is. It does not appear to have moved. It is palpable. She was given reassurance. She will contact us with any problems. Crow Dale MD [address], [place], [address], [facility] 07/05/2024 16:12:36 OBGyn Episode Ob Episode Information Episode Created Date Number of Fetuses Patient Bloodtype Patient rh Status Prepregnancy Weight lbs Domestic Partner Domestic Partner Phone Father Name Associate Of Science In Nursing Status 10/22/19 1 A Positive 295 CLOSED Fetus Data First Name Last Name Admitted to NICU Weight (g) Sex Living Outcome Pediatric Complications Fetus ID Race Codes Race Delivery Type 2919.99 85 F true Full Term failure to descend, arrest of dilation 75092 Primary Problems Problem Notes chorionic bump - 01/27/23 945 A u/s and ov Problem Name Start Date End Date Resolution Snomed Code Not e Severe obesity complicating [id number] BMI 46 Chronic hypertension in obstetric context 0484677 Anemia 03/12/2023 MEDICATION 560899569 1 tab sl owfe BID Hypothyroidism 10/26/2022 58220159 11/23 increased to 50 levo, rpt 4-6 wks Anxiety in [id number] [id number] Subchorionic hematoma 903024528 SUBAMNIOTIC HEM 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 33422068 Seferino Calculation Initial Seferino Date Initial Exam Date Initial Exam Provider Initial Ultrasound Date Last Menstrual Period Date Ultra Sound Weeks Gestation 05/03/2023 10/21/2022 09/15/2022 7 Eighteen To Twenty Week Seferino Update Ultra Sound Date Fundal Height At Umbil Quickening Date Ultra Sound Latest Weeks Gestation Final Seferino Confirmed By Final Seferino Confirmed Date Final Seferino Date Ultra Sound Latest Days Gestation 0 [email or web address] 10/21/2022 05/03/20 0 Pre-kanwal Flowsheet Flowsheet Date 10/21/2022 Marinelli Score Blood Edema Fundus Height Fundus Units Glucose Ketones Leukocytes Nitrite Labor Signs Protein Cervic Dilation Cervic Effacement Cervic Station neg none none trace Type Weight in lbs Pre/Post Dialysis Refused Weight 300.761574620197 BP Diastolic BP Location Tested BP Systolic [...] Weight in lbs Pre/Post Dialysis Refused Weight 312.118091459825 BP Diastolic BP Location Tested BP Systolic [...] Weight in lbs Pre/Post Dialysis Refused Weight 311.158213955959 BP Diastolic BP Location Tested BP Systolic [...] Weight in lbs Pre/Post Dialysis Refused Weight 320.984512134811 BP Diastolic BP Location Tested BP Systolic BP Type 80 132 Fetus Heart Rate Present Fetus Movement A Yes Comments patient states that eye is t witching, nausea and vomiting. anatomy incomplete, MCI, circumvallate , reviewed , reviewed precautions, education done, planning bard/diedrikson for peds, planning classes at [facility] Flowsheet Date 12/25/2022 Marinelli Score Blood Edema [...] Weight in lbs Pre/Post Dialysis Refused Weight 323.564070173045 BP Diastolic BP Location Tested BP Systolic [...] Weight in lbs Pre/Post Dialysis Refused Weight 333.006824207956 BP Diastolic BP Location Tested BP Systolic [...] Weight in lbs Pre/Post Dialysis Refused Weight 329.605436751187 BP Diastolic BP Location Tested BP Systolic [...] Weight in lbs Pre/Post Dialysis Refused Weight 328.21069495882 BP Diastolic BP Location Tested BP Systolic [...] Weight in lbs Pre/Post Dialysis Refused Weight 334.082443477528 BP Diastolic BP Location Tested BP Systolic [...] Weight in lbs Pre/Post Dialysis Refused Weight 328.12480353696 BP Diastolic BP Location Tested BP Systolic [...] Weight in lbs Pre/Post Dialysis Refused Weight 330.196878244882 BP Diastolic BP Location Tested BP Systolic [...] Weight in lbs Pre/Post Dialysis Refused Weight 334.55323037774 BP Diastolic BP Location Tested BP Systolic [...] Weight in lbs Pre/Post Dialysis Refused Weight 332.594460269526 BP Diastolic BP Location Tested BP Systolic [...] Weight in lbs Pre/Post Dialysis Refused Weight 324.669375641124 BP Diastolic BP Location Tested BP Systolic [...] Estim ated Date of Delivery false Thalassemia (Salvadorean, Indonesian, Mediterranean, Or Background): MCV < 80 false Neural Tube Defect (Meningomyelocele, Spina Bifi da, Or Anencephaly) false Congenital Heart Defect false Down Syndrome false Brayden-Sachs (eg, Samaritan, Cajun, Monegasque-Paterson) f alse Aleena Disease false Sickle Cell Disease Or Trait () false Hemophilia Or Other Blood Disorders false Muscular Dystrophy false Cystic Fibrosis false [place]'s Chorea false Intellectual Disability/Autism false If Yes, [...]
--- OUTSIDE RECORDS SUMMARY | 2024-08-31 12:11 | XMS_ITS | Clinical Summary ---
Author Organization [facility] Bianka Gonzalez Address [address] [place] [address] Care Team Providers Care Water Plumber Name Role Phone Unavailable Primary Care Provider Unavailabl e Allergies No known active allergies Medications escitalopram oxalate (LEXAPRO) 20 mg tablet Take 20 mg by mouth daily. Active metFORMIN (GLUCOPHAGE XR) 500 mg Extended Release 24 hour tablet Take 500 mg by mouth daily with breakfast. Active lisinopriL (PRINIVIL) 40 mg tablet Take 40 mg by mouth daily. Active Trulicity 0.75 mg/0.5 mL injection Inject 0.75 mg by subcutaneous injection every 7 days. Active CALCIUM CARBONATE-VITAM IN D3 ORAL Take by mouth. Acti ve etonogestreL (Nexplanon) 68 mg Implant Inject 68 mg by subcutaneous injection one time only. Active Active Problems No known active problems Encounters Date Type Department Care Team Description 08/30/2024 Orders Only [facility] - [place] [address] [place] [address] Jonathon Ordonez MD 08/29/2024 Orders Only [facility] [place] [address] [place] [address] Jonathon Ordonez MD 08/25/2024 Orders Only [facility] [place] [address] [place] [address] Jonathon Ordonez MD 08/24/2024 External Device Data STL ABSTRACTION Provider, Abstract 08/24/2024 Orders Only [facility] [place] [address] [place] [address] Jonathon Ordonez MD 08/23/2024 External Device Data STL ABSTRACTION Provider, Abstract 08/22/2024 External Device Data ST[facility] ABSTRACTION Provider, Abstract 08/16/2024 External Device Data STL ABSTRACTION Provider, Abstract 08/03/2024 Telephone [facility] [address] [place] [address] Lissette Martins MD Lab Auth 08/03/2024 Abstract [facility] [address] [place] [address] Lissette Martins MD 08/01/2024 External Device Data STL ABSTRACTION Provider, Abstract 07/28/2024 2:30 PM PACKAGE HANDLER Office Visit [facility] [address] [place] [address] Lissette Martins MD Leukocytosis, unspecified type (Primary Dx); Iron deficiency anemia, unspecified iron deficiency anemia type from Last 3 Months Family History Medical History Relation Name Comments No Known Problems Brother No Known Problems Child Diabetes Father No Known Problems Mother Relation Name Status Comments Brother Alive Child Alive Father Alive Mother Alive Social History Tobacco Use Types Packs/Day Years Used Date Smoking Tobacco: Never Smokeless Tobacco: Never Alcohol Use Standard Drinks/Week Comments Yes 0 (1 standard drink = 0.6 oz pur e alcohol) Occasionally Comments Unknown Sex and Gender Information Value Date Recorded Sex Assigned at Not on file Legal Sex Female 10:24 AM PACKAGE HANDLER Gender Identity Not on file Sexual Orientation Not on file Last Filed Vital Signs Vital Sign Reading Time Taken Comments Blood Pressure 132/69 07/28/2024 2:32 PM PACKAGE HANDLER Pulse 80 07/28/2024 2:32 PM PACKAGE HANDLER Temperature 36.6 ??C (97.8 ??F) 07/28/2024 2:32 PM CS T Respiratory Rate 16 07/28/2024 2:32 PM PACKAGE HANDLER Oxygen Saturation 96% 07/28/2024 2:32 PM PACKAGE HANDLER Inhaled Oxygen Concentration - - Weight 149.7 kg (330 lb) 07/28/2024 2:32 PM PACKAGE HANDLER Height 172.7 cm (5' 8 ) 07/28/2024 2:32 PM PACKAGE HANDLER Body Mass Index 50.18 07/28/2024 2:32 PM PACKAGE HANDLER Plan of Treatment Upcoming Encounters Date Type Department Care Team (Late st Contact Info) Description 09/07/2024 4:30 PM PACKAGE HANDLER Telephone Check Up [facility] - [place] [address] [facility] [address] [place] [address] Jonathon Ordonez MD [address] [facility] [address] [place] [address] Health Maintenance Due Date Last Done Comments HPV VACCINES (1 - 3-dose series) 2012 DTAP/TDAP/TD VACCINES (1 - Tdap) 2016 HEPATITIS B VACCINES (1 of 3 - 19+ 3-dose series) 09/02 CERVICAL CANCER SCREENING 2018 INFLUENZA VACCINE (#1) 2024 Preventative Visit-Managed Medicaid 05/13/202505/12 Procedures Procedure Name Priority Date/Time Associated Diagnosis Comments RETICULOCYTES Routine 08/23/2024 4:25 PM PACKAGE HANDLER IRON PANEL Routine 08/23/2024 4:00 PM PACKAGE HANDLER BCR/ABL DIAGNOSTIC ASSAY W/REFLEX Routine 08/23/2024 3:15 PM PACKAGE HANDLER IRON, TIBC, AND PERCENT SATURATION Routine 08/23/2024 1:12 PM PACKAGE HANDLER FLOW CYTOMETRY REPORT Routine 08/23/2024 11:38 AM PACKAGE HANDLER from Last 3 Months Results * RETICULOCYTES (08/23/2024 4:25 PM PACKAGE HANDLER) Blood us Jonathon Ordonez MD HEMATOLOGY ORDERABLES Final Res ult * IRON PANEL (08/23/2024 4:00 PM PACKAGE HANDLER) Blood us Jonathon Ordonez MD CHEMISTRY ORDERABLES Final Resu lt * BCR/ABL DIAGNOSTIC ASSAY W/REFLEX (08/23/2024 3:15 PM PACKAGE HANDLER) us Jonathon Ordonez MD BODY FLUIDS AND STOOLS Final Re sult * IRON, TIBC, AND PERCENT SATURATION (08/23/2024 1:12 PM PACKAGE HANDLER) Blood us Jonathon Ordonez MD CHEMISTRY ORDERABLES Final Resu lt * FLOW CYTOMETRY REPORT (08/23/2024 11:38 AM PACKAGE HANDLER) us Jonathon Ordonez MD PATHOLOGY/CYTOLOGY ORDERABLES F inal Result from Last 3 Months Insurance [employer] [facility] Address: [address] [address]
--- OUTSIDE RECORDS SUMMARY | 2024-08-31 12:11 | XMS_ITS | Data Portability ---
Author Organization [place] [facility] [employer], Main Office Address [address] [place] [address] Assessment Encounter Date Assessment Date Assessment LastModified [...] available Lab CMP, serum or plasma 2023 [facility] (Lab), [address] [place], [address], 05/12/2024 20:46:16 CBC w/ auto diff [address] (Lab), [address] [place], [address], 05/19/2024 08:02:26 lipid panel, serum [address] (Lab), [address] [place], [address], 05/19/2024 08:02:26 glycohemo globin, total, blood [address] (Lab), [address] [place], [address], 05/19/2024 08:02:26 TSH, serum or plasma [address] (Lab), [address] [place], [address], 05/19/2024 08:02:26 vitamin D, 25-hydrox y, total, serum [address] (Lab), [address] [place], [address], 05/19/2024 08:02:27 iron + total iron-bind ing capacity (TIBC), serum [address] (Lab), [address] [place], [address], 05/19/2024 08:02:27 CBC w/ auto diff 2023 024 [facility] (Lab), [address] [place], [address], 06/13/2024 20:48:03 iron + total iron-bind ing capacity (TIBC), serum [address] (Lab), [address] [place], [address], 06/20/2024 08:30:24 vitamin B12 + folate, serum or blood [address] (Lab), [address] [place], [address], 06/20/2024 08:30:24 Referral None recorded. Procedures None recorded. Surgeries None recorded. Imaging US, thyroid - Please call pt to schedule 2024 025 [facility] (One Call Scheduling), [address] [place], [address], 08/23/2024 09:32:41 Medication Orders escitalop tasha 20 mg tablet 10/11/ 2024 10/11/2 024 [facility][id number], [address], [place], [place], [id number], 05/12/2024 14:42:15 Trulicity 0.75 mg/0.5 mL subcutane ous pen injector [address] [facility] #66854, [address], [place], [place], [id number], 08/18/2024 15:00:53 lisinopri l 40 mg tablet 2023 024 [facility] #36511, [address], [place], [place], [id number], 06/13/2024 15:56:56 Trulicity 3 mg/0.5 mL subcutane ous pen injector 2024 025 [facility] #47613, [address], [place], [place], [id number], 08/18/2024 15:19:16 lisinopri l 20 mg tablet 2024 025 [facility] #26991, [address], [place], [place], [id number], 08/18/2024 15:19:17 Patient TargetsNo targets recorded. Patient InstructionsNo instructions recorded. Reason for Referral None Reported. Results Created Date Observation Date Name Description Value Unit Range Abnormal Flag Note LastModifiedBy Organization Detail LastModifiedTime 08/13/1908/14/2021 HEMOG LOBIN A1C hemoglobin A1C 5.4 %_of_ total _HGB <5.7 normal Not Available [facility] [address] [place], [address], 08/14/2021 09:57:12 08/13/1908/14/2021 VITAM IN D,25- OH,TO RADHA,I A vitamin D,25-oh,tota l,ia 17 NG/mL 30-100 [...] /MS is recom shane d: order code 18954 (jamil ents >2yrs ). See Note 1 Note 1 For addit ional infor renae kelly refer to http: //[facility] corey mendez.Feroz stDia gnost ics.c om/fa q/FAQ 199 (This link is being provi ded for infor makayla vega/ promise roy purpo ses only. ) Not Available [facility] [address] [place], [address], 08/14/2021 09:57:12 08/13/19 22 08/14/2021 T4, FREE T4, free 1.2 NG/dL 0.8-1. 8 normal Not Available [facility] [address] [place], [address], 08/14/2021 09:57:11 08/13/19 22 08/14/2021 TSH W/REF ANAMIKA TO FT4 TSH w/reflex to FT4 8.18 mIU/L high Refer ence Range > or = 20 Years 0.40- 4.50 Pregn stormy Range s First trime ster 0.26- 2.66 Secon d trime ster 0.55- 2.73 Third trime ster 0.43- 2.91 Not Available [facility] [address] [place], [address], 08/14/2021 09:57:11 08/13/19 22 08/14/2021 CBC (INCL UDES DIFF/ PLT) white blood cell count 7.0 thous and/u L 3.8-10 .8 normal Not Available [address], [address], 08/14/2021 09:57:10 08/13/19 22 08/14/2021 CBC (INCL UDES DIFF/ PLT) red blood cell count 5.36 peggy on/uL 3.80-5 .10 high Not Available [address], [address], 08/14/2021 09:57:10 08/13/1908/14/2021 CBC (INCL UDES DIFF/ PLT) hemoglobin 12.0 g/dL 11.7-1 5.5 normal Not Available [address], [address], 08/14/2021 09:57:10 08/13/1908/14/2021 CBC (INCL UDES DIFF/ PLT) hematocrit 39.2 % 35.0-4 5.0 normal Not Available [address], [address], 08/14/2021 09:57:10 08/13/19 22 08/14/2021 CBC (INCL UDES DIFF/ PLT) MCV 73.1 fL 80.0-1 00.0 low Not Available [address], [address], 08/14/2021 09:57:10 08/13/19 22 08/14/2021 CBC (INCL UDES DIFF/ PLT) MCH 22.4 pg 27.0-3 3.0 low Not Available [address], [address], 08/14/2021 09:57:10 08/13/1908/14/2021 CBC (INCL UDES DIFF/ PLT) MCHC 30.6 g/dL 32.0-3 6.0 low Not Available [address], [address], 08/14/2021 09:57:10 08/13/19 22 08/14/2021 CBC (INCL UDES DIFF/ PLT) RDW 15.7 % 11.0-1 5.0 high Not Available [address], [address], 08/14/2021 09:57:10 08/13/19 22 08/14/2021 CBC (INCL UDES DIFF/ PLT) platelet count 384 thous and/u L 140-40 0 normal Not Available [address], [address], 08/14/2021 09:57:10 08/13/1908/14/2021 CBC (INCL UDES DIFF/ PLT) MPV 9.6 fL 7.5-12 .5 normal Not Available [address], [address], 08/14/2021 09:57:10 08/13/19 22 08/14/2021 CBC (INCL UDES DIFF/ PLT) absolute neutrophils 2870 cells /uL 1500-7 800 normal Not Available [address], [address], 08/14/2021 09:57:10 08/13/19 22 08/14/2021 CBC (INCL UDES DIFF/ PLT) absolute lymphocytes 3318 cells /uL 850-39 00 normal Not Available [address], [address], 08/14/2021 09:57:10 08/13/19 22 08/14/2021 CBC (INCL UDES DIFF/ PLT) absolute monocytes 686 cells /uL 200-95 0 normal Not Available [address], [address], 08/14/2021 09:57:10 08/13/19 22 08/14/2021 CBC (INCL UDES DIFF/ PLT) absolute eosinophils 98 cells /uL 15-500 normal Not Available [address], [address], 08/14/2021 09:57:10 08/13/19 22 08/14/2021 CBC (INCL UDES DIFF/ PLT) absolute basophils 28 cells /uL 0-200 normal Not Available [facility] [address], [address], 08/14/2021 09:57:10 08/13/19 22 08/14/2021 CBC (INCL UDES DIFF/ PLT) neutrophils 41 % normal Not Available [facility] [address], [address], 08/14/2021 09:57:10 08/13/19 22 08/14/2021 CBC (INCL UDES DIFF/ PLT) lymphocytes 47.4 % normal Not Available [facility] [address], [address], 08/14/2021 09:57:10 08/13/19 22 08/14/2021 CBC (INCL UDES DIFF/ PLT) monocytes 9.8 % normal Not Available [facility] [address], [address], 08/14/2021 09:57:10 08/13/19 22 08/14/2021 CBC (INCL UDES DIFF/ PLT) eosinophils 1.4 % normal Not Available [facility] [address], [address], 08/14/2021 09:57:10 08/13/19 22 08/14/2021 CBC (INCL UDES DIFF/ PLT) basophils 0.4 % normal Not Available [facility] [address], [address], 08/14/2021 09:57:10 08/13/19 22 08/14/2021 COMPR EHENS MISAEL METAB OLIC PANEL glucose 81 mg/dL 65-99 normal Fasti ng refer ence inter lydia Not Available [address], [address], 08/14/2021 09:57:09 08/13/19 22 08/14/2021 COMPR EHENS MISAEL METAB OLIC PANEL urea nitrogen (BUN) 10 mg/dL 7-25 normal Not Available [address], [address], 08/14/2021 09:57:09 08/13/19 22 08/14/2021 COMPR EHENS MISAEL METAB OLIC PANEL creatinine 0.59 mg/dL 0.50-1 .10 normal Not Available [address], [address], 08/14/2021 09:57:09 08/13/19 22 08/14/2021 COMPR EHENS MISAEL METAB OLIC PANEL eGFR non-afr. citizen of [place] 129 mL/mi n/1.7 3m2 > or = 60 normal Not Available [address], [address], 08/14/2021 09:57:09 08/13/19 22 08/14/2021 COMPR EHENS MISAEL METAB OLIC PANEL eGFR 150 mL/mi n/1.7 3m2 > or = 60 normal Not Available [address], [address], 08/14/2021 09:57:09 08/13/19 22 08/14/2021 COMPR EHENS MISAEL METAB OLIC PANEL BUN/creatini ne ratio not applic able (calc ) 6-22 Not Available [address], [address], 08/14/2021 09:57:09 08/13/19 22 08/14/2021 COMPR EHENS MISAEL METAB OLIC PANEL sodium 139 mmol/ L 135-14 6 normal Not Available [address], [address], 08/14/2021 09:57:09 08/13/19 22 08/14/2021 COMPR EHENS MISAEL METAB OLIC PANEL potassium 4.5 mmol/ L 3.5-5. 3 normal Not Available [address], [address], 08/14/2021 09:57:09 08/13/19 22 08/14/2021 COMPR EHENS MISAEL METAB OLIC PANEL chloride 103 mmol/ L 98-110 normal Not Available [address], [address], 08/14/2021 09:57:09 08/13/1908/14/2021 COMPR EHENS MISAEL METAB OLIC PANEL carbon dioxide 27 mmol/ L 20-32 normal Not Available [address], [address], 08/14/2021 09:57:09 08/13/19 22 08/14/2021 COMPR EHENS MISAEL METAB OLIC PANEL calcium 9.3 mg/dL 8.6-10 .2 normal Not Available [address], [address], 08/14/2021 09:57:09 08/13/1908/14/2021 COMPR EHENS MISAEL METAB OLIC PANEL protein, total 7.5 g/dL 6.1-8. 1 normal Not Available [address], [address], 08/14/2021 09:57:09 08/13/19 22 08/14/2021 COMPR EHENS MISAEL METAB OLIC PANEL albumin 4.5 g/dL 3.6-5. 1 normal Not Available [address], [address], 08/14/2021 09:57:09 08/13/19 22 08/14/2021 COMPR EHENS MISAEL METAB OLIC PANEL globulin 3.0 g/dL_ (calc ) 1.9-3. 7 normal Not Available [address], [address], 08/14/2021 09:57:09 08/13/19 22 08/14/2021 COMPR EHENS MISAEL METAB OLIC PANEL albumin/glob ulin ratio 1.5 (calc ) 1.0-2. 5 normal Not Available [address], [address], 08/14/2021 09:57:09 08/13/19 22 08/14/2021 COMPR EHENS MISAEL METAB OLIC PANEL bilirubin, total 0.7 mg/dL 0.2-1. 2 normal Not Available [address], [address], 08/14/2021 09:57:09 08/13/19 22 08/14/2021 COMPR EHENS MISAEL METAB OLIC PANEL alkaline phosphatase 66 U/L 31-125 normal Not Available [address], [address], 08/14/2021 09:57:09 08/13/19 22 08/14/2021 COMPR EHENS MISAEL METAB OLIC PANEL AST 16 U/L 10-30 normal Not Available [address], [address], 08/14/2021 09:57:09 08/13/19 22 08/14/2021 COMPR EHENS MISAEL METAB OLIC PANEL ALT 15 U/L 6-29 normal Not Available [address], [address], 08/14/2021 09:57:09 08/13/19 22 08/14/2021 LIPID PANEL , STAND KORI non HDL cholesterol 141 mg/dL _(rama c) <130 high For patie nts with diabe kristine plus 1 major ASCVD risk facto r, treat ing to a non-H DL-C goal of <100 mg/dL (LDL- C of <70 mg/dL ) is jake alejandro optio n. Not Available [address] [address] [place], [address], 08/14/2021 09:57:09 08/13/19 22 08/14/2021 LIPID PANEL , STAND KORI cholesterol, total 173 mg/dL <200 normal Not Available [facility] [address] [address] [place], [address], 08/14/2021 09:57:09 08/13/19 22 08/14/2021 LIPID PANEL , STAND KORI HDL cholesterol 32 mg/dL > or = 50 low Not Available [address], [address], 08/14/2021 09:57:09 08/13/19 22 08/14/2021 LIPID PANEL , STAND KORI triglyceride s 168 mg/dL <150 high Not Available [facility] [address], [address], 08/14/2021 09:57:09 08/13/1908/14/2021 LIPID PANEL , STAND [...] 2068 (http ://ed ucati on.Qu estDi agnos [employer]. com/f aq/FA Q164) Not Available [address], [address], 08/14/2021 09:57:09 08/13/19 22 08/14/2021 LIPID PANEL , STAND KORI chol/HDLC ratio 5.4 (calc ) <5.0 high Not Available [address], [address], 08/14/2021 09:57:09 08/13/19 22 08/14/2021 IRON, TIBC AND KYLE TIN PANEL iron, total 74 mcg/d L 40-190 normal Not Available [address], [address], 08/14/2021 09:57:08 08/13/1908/14/2021 IRON, TIBC AND KYLE TIN PANEL iron binding capacity 443 mcg/d L_(ca lc) 250-45 0 normal Not Available [address], [address], 08/14/2021 09:57:08 08/13/19 22 08/14/2021 IRON, TIBC AND KYLE TIN PANEL % saturation 17 %_(ca lc) 16-45 normal Not Available [address], [address], 08/14/2021 09:57:08 08/13/1908/14/2021 IRON, TIBC AND KYLE TIN PANEL ferritin 16 NG/mL 16-154 normal Not Available [address], [address], 08/14/2021 09:57:08 10/12/19 22 10/12/2021 TSH TSH 4.06 mIU/L normal Refer ence Range > or = 20 Years 0.40- 4.50 Pregn stormy Range s First trime ster 0.26- 2.66 Secon d trime ster 0.55- 2.73 Third trime ster 0.43- 2.91 Not Available [address], [address], 10/12/2021 12:35:36 10/12/19 22 10/12/2021 T4, FREE T4, free 1.0 NG/dL 0.8-1. 8 normal Not Available [address], [address], 10/12/2021 12:35:35 10/12/19 22 10/12/2021 LIPID PANEL , STAND KORI cholesterol, total 179 mg/dL <200 normal Not Available [address], [address], 10/12/2021 12:35:35 10/12/19 22 10/12/2021 LIPID PANEL , STAND KORI HDL cholesterol 35 mg/dL > or = 50 low Not Available [address], [address], 10/12/2021 12:35:35 10/12/19 22 10/12/2021 LIPID PANEL , STAND KORI triglyceride s 127 mg/dL <150 normal Not Available [address], [address], 10/12/2021 12:35:35 10/12/19 22 10/12/2021 LIPID PANEL [...] 310(1 9): 2061- 2068 (http ://ed ucati on.VHT shereenPerMicro. [employer]/f aq/FA Q164) Not Available [facility] [address] [address], [place], [address], 10/12/2021 12:35:35 10/12/19 22 10/12/2021 LIPID PANEL , STAND KORI chol/HDLC ratio 5.1 (calc ) <5.0 high Not Available [facility] [address] [address], [place], [address], 10/12/2021 12:35:35 10/12/19 22 10/12/2021 LIPID PANEL , STAND KORI non HDL cholesterol 144 mg/dL _(rama c) <130 high For patie nts with diabe kristine plus 1 major ASCVD risk facto r, treat ing to a non-H DL-C goal of <100 mg/dL (LDL- C of <70 mg/dL ) is consi dered a olenaa david c optio n. Not Available [facility] [address] [address], [place], [address], 10/12/2021 12:35:35 03/10/20 23 03/10/2023 US, obste tric No observ ation record ed. [id number] [facility] [address], [place], [address], 03/11/2023 07:37:18 08/23/19 25 08/23/2024 US, thyro id No observ ation record ed. [facility] [address] [facility], [place], [address], 08/23/2024 14:40:37 Result Notes None recorded. Problems Name Problem SNOMED Code Status Onset Date Resolution Date Notes Provider Name and Address Organization Details Recorded Time Morbid obesity 777480814 Active 2021 Not Available [employer] 20:41:57 Mixed hyperlipidemi a 296886458 Active 10/20/ 2022 Not Available [employer] 3 20:41:57 Adult health examination Active 2021 Not Available [facility] 3 20:41:57 Thyroid stimulating hormone level above reference range 861490862 Active 2021 Not Available [facility] 3 20:41:57 Vitamin D deficiency 77262910 Active 2021 Not Available [facility] 3 20:41:57 Obese 128953838 Active 2021 Not Available [facility] 3 20:41:58 Hyperlipidemi a 85910083 Active 2021 Not Available [facility] 3 20:41:58 Essential hypertension 74161437 Active 2021 Not Available [facility] 3 20:41:58 Iron deficiency anemia 37527369 Active 2021 Not Available [facility] 3 20:41:58 Anxiety 22332869 Active 2023 WILTON Ramsay [address], [address], [place], [address] , [employer] [facility] [employer] [facility] 4 14:31:45 Fatigue 42370920 Active 2023 WILTON Ramsay [address], [address], [place], [address] , [employer] [facility] [employer] [facility] 4 14:41:50 Prediabetes 789309653 Active 2023 WILTON Ramsay [address], [address], [place], [address] , [employer] [facility] 4 09:28:23 Anemia 303003549 Active 2023 WILTON Ramsay [address], [address], [place], [address] , [employer] - [facility] 4 15:44:11 Leukocytosis 189656156 Active [address], [place], [address] , [facility] [employer] 4 09:41:05 Alice thyroiditis 42567827 Active 2024 WILTON Ramsay [address] [facility], [facility] [address], [place], [address] , [facility] [employer] 10:19:49 Problem Notes None recorded. Procedures Surgical History Date Name Laterality Status Provider Name and Address Organization Details Recorded Time tonsilectom y/adenoids completed Not Available [employer] 09/30/2022 20:40:40 Imaging Results Imaging Date Name Status LastModified by Organiz ation Details LastModified Time 03/10/2023 US, obstetric [email or web address] [address] [facility] [address], [place], [address], 03/11/2023 07:37:18 08/23/2024 US, thyroid completed [facility] [address] [facility], [place], [address], 08/23/2024 14:40:37 Procedure Notes None recorded. Medical [...] Available Not Available lisinopril 20 mg tablet TAKE 1 TABLET BY MOUTH EVERY DAY DIRECTED active Not Available Not Available No t Available ondansetron HCl 4 mg tablet 12/01 completed Not Available Not Available Not Available prednisone 20 mg tablet 12/01 completed Not Available Not Available Not Available metronidazo le 500 mg tablet 12/01 completed Not Available Not Available Not Available levothyroxi ne 25 mcg tablet Take 1 tablet every day by oral route as directed for 90 days. active Not Available Not Available No t Available pantoprazol e 40 mg tablet,santhosh yed release [...] Not Available Not Available No t Available Ozempic 0.25 mg or 0.5 mg (2 [...] % 98 % 67.98 /min 97.39 [degF] 37468.7 7 g 142 mm[Hg] 82 mm[Hg] Not Available [facility] 3 20:41:33 Date Recorded Body mass index (BMI) Body height Oxygen saturation Oxygen saturation in Arterial blood by Pulse oximetry Heart rate Body temperature Body weight Systolic blood pressure Diastolic blood pressure Provider Name and Address Organization Details Last Updated DateTime 2 47.5 kg/m2 170.18 cm 98 % 98 % 84 /min 98.5 [degF] 748230. 49 g 144 mm[Hg] 88 mm[Hg] Not Available [facility] 3 20:41:34 Date Recorded Body weight Body mass index (BMI) Body height Body temperature Heart rate Respiratory rate Oxygen saturation Oxygen saturation in Arterial blood by Pulse oximetry Systolic blood pressure Diastolic blood pressure Provider Name and Address Organization Details Last Updated DateTime 4 688333. 24 g 51 kg/m2 172.72 cm 97.3 [degF] 88 /min 20 /min 97 % 97 % 120 mm[Hg] 70 mm[Hg] Micaela Bliss RN [facility] [employer] [facility] 4 14:18:40 Date Recorded Body height Body mass index (BMI) Body weight Body temperature Heart rate Respiratory rate Oxygen saturation Oxygen saturation in Arterial blood by Pulse oximetry Systolic blood pressure Diastolic blood pressure Provider Name and Address Organization Details Last Updated DateTime 4 172.72 cm 50.4 kg/m2 363919. 17 g 97.2 [degF] 72 /min 20 /min 98 % 98 % 164 mm[Hg] 90 mm[Hg] Micaela Bliss RN [facility] [employer] [facility] 4 15:39:48 Date Recorded Body height Body mass index (BMI) Body weight Body temperature Heart rate Respiratory rate Oxygen saturation Oxygen saturation in Arterial blood by Pulse oximetry Systolic blood pressure Diastolic blood pressure Provider Name and Address Organization Details Last Updated DateTime 5 172.72 cm 48.4 kg/m2 303042. 77 g 97.5 [degF] 105 /min 24 /min 97 % 97 % 118 mm[Hg] 66 mm[Hg] Micaela Bliss RN [facility] [employer] [facility] 5 15:03:29 Social History Question Answer Notes LastModified by Organizat ion Details LastModified Time Tobacco Smoking Status Never Smoker Not Available [facility] 09/30/2022 20:40:26 Do You Have An Advance Directive? No Information not available 05/12/2024 What Is Your Level Of Caffeine Consumption? Occasional [id number] Information not available 09/30/2022 In The 14 Days Before Symptom Onset, Have You Had Close Contact With A Laboratory-confi rmed COVID-19 While That Case Was Ill? No MIGRATION.44205 [id number] Information not available 09/30/2022 In The 14 Days Before Symptom Onset, Have You Had Close Contact With A Person Who Is Under Investigation For COVID-19 While That Person Was Ill? No MIGRATION.04038 84473 Information not available 09/30/2022 Are You Currently Employed? Yes Information not available 05/12/2024 What Type Of Diet Are You Following? SPECIFIC MIGRATION.24758 06938 Information not available 09/30/2022 Do You Or Have You Ever Used E-cigarettes Or Vape? Current User Of Electronic Cigarettes MIGRATION.00825 49115 Information not available 09/30/2022 What Is The Highest Grade Or Level Of School You Have Completed Or The Highest Degree You Have Received? 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 No MIGRATION.36768 81426 Information not available 09/30/2022 Do You Use Insect Repellent Routinely? Yes MIGRATION.78266 54923 Information not available 09/30/2022 Where Do You Live? [place]House MIGRATION.30226 [address] Information not available 09/30/2022 Do You Have A Medical Power Of Packager Machine? No Information not available 05/12/2024 How Many Children Do You Have? 1 Information not available 05/12/2024 Do You Have Any Pets? Yes MIGRATION.46699 41883 Information not available 09/30/2022 What Is Your Relationship Status? Single MIGRATION.34814 38140 Information not available 09/30/2022 Do You Use Your Seat Belt Or Car Seat Routinely? Yes MIGRATION.50565 03085 Information not available 09/30/2022 Do You Have Smoke And Carbon Monoxide Detectors In Your Home? Yes MIGRATION.15741 73138 Information not available 09/30/2022 Are You Passively Exposed To Smoke? No MIGRATION.35510 40507 Information not available 09/30/2022 Are There Any Smokers In Your House? No MIGRATION.10473 46861 Information not available 09/30/2022 Do You Participate In Social Media? Yes MIGRATION.57383 27748 Information not available 09/30/2022 Do You Feel Stressed (tense, Restless, Nervous, Or Anxious, Or Unable To Sleep At Night)? [id number] Information not available 05/12/2024 Do You Use Sunscreen Routinely? Yes MIGRATION.73057 20939 Information not available 09/30/2022 Have You Recently Traveled Abroad? No Information not available 05/12/2024 Are You Currently In School? No MIGRATION.95097 51039 Information not available 09/30/2022 Do You Have Any Dietary Restrictions? No MIGRATION.40889 72563 Information not available 09/30/2022 Sex: Female Functional Status Question Answer Note LastModified by Organizat ion Details LastModified Time What is your exercise level? Occasional [id number] Information not available 09/30/2022 Mental Status None recorded. Family History Relationship Description Onset Age of this Age Resolved Age Notes LastModified by Organization Details LastModified Time Unspecified Relation Diabetes mellitus [id number].[id number] Not available 09/30/2022 20:40:42 Unspecified Relation Family history of malignant neoplasm MIGRATION.919 [id number] Not available 09/30/2022 20:40:42 Unspecified Relation Hypertensive disorder MIGRATION.090 [id number] Not available 09/30/2022 20:40:42 Unspecified Relation Chronic obstructive pulmonary disease MIGRATION.999 [id number] Not available 09/30/2022 20:40:42 Medical History Condition Response BLINDNESS N RHEUMATIC FEVER N KIDNEY STONES N BLADDER PROBLEMS N MRSA N OTHER # 1 Y POLIO N LUNG DISEASE/DISORDER N RADIATION / CHEMOTHERAPY N COPD N Other # 2 Y BLOOD DISEASES N SURGERY N EAR OR HEARING PROBLEMS N MUMPS N BOWEL PROBLEMS N FEMALE PROBLEMS / INFECTIONS N DEPRESSION (INCLUDING POST ) N STROKE/TIA N THYROID DISEASE N ULCERS [...] GLAUCOMA N FOOT PROBLEM N DIVERTICULITIS N CHICKENPOX N SLEEP APNEA N ALLERGIES/HAYFEVER N INFECTIOUS DISEASE N HEART ARRHYTHMIA N PROSTATE N INSOMNIA N HIGH CHOLESTEROL / HYPERLIPIDEMIA N HYPERTHYROIDISM N EYE PROBLEMS N EATING DISORDER N NEUROLOGICAL PROBLEMS N EDEMA N CHRONIC PAIN SYNDROME N HYPOTHYROIDISM N CAROTID BLOCKAGE N CONSTIPATION N BACK / NECK PROBLEMS N HAVE YOU BEEN HOSPITALIZED OR SEEN IN [facility] IN THE PAST YEAR ? N ATHEROSCLEROSIS [...] DISORDER N ALZHEIMER'S DISEASE N PAIN N HERPES N DEMENTIA N HEADACHES/MIGRAINES N SEIZURES/EPILEPSY N VASCULAR DISEASE N PACEMAKER N DIZZINESS N HEART DISEASE/HEART PROBLEMS N KIDNEY DISEASE N DEVELOPMENTAL OR BEHAVIORAL DISORDERS N MULTIPLE SCLEROSIS N SCARLET FEVER N MENTAL DISORDER/ILLNESS N CARDIAC ARRHYTHMIA N CANCER: SPECIFY N PNEUMONIA N ATRIAL FIBRILLATION N Gall [...] SNOMED-CT Code Diagnosis ICD10 Code Diagnosis Note [id number] [address] [address] 1 11/01/2020 00:00:00 01/29/2021 18:03:[id number] [address] 1 08/12/2021 00:00:00 08/12/2021 12:01:[id number] [address] 1 09/12/2021 00:00:00 09/12/2021 19:08:[id number] [address] 1 04/29/2022 00:00:00 04/29/2022 16:42:07 [id number] WILTON Ramsay [address] [address] 1 05/12/2024 14:07:51 05/12/2024 14:52:22 Adult health examination 048922628 Z00.00 Encouraged high protein, low carb, low sugar foodEncour aged increased cardiovasc ular exercise Essential hypertension 15010351 I10 She will trial 1/2 tab of labetlol BID and keep BP log Anxiety 99667404 F41.9 Fatigue 12355462 R53.83 [id number] Shannan Estevezroxana [facility] [address] 1 06/13/2024 15:27:12 06/13/2024 16:49:16 Anemia 036058676 D64.9 Prediabetes 612519755 R7 3.03 Did not tolerate Metformin, N/V/DOzemp ic sample given in office Essential hypertension 92709348 I10 She will trial 1/2 tab of labetlol BID and keep BP log [id number] Shannan Estevezroxana [facility] [address] 1 08/18/2024 14:50:46 08/18/2024 17:07:53 Prediabetes 535596737 R73.03 Did not tolerate Metformin, N/V/D, stopping metforminO zempic sample given in office Essential hypertension 17389949 I10 She will trial 1/2 tab of labetlol BID and keep BP log Thyroid st imulating hormone level above reference range 122725146 R79.89 Health Concerns Section Related Observation LastModified by Organization Detai ls LastModified Time None Recorded Concern Status LastModified by Organization Details LastModified Time None Recorded Advance Directives Directive N: Payers Encounter Date Sequence Insurance Name Policy Number Policy Ball Covered Member ID Ball Member ID Guarantor Name 05/12/2024 1 [facility] (MEDICAID HMO) [id number] Geneva Allen [id number] Geneva Allen 06/13/2024 1 [facility] (MEDICAID HMO) [id number] Geneva Allen [id number] Geneva Allen 08/18/2024 1 [facility] (MEDICAID HMO) [id number] Geneva Allen [id number] Geneva Allen Notes Date Note Type Note [...] is feeling fatigued. Flu shot: recommended at [facility] vaccines: declinesTdap: 2022 WILTON Ramsay [address], [place], [address], [employer] 05/12/2024 14:47:33 06/13/2024 text/html Geneva Allen is a 28 year old female patient here today to follow up on labs. She had annual labs on 05/12/24 which identified an abnormal CBC, vitamin D, and A1C. She began Metformin and had GI side effects included nausea and diarrhea. She has concerns with menstrual abnormalities since starting Metformin and Ozempic sample. WILTON Ramsay [address], [place], [address], [employer] 06/13/2024 16:48:56 08/18/2024 text/html Geneva Allen is [...] headedness with changing positions. WILTON Ramsay [address], [address], [place], [address], [employer] 08/18/2024 16:47:48 OBGyn Episode No OBEpisode recorded.
--- OUTSIDE RECORDS SUMMARY | 2024-08-31 12:11 | XMS_ITS | Clinical Summary ---
Author Organization [email or web address] Address [address] [facility] [place] [address] Care Team Providers Care Documentation Improvement Specialist Name Role Phone Ana Akins MD Primary Care Provider [phone] Source Comments [facility],non-owned Affiliates and Associated Physician Practices is amultiple site organization consisting of ambulatory clinics and hospital sitesin [place], [place], [place] and [place]. This disclosure is being madepursuant to the Care Everywhere program and may not contain all information available regarding this patient. Last updated 18.[facility] Allergies No known active allergies Medications Be [...] Mass Index 51.18 01/27/2023 10:51 AM CDT Plan of Treatment Health Maintenance Due Date Last Done Comments PAP SMEAR 1997 HIV SCREENING 2012 HPV VACCINE (1 - 3-dose series) 2012 HEPATITIS C SCREENING 09/16/2015 DTAP/TDAP/TD VACCINES (1 - Tdap) 2016 HEPATITIS B VACCINE (1 of 3 - 19+ 3-dose series) 2016 COVID-19 VACCINE (1 - 2023-2 5 season) 2024 INFLUENZA VACCINE (#1) 2024 3, 05/09/2003 DEPRESSION SCREENING 08/02/2024 ZOSTER VACCINE (1 of 2) 2047 HIB VACCINE Aged Out No longer eligi ble based on patient's age to complete this topic MENINGOCOCCAL (Group B) VACCINE Aged Out No longer eligible b ased on patient's age to complete this topic MENINGOCOCCAL VACCINE Aged Out No mamadou prema eligible based on patient's age to complete this topic PNEUMOCOCCAL VACCINE Aged Out No long er eligible based on patient's age to complete this topic Care Teams Documentation Improvement Specialist Relationship Specialty Start Date End Date Ana Akins MD [address] [facility] [address] [place], [place] [id number] PCP - General Pediatrics 05/09/15
--- OUTSIDE RECORDS SUMMARY | 2024-08-31 12:11 | XMS_ITS | Referral Summary ---
Author Organization [facility] [employer] Address [address] [facility] [place] [address] Care Team Providers Care Deli Cook Name Role Phone Ana Akins MD Primary Care Provider [phone] Source Comments [facility],non-owned Affiliates and Associated Physician Practices is amultiple site organization consisting of ambulatory clinics and hospital sitesin [place], [place], [place] and [place]. This disclosure is being madepursuant to the Care Everywhere program and may not contain all information available regarding this patient. Last updated 18.[facility] Allergies No known active allergies Medications Be [...] 01/27/2023 10:51 AM CDT Plan of Treatment Not on file Care Teams Deli Cook Relationship Specialty Start Date End Date Ana Akins MD [address] [facility] [address] [place], [place] [id number] PCP - General Pediatrics 05/09/15
[2024-08-31 12:20] LABS: IFOB Positive Control Positive; Immunochemical Fecal Occult Bl Negative (N)
== END 2024-08-31 11:13 | disposition home or self-care (01) ==
LOC: ANHLAB 11:13
PROVIDERS: PCP Nurse Practitioner Family; Visit Provider Internal Medicine Hematology & Oncology
DX: D50.9 Iron deficiency anemia, unspecified (principal)
CPT/HCPCS: 82274

== ENCOUNTER 2025-03-12 14:39 | Outpatient (CLI) | payer OTHER, SELFPAY ==
[2025-03-12 14:51] LABS: Hematocrit 36.5 % (37.0-47.0); Hemoglobin 11.7 g/dL (12.0-15.0); Immature Granulocyte Percent A 0.3 % (0-0.5); Lymphocytes Absolute Auto 3.24 K/mm3 (0.9-3.2); Mean Corpuscular HGB Conc 32.1 g/dl (32-36); Mean Corpuscular Hemoglobin 24.5 pg (26-34); Mean Corpuscular Volume 76.5 fl (80-100); Nucleated Red Blood Cells Absolute Auto 0.000 K/mm3 (0.0-0.012); Nucleated Red Blood Cells Perc 0.0 % (0.0-0.2); Platelet Count Result 358 k/mm3 (150-375); Red Blood Count 4.77 M/mm3 (4.2-5.4); White Blood Count 12.0 K/mm3 (4.5-10.0)
--- OUTSIDE RECORDS SUMMARY | 2025-03-12 14:53 | XMS_ITS | Encounter Summary ---
Author Organization [facility] Address [address] [place] [address] Care Team Providers Care Bit Sharpener Name Role Phone Jacquelyn Craft MD Primary Care Provider + Encounter Details Date Type Department Care Team (Late st Contact Info) Description 08/21/2016 Orders Only [facility] ProviderJuan MD [address] [place] [address] Social History Tobacco Use Types Packs/Day Years Used Date Smoking Tobacco: Never Assessed Comments Unknown Sex and Gender Information Value Date Recorded Sex Assigned at Not on file 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
--- OUTSIDE RECORDS SUMMARY | 2025-03-12 14:53 | XMS_ITS | Continuity of Care Document ---
Author Name [facility] Organization [facility] Care Team Providers Care Muskrat Trapper Name Role Phone [facility] Unavailable Unavailable Social History Combined list of available smoking, tobacco, and other social history from Department of Defense and Veterans Affairs facilities. Social History Type Response Date Comment Sourc e This section is an empty social history section. [facility]
--- OUTSIDE RECORDS SUMMARY | 2025-03-12 14:53 | XMS_ITS | Clinical Summary ---
Author Organization [facility] [employer] Address [address] [place] [address] Care Team Providers Care Stogy Roller Name Role Phone Ana Akins MD Primary Care Provider [phone] Allergies No known active allergies Medications escitalopram [...] Encounters Date Type Department Care Team Description 03/07/2025 External Device Data [facility] ABSTRACTION Provider, Abstract 03/06/2025 External Device Data [facility] ABSTRACTION Provider, Abstract 02/14/2025 External Device Data [facility] ABSTRACTION Provider, Abstract 02/13/2025 External Device Data [facility] AB[facility]CTION Provider, Abstract 01/30/2025 External Device Data [facility] ABSTRACTION Provider, Abstract from Last 3 Months Family History Medical [...] on file 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 Gender Identity Not on file Sexual Orientation Not on file Last Filed Vital Signs Vital Sign Reading Time Taken Comments Blood Pressure 132/69 07/28/2024 2:32 PM PEANUT SALTER Pulse 80 07/28/2024 2:32 PM PEANUT SALTER Temperature 36.6 C (97.8 F) 07/28/2024 2:32 PM PEANUT SALTER Respiratory Rate 16 07/28/2024 2:32 PM PEANUT SALTER Oxygen Saturation 96% 07/28/2024 2:32 PM PEANUT SALTER Inhaled Oxygen Concentration - - Weight 149.7 kg (330 lb) 07/28/2024 2:32 PM PEANUT SALTER Height 172.7 cm (5' 8) 07/28/2024 2:32 PM PEANUT SALTER Body Mass Index 50.18 07/28/2024 2:32 PM PEANUT SALTER Plan of Treatment Upcoming Encounters Date Type Department Care Team (Late st Contact Info) Description 03/20/2025 2:00 PM CDT Office Visit [facility] Oncology and Hematology [facility] [address] [place] [address] [facility] [address] [place] [address] Jonathon Ordonez MD [address] [facility] [address] [place] [address] Health Maintenance Due Date Last Done Comments HPV VACCINES (1 - 3-dose series) 2012 DTAP/TDAP/TD VACCINES (1 - Tdap) 2016 HEPATITIS B VACCINES (1 of 3 - 19+ 3-dose series) 09/02 CERVICAL CANCER SCREENING 2018 HPV/Cotest (21-29) 2018 PAP SMEAR 2018 INFLUENZA VACCINE (#1) 2025 Preventative Visit-Managed Medicaid 05/13/202505/12 Insurance [employer] Care Teams Stogy Roller Relationship Specialty Start Date End Date Ana Akins MD [address] [place] [address] PCP - General Pediatrics 09/08/24
--- OUTSIDE RECORDS SUMMARY | 2025-03-12 14:53 | XMS_ITS | Clinical Summary ---
Author Organization [facility] [employer] Address [address] [facility] [place] [address] Care Team Providers Care Home Coordinator Name Role Phone Ana Akins MD Primary Care Provider [phone] Source Comments [employer],non-owned Affiliates and Associated Physician Practices is amultiple site organization consisting of ambulatory clinics and hospital sitesin [place], [place], [place] and [place]. This disclosure is being madepursuant to the Care Everywhere program and may not contain all information available regarding this patient. Last updated 18.[employer] Allergies No known active allergies Medications * Be aware that medications may not be up to date on this document. Alwaysverify current medications with the patient. 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 Gender Identity Not on file Sexual Orientation Not on file Last Filed Vital Signs Vital Sign Reading Time Taken Comments Blood Pressure 123/65 01/27/2023 10:51 AM CDT Pulse 79 01/27/2023 10:51 AM CDT Temperature 37.2 C (99 F) 12/24/2017 5:58 PM CDT Respiratory Rate 16 12/24/2017 5:58 PM CDT Oxygen Saturation 98% 12/24/2017 5:58 PM CDT Inhaled Oxygen Concentration - - Weight 148.2 kg (326 lb 12.8 oz) 2022 10:51 AM CDT Height 170.2 cm (5' 7) 01/27/2023 10:5 1 AM CDT Body Mass Index 51.18 01/27/2023 10:51 AM CDT Plan of Treatment Health Maintenance Due Date Last Done Comments HIV SCREENING 2012 HEPATITIS C SCREENING 09/16/2015 DTAP/TDAP/TD VACCINES (1 - Tdap) 2016 HEPATITIS B VACCINE (1 of 3 - 19+ 3-dose series) 2016 PAP SMEAR 2018 COVID-19 VACCINE (1 - 2023-2 5 season) 2024 DEPRESSION SCREENING 08/02/2024 HPV VACCINE (1 - 3-dose SCDM series) 2024 INFLUENZA VACCINE (#1) 2025 3, 05/09/2003 ZOSTER VACCINE (1 of 2) 2047 HIB VACCINE Aged Out No longer eligi ble based on patient's age to complete this topic MENINGOCOCCAL (Group B) VACCINE SHARED DECISION-MAKING Aged Out No longer eligible based on patient's age to complete this topic MENINGOCOCCAL GROUPS A/C/Y/W VACCINE Aged Out No longer eligible b ased on patient's age to complete this topic PNEUMOCOCCAL VACCINE Aged Out No long er eligible based on patient's age to complete this topic Insurance MEDICAID - [place] Care Teams Home Coordinator Relationship Specialty Start Date End Date Ana Akins MD [address] [place] [address] [address] [place] [address] PCP - General Pediatrics 05/09/15
--- OUTSIDE RECORDS SUMMARY | 2025-03-12 14:53 | XMS_ITS | Encounter Summary ---
Author Organization [facility] Address [address] [place] [address] Care Team Providers Care Electrical Assistant Name Role Phone Jacquelyn Craft MD Primary Care Provider + Encounter Details Date Type Department Care Team (Late st Contact Info) Description 09/17/2016 Orders Only [facility] ProviderJuan MD [address] [place] [address] Social History Tobacco Use Types Packs/Day Years Used Date Smoking Tobacco: Never Alcohol Use Standard Drinks/Week Comments No 0 (1 standard drink = 0.6 oz pur e alcohol) Comments Unknown Sex and Gender Information Value Date Recorded Sex Assigned at Not on file Legal 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
--- OUTSIDE RECORDS SUMMARY | 2025-03-12 14:53 | XMS_ITS | Clinical Summary ---
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
--- OUTSIDE RECORDS SUMMARY | 2025-03-12 14:53 | XMS_ITS | Encounter Summary ---
Author Organization [facility] Address [address] [place] [address] Care Team Providers Care Radio Script Writer Name Role Phone Jacquelyn Craft MD Primary Care Provider + Encounter Details Date Type Department Care Team (Late st Contact Info) Description 09/21/2016 Orders Only [facility] ProviderJuan MD [address] [place] [address] Social History Tobacco Use Types Packs/Day Years Used Date Smoking Tobacco: Never Alcohol Use Standard Drinks/Week Comments No 0 (1 standard drink = 0.6 oz pur e alcohol) Comments Unknown Sex and Gender Information Value Date Recorded Sex Assigned at Not on file 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
[2025-03-12 16:55] LABS: Iron 34 ug/dL (37-170)
[2025-03-12 16:56] LABS: CRP 1.2 mg/dL (<1.0)
[2025-03-12 17:06] LABS: Percent Iron Saturation 9 % (20-50)
[2025-03-12 17:37] LABS: Ferritin 23.30 ng/mL (6.24-137)
[2025-03-12 18:06] LABS: Vitamin B12 439.0 pg/mL (239-931)
== END 2025-03-12 14:40 | disposition home or self-care (01) ==
LOC: ANHLAB 14:40
PROVIDERS: PCP Nurse Practitioner Family; Visit Provider Internal Medicine Hematology & Oncology
DX: D64.9 Anemia, unspecified (principal)
CPT/HCPCS: 36415; 82607; 82728; 82746; 83540; 83550; 85025; 85652; 86140